=== PATIENT | female | born 1960 | race Caucasian/White ===

== ENCOUNTER 2017-12-17 08:47 | Emergency (ER) | payer OTHER, SELFPAY ==
[2017-12-17 08:49] VITALS: BP 152/88; PULSE 98; RESP 16; TEMP 36.6; O2SAT 98; BMI 28.3
--- NOTE | 2017-12-17 09:10 | VDLE_ITS ---
Reason For Study: LEG PAIN RIGHT LEFT GSV is normal. CFV is compressible, spontaneous, phasic, CFV is compressible, spontaneous, phasic, competent, and demonstrates normal competent and demonstrates normal augmentation. augmentation. FV is compressible, spontaneous, phasic, competent and demonstrates normal augmentation. POP V is compressible, spontaneous, phasic, competent and demonstrates normal augmentation. T/P Trunk is compressible. PTV is compressible. RT PerV is compressible. Procedure Exam performed portable in ED. A preliminary report was called and/or faxed to Dr. Foley. Interpretation Summary Deep veins of the right lower extremity are patent and compressible segmentally. There is no evidence of right lower extremity deep vein thrombosis. Valvular competence appears intact within the proximal deep venous system on the right . The right greater saphenous vein appears patent and compressible segmentally. Ordering Physician: Jonny Foley Referring Physician: Jesus Milton M.D. Performed By: Jing Resendiz RVT
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
--- NOTE | 2017-12-17 10:24 | ED.DEP ---
ED Disposition - Plan for ED Patient: Chief Complaint: Lower Extremity Injury Instructions: ED Strain Muscle Ext Referrals: Jesus Milton MD [Primary Care Provider] - 5-7 Days
[2017-12-17 10:27] VITALS: RESP 16
== END 2017-12-17 10:27 | disposition home or self-care (01) ==
PROVIDERS: Emergency Provider Emergency Medicine; Family Provider Family Medicine; PCP Family Medicine
DX: S86.911A Strain of unspecified muscle(s) and tendon(s) at lower leg level, right leg, initial encounter (principal); X58.XXXA Exposure to other specified factors, initial encounter; Y93.55 Activity, bike riding; Y92.89 Other specified places as the place of occurrence of the external cause; Y99.8 Other external cause status
CPT/HCPCS: 93971; 99282

== ENCOUNTER → 2018-04-06 12:13 | Outpatient (CLI) | payer OTHER, SELFPAY ==
--- NOTE | 2018-04-06 12:17 | RAD_ITS ---
STUDY: X-RAY CHEST REASON FOR EXAM: Female, 58 years old. Bronchitis TECHNIQUE: Frontal and lateral views of the chest. COMPARISON: None. FINDINGS: The lungs are clear and expanded. There is no demonstrated pleural abnormality. Normal size heart. Normal mediastinum and elizabeth. Normal visualized pulmonary arteries. Normal visualized aortic arch and descending thoracic aorta. Normal visualized thoracic spine. Normal visualized ribs, clavicles, and shoulders. There is no demonstrated abnormality of the visualized soft tissue structures of the upper abdomen. RAD/Chest PA and Lateral IMPRESSION: Normal x-ray examination of the chest. Electronically Signed: Jaxson Red MD at 4:49 EDT Tel , Service support ,
== END ==
PROVIDERS: Family Provider Family Medicine; PCP Family Medicine; Referring Provider Family Medicine; Visit Provider Family Medicine
DX: J20.9 Acute bronchitis, unspecified (principal)
CPT/HCPCS: 71046

== ENCOUNTER 2019-04-25 11:56 | Day surgery (SDC) | payer OTHER, SELFPAY ==
--- NOTE | 2019-04-24 17:53 | PCM.HP.OB ---
- Problem List (1) PMB (postmenopausal bleeding) Status: Acute (2) Endometrial polyp Status: Acute History Date of Admission: 04/25/19 History of this : This is a 59 year-old with PMB and a possible polyp on US. Surgical History: Surgical History (Last Updated 04/24/19 @ 17:54 by Kim Huynh DO) History of colonoscopy Z98.890 Allergies nitrofurantoin [From Macrobid] Allergy (Verified 04/18/19 11:21) Rash pine nut Allergy (Verified 04/18/19 11:21) Rash Home Medications: Home Medications Multivitamin [Multiple Vitamins] 1 ea PO DAILY 04/18/19 Smoking Status: Never smoker History Past Pregnancies: Past Pregnancies Delivery Date Name GA/ Weeks Outcome Route Wt Infant Sex Labor Length Anesthesia Delivery Location Provider FOB Review of Systems Constitutional: Denies: Fever Eyes: Denies: Blurred vision HEENT: Denies: Head Aches Cardiovascular: Denies: Chest Pain Respiratory: Denies: Shortness of Breath Gastrointestinal: Denies: Abdominal Pain Genitourinary: Denies: Dysuria Gynecological: Reports: Vaginal bleeding Psychiatric: Denies: Anxiety, Depression Hematologic/ Lymphatic: Denies: Easy Bruising, Easy Bleeding Physical Exam General: Alert, No apparent distress HEENT: Atraumatic Cardiovascular: Regular rate Lungs: Clear to auscultation Abdomen: Soft, Non Tender, Non-Distended Extremities:: No edema Neurological: Neuro grossly intact Assessment/Plan All Active Problems PMB (postmenopausal bleeding) (Acute) Endometrial polyp (Acute) This is a 59 year-old with PMB and a polyp on pelvic US. - R/b/a of a hysteroscopy D&C polypectomy were discussed and pt desires to proceed with surgery.
[2019-04-25] VITALS (7 sets, daily range): BP systolic 132–150; BP diastolic 66–83; PULSE 16–88; RESP 15–16; TEMP 36.1–37; O2SAT 97–100; BMI 29.8
[2019-04-25 12:24] LABS: Hematocrit 45.9 % (37-47); Hemoglobin 15.1 g/dL (12.0-15.0); Mean Corp Hgb Conc 32.9 g/dL (32-36); Mean Corpuscular Hgb 29.3 pg (27.0-32.0); Mean Platelet Vol. 9.6 fl (6.2-12.0); Platelet Count 223 K/mm3 (150-450); RBC Distribution Width CV 12.2 % (11.6-14.6); RBC Distribution Width SD 39.8 fl (35.1-43.9); Red Blood Count 5.16 M/mm3 (4.2-5.4); White Blood Count 7.6 K/mm3 (4.4-11.0)
[2019-04-25] MEDS: Lactated Ringers 1,000 ML 100 ML IV (12:32)
[2019-04-25 12:37] LABS: Internal QC Validated? YES +Cl - CLEAR BKGD; Pregnancy, Urine Negative Negative
--- NOTE | 2019-04-25 13:25 | EMB_PTH ---
PATIENT: KAITY ANGEL LOC: [facility] – [place] U#:[id number] AGE/SX: 59/F ROOM: RE04/25/[address]: Dr. Kim Huynh DO : 1960 BED: DIS: 04/25/2019 SPEC #: [id number] RECD: 04/25/19 15:08 STATUS: CORNELIA DA #: [id number] MARIANN: 04/25/19 13:[address]: Kim Huynh DEPT: SURGICAL PATHOLOGY RECD BY: Johnny Bedolla ENTERED: 04/26/19 11:05 SP TYPE: ENDOM BX/C OTHR DR: Dr. Jesus Cadena MD Tissues: Endometrium, NOS Procedures: Surgery Specimen Level IV HEADER OPERATION: Hysteroscopy, polypectomy, endometrial biopsy, Symphion PRE-OP DIAGNOSIS: Postmenopausal bleeding; endometrial polyp TISSUE SUBMITTED: Endometrial curettings and polyp MICROSCOPIC DIAGNOSIS Endometrial curettings and polyp: Fragments of weakly proliferative endometrium. Fragments of benign ecto- and endocervical epithelium, blood and mucous. See comment. AGUSTO:valeria 04/29/19 COMMENT A few of the fragments have polypoid appearance, may represent fragments of polyp. MICROSCOPIC DESCRIPTION Slides are reviewed. GROSS DESCRIPTION Received in fixative is one container labeled with the patient's name and designated endometrial curettings and polyp. The specimen consists of multiple fragments of hemorrhagic mucoid tissue that in aggregate measure 5 x 3 x 0.3 cm. The entire specimen is submitted in two cassettes. / AGUSTO:valeria 04/26/19 TC:5 CPT: 50701
--- NOTE | 2019-04-25 14:07 | DCINST_ITS ---
You will use the following diet at home:: No restrictions, Regular Discharge Activity: May Drive, May Shower May resume sexual activity in: 1-2 weeks Weight Bearing Status: Full weight bearing Lifting Restrictions: None Call your doctor if you observe: Fever of 101 or Higher, Inability to urinate, Inability to have a bowel movement, Using more than one pad per hour, Shortness of breath, Dizziness, Fainting spells, Chest pain, Increased palpitations (irregular heartbeat), Calf discomfort, Uncontrolled pain Instructions: Dilation and Curettage Allergies/Adverse Reactions: Allergies nitrofurantoin [From Macrobid] Allergy (Verified 04/25/19 12:21) Rash pine nut Allergy (Verified 04/25/19 12:21) Rash Medications to take at Discharge Multivitamin [Multiple Vitamins] 1 ea PO DAILY 04/18/19 Primary Care Physician: Jesus Cadena MD [Primary Care Provider] - Test Results: Test results from this visit will be discussed in further detail at your follow- up appointment, if applicable. Please Follow Up With: Kim Huynh DO When: 1 week Proposed Discharge Date: 04/25/19
--- NOTE | 2019-04-25 14:28 | PCM.OPRPT ---
Problem List (1) PMB (postmenopausal bleeding) Status: Acute (2) Endometrial polyp Status: Acute Report of Operation Date of Procedure: 04/25/19 Pre-Operative Diagnosis: PMB, polyp on US Post-Operative Diagnosis: PMB, 2 flat endometrial polyps noted, atrophic appearing endometrium Surgery/Procedure Performed:: Hysteroscopy, D&C, polypectomy Description of Surgical Findings:: Normal appearing uterine cavity. Bilateral tubal ostia visualized. Atrophic and thin appearing endometrium. There was 1 flat polyp noted on the posterior uterine wall, and 1 flat polyp noted in the left uterine cornua. Minimal descent of uterus and cervix. Type of Anesthesia:: MAC Specimen's removed: Endometrial curettings, polyp Drains: None Estimated Blood Loss (mL): < 10 cc Fluids Replaced: 350 cc fluid deficit Description of Procedure: Patient was taken to the operating room where anesthesia was found to be adequate. She was prepped and draped in the dorsal lithotomy position using yellowfin stirrups. A weighted speculum was placed in the vagina to expose the cervix. A single-tooth tenaculum was placed on the cervix. The cervix was serially dilated to accommodate the hysteroscope. The hysteroscope was advanced into the uterus and distended. The uterine cavity was normal-appearing and bilateral tubal ostia were visualized. There was a flat polypoid lesion on the posterior wall of the uterus and a flat polypoid lesion in the left cornua of the uterus. The lining of the uterus was otherwise thin appearing. The Symphion device was used to remove both polyps. The hysteroscope and Symphion device were then removed from the uterus. A dilation and curettage was performed for scant tissue. Both specimens were sent to pathology for review. All instruments removed from the vagina. Bleeding was hemostatic. Patient was taken to the recovery room in stable condition. Grafts/Implants Used: None - Admit VTE Documentation VTE Present on Admission: No VTE Mechan Device Prophylaxis: SCD's VTE Pharm Prophylaxis ordered?: No
== END 2019-04-25 15:27 | disposition home or self-care (01) ==
LOC: SDC 11:59 → AC 12:01
PROVIDERS: Family Provider Family Medicine; PCP Family Medicine; Referring Provider Obstetrics & Gynecology; Visit Provider Obstetrics & Gynecology
PROC: 0UB98ZZ Excision of Uterus, Via Natural or Artificial Opening Endoscopic (ICD-10-PCS; CPT 58558; principal; 2019-04-25 13:10)
DX: N95.0 Postmenopausal bleeding (principal); N84.0 Polyp of corpus uteri
CPT/HCPCS: 58558; 36415; 81025; 85027; 88305; J7120

== ENCOUNTER → 2020-07-07 15:50 | Outpatient (CLI) | payer OTHER, SELFPAY ==
[2019-04-25 12:22] VITALS: BMI 29.8
--- NOTE | 2020-07-07 15:53 | RAD_ITS ---
STUDY: X-RAY CHEST REASON FOR EXAM: Female, 60 years old. Persistent chest complaints after pneumonia in March. TECHNIQUE: PA and lateral views of the chest. COMPARISON: 04/06/2018. FINDINGS: Lungs well-expanded. There is chronic interstitial changes without acute infiltrate or mass. There is no demonstrated pleural abnormality. Normal size heart. Normal mediastinum and elizabeth. Normal visualized pulmonary arteries. Normal visualized aortic arch and descending thoracic aorta. There are diffuse degenerative changes of the visualized thoracic spine. Normal visualized ribs, clavicles, and shoulders. There is no demonstrated abnormality of the visualized soft tissue structures of the upper abdomen. RAD/Chest PA and Lateral IMPRESSION: Degenerative changes, as described above. No demonstrated acute cardiopulmonary process. There is no interval change. Electronically Signed: Torres Ford DO at 16:06 EST Tel [phone], Service support ,
== END ==
PROVIDERS: PCP Family Medicine; Referring Provider Family Medicine; Visit Provider Family Medicine
DX: J20.9 Acute bronchitis, unspecified (principal)
CPT/HCPCS: 71046

== ENCOUNTER → 2020-10-06 12:54 | Outpatient (CLI) | payer OTHER, SELFPAY ==
[2019-04-25 12:22] VITALS: BMI 29.8
--- NOTE | 2020-10-08 09:35 | PFTCOMP ---
INTRODUCTION: The patient is a 60-year-old female that presents for pulmonary function studies secondary to a diagnosis of reactive airway disease. Respiratory therapy reports good patient effort. Bronchodilators were used during testing. INTERPRETATION: Forced expiration spirometry demonstrates no evidence of a large airways obstructive ventilatory defect. There was no significant response to aerosolized bronchodilators. Spirograms are of good quality and plateau normally. Body plethysmography was performed and reveals uniformly elevated lung volumes across the board, likely spurious in nature. Diffusing capacity by single breath CO is within normal limits. IMPRESSION: Grossly normal pulmonary function studies.
== END ==
PROVIDERS: PCP Family Medicine; Referring Provider Family Medicine; Visit Provider Family Medicine
DX: J45.909 Unspecified asthma, uncomplicated (principal)
CPT/HCPCS: 94060; 94726; 94729

== ENCOUNTER → 2021-12-03 | Outpatient (CLI) | payer OTHER, SELFPAY ==
--- NOTE | 2021-12-03 18:17 | US_ITS ---
STUDY: ABDOMINAL ULTRASOUND - RIGHT UPPER QUADRANT REASON FOR VISIT: Female, 61 years old. ABDOMEN PAIN RUQ PAIN TECHNIQUE: Ultrasound evaluation of the right upper quadrant was performed with real-time and static bryant-scale imaging. TECHNICAL QUALITY: Adequate. COMPARISON: None. FINDINGS: Liver: There is increased echogenicity consistent with fatty infiltration. The bile ducts are within normal limits. There is hepatic color flow. The direction of portal flow is hepatopetal. There is no demonstrated mass lesion. Gallbladder: Normal distended gallbladder. The gallbladder wall measures 1.4 mm. There is a negative sonographic Meeks''s sign. There is no pericholecystic fluid. There is biliary sludge dependent within the gallbladder vs small gallstones. Common Bile Duct (C.B.D.): The common bile duct measures ( in mm): 4.1 Pancreas: Normal size of the head, body of the pancreas. There is increased echogenicity of the pancreas. There is no demonstrated pancreatic mass or cyst. Right Kidney: Normal size of the right kidney. The right kidney measures 11.3 cm. . Normal renal cortex. There is no demonstrated renal mass or cyst. There is no right hydronephrosis. Aorta: It is not visualized. There is too much overlying bowel gas. . US/Abdomen Limited IMPRESSION: Fatty liver. There is biliary sludge dependent within the gallbladder vs small gallstones. Electronically Signed: Donte Wagoner MD at 18:58 EDT ,
== END | disposition home or self-care (01) ==
LOC: US 18:15
PROVIDERS: PCP Family Medicine; Visit Provider Family Medicine
DX: R10.11 Right upper quadrant pain (principal); K76.0 Fatty (change of) liver, not elsewhere classified
CPT/HCPCS: 76705

== ENCOUNTER → 2021-12-31 | Outpatient (CLI) | payer OTHER, SELFPAY ==
--- NOTE | 2021-12-31 09:55 | NM_ITS ---
EXAMINATION: NUCLEAR MEDICINE HEPATOBILIARY SCAN (HIDA SCAN) OF 1157 HOURS ON 12/31/2021 TECHNIQUE: 5.0 mCi technetium 99m choletec was intravenously administered and static images were obtained. COMPARISON: None. FINDINGS: Mild hepatomegaly is suggested. There is early visualization of the gallbladder at 15 minutes. There is free flow of contrast into the duodenum. There is no dilatation of the common duct. There are no findings of an acute or chronic cholecystitis. There are no findings of cystic or common duct obstruction. There is a near normal 47% ejection fraction between 1 minute and 45 minutes. There is no evidence of an adynamic cholecystitis. IMPRESSION 1. Findings suggestive of mild hepatomegaly. 2. No evidence of an acute or chronic cholecystitis. 3. No evidence of an adynamic cholecystitis. 4. No evidence of cystic or common duct obstruction. Electronically Signed: Brock Slater MD at 2:14 EDT , NM/Hepatobilliary Img w/Pharm Int IMPRESSION: undefined
== END | disposition home or self-care (01) ==
PROVIDERS: PCP Family Medicine; Visit Provider Surgery
DX: K82.8 Other specified diseases of gallbladder (principal)
CPT/HCPCS: 78227; A9537

== ENCOUNTER 2022-01-17 06:19 | Day surgery (SDC) | payer OTHER, SELFPAY ==
[2022-01-17] VITALS (7 sets, daily range): BP systolic 102–142; BP diastolic 54–79; PULSE 71–85; RESP 14–16; TEMP 36.8–36.9; O2SAT 93–100; BMI 27.5
--- NOTE | 2022-01-17 | IMM_PTH ---
PATIENT: KAITY ANGEL LOC: [place] U#:[id number] AGE/SX: 61/F ROOM: RE01/17/[address]: Dr. Collette Ji MD : 1960 BED: DIS: 01/17/2022 SPEC #: [id number] RECD: 01/18/22 07:54 STATUS: CORNELIA REVamshi #: [id number] MARIANN: 01/17/22 00:[address]: Collette Ji DEPT: IMMUNOHISTOCHEMISTRY RECD BY: Karl Lira ENTERED: 01/18/22 07:55 SP TYPE: IMMUNO OTHR DR: Dr. Jesus Cadena MD Tissues: Gastric mucous membrane Procedures: H Pylori (initial) PHYSICIAN & INSTITUTION [place] [id number] SPECIMEN INFORMATION: Tissue Source: A. Pre-pyloric biopsy Clinical Info: RUQ fullness, gallbladder sludge Specimen Number: [id number] CPT code: 51112 METHODOLOGY: Deparaffinized sections of prefer/formalin-fixed tissue or PAP/DQ stained slides are incubated with monoclonal/polyclonal antibodies/oligonucleotide probes. Localization is made via biotin free immunoperoxidase method. Appropriate controls are performed and reacted as expected. Results on target cell population are indicated in the following table: RESULTS: ANTIBODY / CLONE RESULT Block A H Pylori (polyclonal) negative These tests were developed and their performance characteristics determined by [facility]. They may not have been cleared or approved by the U.S. Food and Drug Administration. The FDA has determined that such clearance or approval is not necessary. The above immunohistochemical/dualISH markers are ordered and reviewed by the Pathologist. INTERPRETATION: A. Pre-pyloric biopsy: Negative for Helicobacter pylori organisms. SJ:karli 01/18/22
[2022-01-17] MEDS: Lactated Ringers 1,000 ML 15 ML IV (06:58)
--- NOTE | 2022-01-17 07:15 | PCM.HP.BLA ---
History and Physical Date of Admission: 01/17/22 Date of Service:? 01/10/22 MR#: [id number] Acct: [id number] Name:KAITY CHAMBERS Rep #: [id number] : 1960 ? ? Provider: Dr. Collette Ji MD Age/Sex:? 61/F ? ? [place] [facility] [place] Status: Signed Intake Intake Visit Reasons:?DISCUSS PLAN FOR RUQ PAIN Chief Complaint: discuss hida [employer] Required: No Is patient in pain?: No Allergies nitrofurantoin [From Macrobid] Allergy (Verified 01/10/22 09:12) Rashpine nut Allergy (Verified 01/10/22 09:12) Rash Is last menstrual period known: No Post menopausal: Yes Patient : No PFSH Surgical History? History of colonoscopy Family History? Mother Heart disease Hypertension Breast cancerFather Heart disease Hypertension Social History? Smoking Status:? Never smoker alcohol intake:? never substance use type:? does not use HPI HPI HPI: KAITY ANGEL, is a 61 F who presents to the office today for for follow-up of right upper quadrant pain.? Patient did have a HIDA scan that showed a 47% ejection fraction with his normal.? Patient states that she did get her pain was a little bit worse during the HIDA states is normally at 1-2/10 and was may be up to 4/10 during that time.? Patient did have a lot of diarrhea after the HIDA scan as well.? Patient also states she does have the chronic -07/2009 right upper quadrant pain, right under her ribs but it can get worse occasionally with eating but is not consistent.? Patient has been on Nexium 40 mg p.o. daily for about a month and has not really noticed a difference with this. Exam Const General: cooperative, healthy appearing and no acute distress Nutritional Appearance: well nourished HENMT Head: normal to inspection Resp Effort & Inspection: normal respiratory effort Auscultation: clear to auscultation bilaterally Cardio Rate: regular rate Rhythm: regular rhythm GI Inspection: non-distended Palpation: soft, no guarding, no hernias and nontender Skin General: no rashes or lesions noted Neuro General: patient alert, patient awake and patient oriented x3 Extrem General: no clubbing, cyanosis or edema Psych Affect: normal affect COVID (Procedure Consent) Procedure Criteria Procedure Criteria: Yes Elective The surgeon/proceduralist and patient have discussed in detail the risk of exposure to and/or potential harm posed by the COVID-19 virus with having a surgery/procedure at this time versus the risk of? delaying the surgery/procedure. It is not possible to know either the risk of delaying the surgery or procedure or chance of getting an infection with perfect accuracy, but a joint decision was made between the patient and the surgeon/proceduralist ?to proceed at this time with the scheduled surgery/procedure as indicated on the consent form. Assessment and Plan Assessment and Plan (1) RUQ fullness: ?Status:?Chronic ?Comment: for 1.5 years (2) Gallbladder sludge: ?Status:?Acute ?Comment: No obvious sludge on my read and also discussed with our radiologist who agrees Plan Discussed with patient that her HIDA scan was technically within normal limits at 47% again her previous ultrasound was read that there was sludge.? And working on getting an addendum/second opinion to this as I do not see any evidence of this and neither does another radiologist I talked to. I have discussed the above with the patient. I have offered the patient esophagogastroduodenoscopy for evaluation. I have explained the risks/benefits of the procedure and described the procedure.? I have discussed the risks with the patient, including but not limited to:? infection, bleeding, perforation of the GI tract requiring emergency surgery, inability to complete the procedure, injury to any internal organs, complications of anesthesia, etc. - the patient understands and agrees to proceed. I have answered all the patient's questions to the patient's satisfaction and the patient has no further questions. Collette Ji M.D. Pager: [phone] [facility] [address] [place] [address], [address] [place] [address] Office: [phone] Coding Level of Care Code Off vis,est,level 4 Diagnoses RUQ fullness? R19.8 Gallbladder sludge? K82.8 01/12/22 0757 <Electronically signed by Collette Ji MD> Date Collette Ji MD
--- NOTE | 2022-01-17 07:30 | EGD_PTH ---
PATIENT: KAITY ANGEL LOC: [place] U#:[id number] AGE/SX: 61/F ROOM: RE01/17/[address]: Dr. Collette Ji MD : 1960 BED: DIS: 01/17/2022 SPEC #: [id number] RECD: 01/17/22 11:31 STATUS: CORNELIA DA #: [id number] MARIANN: 01/17/22 07:[address]: Collette Ji DEPT: SURGICAL PATHOLOGY RECD BY: Fatimah Marin ENTERED: 01/17/22 12:15 SP TYPE: EGD BIOPSY OT DR: Dr. Jesus Cadena MD Tissues: A - Gastric mucous membrane B - Gastric mucous membrane C - Stomach, NOS Procedures: Surgery Specimen Level IV HEADER OPERATION: EGD PRE-OP DIAGNOSIS: RUQ fullness, gallbladder sludge TISSUE SUBMITTED: A. Pre-pyloric biopsy, B. Gastric body, C. GE junction MICROSCOPIC DIAGNOSIS A. Pre-pyloric biopsy: Mild gastritis. See microscopic description and comment. B. Gastric body, biopsy: Mild gastritis. See microscopic description. C. GE junction, biopsy: Fragments of gastroesophageal mucosa with moderate chronic inflammation. Intestinal metaplasia (goblet cell metaplasia) not identified. See comment. COMMENT A. The results of immunohistochemistry for Helicobacter pylori will be reported separately ([id number]). C. Alcian blue/PAS stain with matched control is used in the evaluation of the specimen. MICROSCOPIC DESCRIPTION Slides are reviewed. A & B. The specimens show fragments of gastric mucosa with chronic inflammatory cell infiltrates in the lamina propria consisting of lymphocytes and plasma cells, consistent with mild chronic gastritis. GROSS DESCRIPTION A. Received is one container labeled with the patient name and designated pre-pyloric. The specimen consists of two irregular fragment of light ferrer soft tissue that measures 0.4x 0.3 x 0.1cm. The specimen is totally submitted in one cassette. B. Received is one container labeled with the patient name and designated gastric body. The specimen consists of one irregular fragment of light ferrer soft tissue that measures 0.6 x 0.2 x 0.1 cm. The specimen is totally submitted in one cassette. C. Received is one container labeled with the patient name and designated GE junction. The specimen consists of one irregular fragment of light ferrer soft tissue that measures 0.3 x 0.3 x 0.1 cm. The specimen is totally submitted in one cassette. /SJ:cc 01/17/22 TC:3 CPT:43727 x3, 72197
--- NOTE | 2022-01-17 07:49 | OP.EGD_ITS ---
Patient Name: Tamiko Shearer Procedure Date: 01/17/2022 7:25 AM Date of : 1960 Age: 61 Procedure: Upper GI endoscopy Indications: Abdominal pain in the right upper quadrant Providers: Collette Ji MD Referring MD: Jesus Cadena Md Medicines: Monitored Anesthesia Care Patient Profile: This is a 61 year old female. Complications: No immediate complications. Procedure: Pre-Anesthesia Assessment: - Prior to the procedure, a History and Physical was performed, and patient medications and allergies were reviewed. The patient's tolerance of previous anesthesia was also reviewed. The risks and benefits of the procedure and the sedation options and risks were discussed with the patient. All questions were answered, and informed consent was obtained. Prior Anticoagulants: The patient has taken no previous anticoagulant or antiplatelet agents. ASA Grade Assessment: Per anesthesia. After reviewing the risks and benefits, the patient was deemed in satisfactory condition to undergo the procedure. After obtaining informed consent, the endoscope was passed under direct vision. Throughout the procedure, the patient's blood pressure, pulse, and oxygen saturations were monitored continuously. The gastroscope was introduced through the mouth, and advanced to the second part of duodenum. The upper GI endoscopy was accomplished without difficulty. The patient tolerated the procedure well. Scope In: 7:34:42 AM Scope Out: 7:42:25 AM Total Procedure Duration Time 0 hours 7 minutes 43 seconds Findings: The Z-line was irregular. Biopsies were taken with a cold forceps for histology. One non-bleeding superficial duodenal ulcer with no stigmata of bleeding was found in the duodenal bulb. The lesion was 2 mm in largest dimension. Mild inflammation characterized by adherent blood was found in the gastric body. Biopsies were taken with a cold forceps for histology. Biopsies were taken with a cold forceps for Helicobacter pylori cultures. The cardia and gastric fundus were normal on retroflexion. The exam of the duodenum was otherwise normal. Impression: - Z-line irregular. Biopsied. - One non-bleeding duodenal ulcer with no stigmata of bleeding. - Gastritis. Biopsied. Recommendation: - Await pathology results. - Discharge patient to home. - Resume previous diet. - Use sucralfate tablets 1 gram PO QID. - Use Nexium (esomeprazole) 40 mg PO daily. - Continue present medications. Procedure Code(s): --- Professional --- 72477, Esophagogastroduodenoscopy, flexible, transoral; with biopsy, single or multiple Diagnosis Code(s): --- Professional --- K22.8, Other specified diseases of esophagus K26.9, Duodenal ulcer, unspecified as acute or chronic, without hemorrhage or perforation K29.70, Gastritis, unspecified, without bleeding R10.11, Right upper quadrant pain CPT copyright 2017 [employer]. All rights reserved. The codes documented in this report are preliminary and upon data coder operator review may be revised to meet current compliance requirements. MD Collette Robb MD 01/17/2022 7:49:14 AM This report has been signed electronically. Number of Addenda: 0 Note Initiated On: 01/17/2022 7:25 AM
--- NOTE | 2022-01-17 07:49 | OP.CCLET_ITS ---
01/17/2022 Jesus Cadena Md Re : Upper GI endoscopy procedure for Tamiko Hernandezr Tammi This procedure was performed on Monday, January 17, 2022. My impressions and recommendations are as follows: Impressions : - Z-line irregular. Biopsied. - One non-bleeding duodenal ulcer with no stigmata of bleeding. - Gastritis. Biopsied. Recommendations : - Await pathology results. - Discharge patient to home. - Resume previous diet. - Use sucralfate tablets 1 gram PO QID. - Use Nexium (esomeprazole) 40 mg PO daily. - Continue present medications. My findings are described in the full procedure note, which is enclosed. If I can be of further assistance, please feel free to contact me at Doctor phone number(s): , Work: . Sincerely, MD Collette Robb MD 01/17/2022 7:49:14 AM This report has been signed electronically.
== END 2022-01-17 08:45 | disposition home or self-care (01) ==
LOC: EN 06:22 → AC 06:23
PROVIDERS: PCP Family Medicine; Referring Provider Family Medicine; Visit Provider Surgery
PROC: 0DJ08ZZ Inspection of Upper Intestinal Tract, Via Natural or Artificial Opening Endoscopic (ICD-10-PCS; CPT 43235; principal; 2022-01-17 07:25)
DX: K29.50 Unspecified chronic gastritis without bleeding (principal); K26.9 Duodenal ulcer, unspecified as acute or chronic, without hemorrhage or perforation
CPT/HCPCS: 43239; 88305; 88342; J7120; J2405

== ENCOUNTER 2022-02-22 09:56 | Day surgery (SDC) | payer OTHER, SELFPAY ==
[2022-02-22] VITALS (9 sets, daily range): BP systolic 134–150; BP diastolic 68–83; PULSE 67–89; RESP 16–18; TEMP 36.1–36.8; O2SAT 94–100; BMI 27.6
[2022-02-22] MEDS: Lactated Ringers 1,000 ML 15 ML IV (10:25)
--- NOTE | 2022-02-22 10:32 | HP.PCM_ITS ---
HPI - General HPI Narrative KAITY ANGEL, is a 62 F who presents for laparoscopic cystectomy due to gallbladder sludge and right upper quadrant discomfort. Patient states since she is last been seen she has completed her Carafate also took the Nexium did not notice much difference as her EGD did show some gastritis/beginning of the ulcer. Patient states her right upper quadrant pain has more been like a 1-2/10 not really more than that since the last office visit. PFSH Medical History History of ulceration No significant medical problems Post-menopausal Wears glasses Home Medications multivitamin 1 ea PO DAILY 04/18/19 [History Last Taken Unknown] Allergy/AdvReac Type Severity Reaction Status Date / Time nitrofurantoin Allergy Rash Verified 02/09/22 13:44 [From Macrobid] pine nut Allergy Rash Verified 02/09/22 13:44 Family History Mother Heart disease Hypertension Breast cancer Father Heart disease Hypertension Surgical History History of colonoscopy History of hysteroscopy Hx of esophagogastroduodenoscopy Social History Smoking Status: Never smoker alcohol intake: never substance use type: does not use Vital Signs Vital Signs Vital Signs: 02/22/22 10:18 02/22/22 10:18 Temperature 98.2 F Temperature Source Temporal Pulse Rate 75 Respiratory Rate 16 Respiratory Pattern Normal Blood Pressure 150/70 H Blood Pressure Mean 96 Blood Pressure Source Monitor Blood Pressure Position Semi-Fowlers Blood Pressure Location Right Arm Pulse Ox 100 Oxygen Delivery Method Room Air Weight Weight: 165 lb 12.602 oz Body Mass Index (BMI) 27.6 Physical Exam Const alert, oriented x3 and no apparent distress HEENT normocephalic and head/scalp atraumatic Resp normal respiratory effort Cardio regular rate GI soft to palpation and non-tender; Negative for non-distended Palpation: Negative for guarding Extremity no clubbing, cyanosis or edema Neuro CN's II-XII intact bilaterally Psych mental status grossly normal Assessment & Plan Assessment/Plan (1) Gallbladder sludge: (2) RUQ fullness: PLAN: Plan Reviewed the anatomy with the patient and discussed the procedure: laparoscopic cholecystectomy with cholangiograms, possible open. Review risks including but not limited to bleeding, infection, hernia, bile leak, retained gallstones requiring another procedure ERCP- Endoscopic Retrograde Cholangiopancreatography, injury to another organ (bile ducts, common bile duct, small bowel, etc.) and conversion to an open procedure. All questions were answered. Patient no further question this time. Collette Ji M.D. Pager: [phone] [facility] [address] [place] [address] Office: [phone]
[2022-02-22] MEDS: Cefazolin 2 GM in 0.9% Normal Saline 100 ML IV (11:01)
[2022-02-22] MEDS: Bupivacaine 0.25% 30 ML Vial OPERA.SITE (11:18)
--- NOTE | 2022-02-22 11:22 | RAD_ITS ---
INDICATION: LAP MARIA C WITH IOC EXAMINATION/TECHNIQUE: Limited spot intraoperative films are presented for evaluation. Total Fluoroscopic Time: 5.3 seconds Number of Fluoroscopic Images: Single CINE sequence. Radiation dosage : 1.47 mGy COMPARISON: None. FINDINGS: Single CINE sequence obtained demonstrated contrast injection into the cystic duct, unremarkable opacification of the cystic duct is visualized, unremarkable opacification of the intra and extrahepatic ducts, no evidence of filling defect is visualized. There is no evidence of biliary ductal dilatation. There is free passage into the duodenum. No evidence of contrast extravasation outside the biliary tree to suggest bile duct injury. RAD/Cholangiogram/ O R,Initial IMPRESSION: Unremarkable intraoperative cholangiogram. Electronically Signed: Jigar Lamb MD at 15:32 EDT ,
--- NOTE | 2022-02-22 11:30 | GALL_PTH ---
PATIENT: KAITY ANGEL LOC: [facility] [place] U[place][id number] AGE/SX: 62/F ROOM: RE02/22/[address]: Dr. Collette Ji MD : 1960 BED: DIS: 02/22/2022 SPEC #: [id number] RECD: 02/22/22 13:08 STATUS: CORNELIA REVamshi #: [id number] MARIANN: 02/22/22 11:[address]: Collette Ji DEPT: SURGICAL PATHOLOGY RECD BY: Karl Lira ENTERED: 02/22/22 13:16 SP TYPE: NILAY GUERRA DR: Licha Mccray DO Tissues: Gallbladder, NOS Procedures: Surgery Specimen Level III HEADER OPERATION: Laparoscopic cholecystectomy with IOC PRE-OP DIAGNOSIS: Gallbladder sludge and right upper quadrant discomfort TISSUE SUBMITTED: Gallbladder MICROSCOPIC DIAGNOSIS Gallbladder, cholecystectomy: Chronic cholecystitis. AM:valeria 02/23/2022 MICROSCOPIC DESCRIPTION Slides are reviewed. GROSS DESCRIPTION Received is one container labeled with the patient's name and designated gallbladder. The specimen consists of a gallbladder measuring 10 cm in length and up to 3 cm in diameter. The external surface is pink-ferrer, smooth and glistening for the most part. Focally it is granular, hemorrhagic and contains cautery artifact. The gallbladder contains green-yellow mucoid bile. No stones are identified in the container or in the gallbladder. The mucosa is bile-stained and without any mass lesions. The gallbladder wall measures up to 0.1 cm in thickness. Propulsion Engineer sections from the gallbladder and the cystic duct are submitted in one cassette. / SJ:rg 02/22/2022 TC:3 CPT: 18639
--- NOTE | 2022-02-22 11:59 | OP.PCM_ITS ---
Report of Operation Date of Procedure: 02/22/22 Pre-Operative Diagnosis: Gallbladder sludge, right upper quadrant pain Post-Operative Diagnosis: Same Surgery/Procedure Performed:: Laparoscopic cholecystectomy with cholangiograms Surgeon: Collette Ji manager harbor: Nancy Payton Type of Anesthesia: General/Supplemental Anesthesiologist: Sunny Gallardo Special Medications: Ancef 2 g IV x1 Specimen's removed: Gallbladder Estimated Blood Loss (mL): < 10 cc Description of Procedure: Indications: this is a 62 year-old female who developed abdominal pain/nausea/vomiting and on workup was found to have cholelithiasis, with a normal common bile duct. Laparoscopic cholecystectomy was elected. Description procedure: The patient was placed on operating table in supine position. A timeout was completed verifying correct patient, procedure, site, position and special equipment prior to beginning procedure. General Anesthesia was induced. The abdomen was prepped and draped in usual sterile fashion. An incision was made in the natural skin line above the umbilicus. The fascia was elevated and incised. The peritoneum was elevated and incised. Entry into the peritoneum was confirmed visually and no bowel was noted in the vicinity of the incision. Jang trocar was placed. The abdomen was insufflated with carbon dioxide to a pressure of 12-15 mmHg. Patient tolerated insufflation well. The laparoscope was then inserted and abdomen inspected. No injuries from initial trocar placement were noted. Additional trochars were then inserted in the following locations 5 mm trocar in the epigastrium and 2 more 5 mm trochars along the right costal margin. The abdomen was inspected no abnormalities were found. The table is placed in reverse Trendelenburg position with the right side up. The dome of the gallbladder was grasped with atraumatic grasper passed through the lateral port and retracted over the dome of the liver. Infundibulum was then grasped with atraumatic grasper through the midclavicular port and retracted to the right lower quadrant. This maneuver exposed Calot's triangle. The peritoneum overlying the gallbladder infundibulum was then incised and cystic duct and artery identified and circumferentially dissected. Carvajal catheter was used for cholangiograms. The cholangiogram showed good filling of the common bile duct into the duodenum with no filling defects, good filling of the right and left bile ducts as well. The cystic duct and artery were then doubly clipped and divided close to the gallbladder. The gallbladder then dissected from its peritoneal attachments by electrocautery. Hemostasis was checked and the gallbladder and contained stones were removed using the endoscopic retrieval bag through the umbilical port. The gallbladder is passed off table as specimen. The gallbladder fossa was irrigated with saline and hemostasis obtained. There is no evidence of bleeding from the gallbladder fossa or cystic artery leakage of bile from the cystic duct stump. Secondary trochars removed under direct vision. No bleeding was noted the trocar sites. The laparoscope was withdrawn and umbilical trocar removed. The abdomen was allowed to collapse. The fascia of the 12 mm trocar was closed with a [id number] 0 Vicryl suture. The skin was closed with sutures of 4-0 Monocryl and Steri-Strips. The patient was extubated. The patient tolerated procedure well and was taken to the postanesthesia care un it in stable condition. Complications none
--- NOTE | 2022-02-22 12:01 | DCINST_ITS ---
Discharge Instructions Diet Discharge Diet: Light diet - advance as tolerated Activity Discharge Activity: May Not Drive (while taking narcotic pain medications.) May shower in (days): 1 Lifting Restrictions: no lifting >20 lbs x 2 wks, no strenuous exercise for 4 wks Dressing / Incision Call your doctor if your incision/area has: Continuous Slow Oozing, Sudden Increased Bleeding, Increased Pain/ Swelling, Increased Redness, Foul Smelling Discharge and Swelling at the incision site Call your doctor if you observe: Fever of 101 or Higher Remove Dressing in: 2 days Cleanse incision/area with: Soap & Water Additional Dressing/Incision Instructions:: Steri-Strips will fall off in 7 to 10 days, if they do not fall off okay to remove after 10 days. Follow Up Care Please Follow Up With: Collette Ji MD When: Call the office for a follow-up appointment 2 weeks; after 5 PM and on the weekends call [phone] with any concerns. Test Results: Test results from this visit will be discussed in further detail at your follow- up appointment, if applicable. Discharge Plan Admission Attending Provider: Collette Ji Primary Care Provider: Licha Mccray Discharge Orders/Prescriptions Prescriptions: New oxycodone-acetaminophen 5-325 mg tablet 1 tab PO Q6H PRN (Reason: pain) 3 Days Qty: 10 0RF Continued multivitamin 1 EACH tablet 1 ea PO DAILY Referrals / Follow Up: Licha Mccray DO [Primary Care Provider] - Disposition Disposition (needs filled in before D/C Order can be placed): Home, Self Care
[2022-02-22] MEDS: oxyCODONE 5 MG Tablet PO (14:45)
[2022-02-22] MEDS: Acetaminophen 325 MG Tablet PO (14:45)
== END 2022-02-22 15:22 | disposition home or self-care (01) ==
LOC: SDC 10:00 → AC 10:00
PROVIDERS: PCP Family Medicine; Referring Provider Surgery; Visit Provider Surgery
PROC: (CPT 47610; principal; 2022-02-22 11:10)
DX: K81.1 Chronic cholecystitis (principal)
CPT/HCPCS: 47562; 00790; 74300; 76000; 88304; 93005; J7120; J2405

== ENCOUNTER → 2022-06-21 | Outpatient (CLI) | payer OTHER, SELFPAY ==
[2022-06-21 10:02] LABS: Hemoglobin 14.5 g/dL (12.0-15.0); Mean Corpuscular Hgb 28.9 pg (27.0-32.0); Mean Corpuscular Volume 87.8 fL (81-99); Mean Platelet Vol. 10.4 fl (6.2-12.0); Platelet Count 211 K/mm3 (150-450); RBC Distribution Width CV 12.3 % (11.6-14.6); RBC Distribution Width SD 39.8 fl (35.1-43.9); Red Blood Count 5.01 M/mm3 (4.2-5.4); White Blood Count 4.9 K/mm3 (4.4-11.0)
[2022-06-21 10:49] LABS: ALB/GLOB Ratio 1.2 RATIO (0.9-2.4); AST(SGOT) 17 U/L (15-37); Alanine Aminotransfer ALT/SGPT 26 U/L (13-56); Alkaline Phosphatase 71 U/L (45-117); Anion Gap 4 (5-15); BUN 11 mg/dL (7-18); BUN/Creat Ratio 15.8 RATIO (10-20); Calcium,Total 9.3 mg/dL (8.5-10.1); Chloride 106 mmol/L (98-107); Cholesterol 214 mg/dL (200); EST Glomerular Filtration Rate 91 mL/min (>60); Est Glom Filt Rate - Afr Amer 110 mL/min (>60); Globulin 3.4 g/dL (2.2-4.2); Glucose 91 mg/dL (74-106); High Density Lipoprotein 77 mg/dL; Potassium 4.2 mmol/L (3.5-5.1); Protein, Total 7.4 g/dL (6.4-8.2); Sodium Level 141 mmol/L (136-145); Triglycerides 78 mg/dL; Very Low Density Lipoprotein 16 mg/dL (5-40)
== END | disposition home or self-care (01) ==
LOC: MFPLAB 08:38
PROVIDERS: PCP Family Medicine; Visit Provider Nurse Practitioner Family
DX: Z13.1 Encounter for screening for diabetes mellitus (principal); Z13.220 Encounter for screening for lipoid disorders
CPT/HCPCS: 36415; 80053; 80061; 85027

== ENCOUNTER → 2023-10-02 | Outpatient (CLI) | payer BC, SELFPAY ==
[2023-10-02 10:07] LABS: Hematocrit 42.8 % (37-47); Hemoglobin 14.1 g/dL (12.0-15.0); Mean Corp Hgb Conc 32.9 g/dL (32-36); Mean Corpuscular Hgb 29.5 pg (27.0-32.0); Mean Corpuscular Volume 89.5 fL (81-99); Mean Platelet Vol. 9.9 fl (6.2-12.0); Platelet Count 202 K/mm3 (150-450); RBC Distribution Width CV 12.3 % (11.6-14.6); RBC Distribution Width SD 40.2 fl (35.1-43.9); Red Blood Count 4.78 M/mm3 (4.2-5.4)
[2023-10-02 11:31] LABS: Anion Gap 6 (5-15); BUN 16 mg/dL (7-18); BUN/Creat Ratio 21.7 RATIO (10-20); Calcium,Total 9.3 mg/dL (8.5-10.1); Chloride 104 mmol/L (98-107); Cholesterol 249 mg/dL (200); Creatinine, Serum 0.74 mg/dL (0.55-1.02); EST Glomerular Filtration Rate 85 mL/min (>60); Est Glom Filt Rate - Afr Amer 103 mL/min (>60); Glucose 101 mg/dL (74-106); High Density Lipoprotein 83 mg/dL; Potassium 4.2 mmol/L (3.5-5.1); Sodium Level 139 mmol/L (136-145); Triglycerides 70 mg/dL; Very Low Density Lipoprotein 14 mg/dL (5-40)
== END | disposition home or self-care (01) ==
PROVIDERS: PCP Family Medicine; Referring Provider Nurse Practitioner Family; Visit Provider Nurse Practitioner Family
DX: Z00.00 Encounter for general adult medical examination without abnormal findings (principal); Z13.1 Encounter for screening for diabetes mellitus; Z13.220 Encounter for screening for lipoid disorders
CPT/HCPCS: 36415; 80048; 80061; 85027

== ENCOUNTER → 2023-10-18 | Outpatient (CLI) | payer BC, SELFPAY ==
--- NOTE | 2023-10-18 12:49 | BD_ITS ---
STUDY: DUAL ENERGY X-RAY ABSORPTIOMETRY / DXA REASON FOR EXAM: Female, 63 years old. Z780 TECHNIQUE: Bone Mineral Density (BMD) measurements of lumbar spine and bilateral hips were obtained. COMPARISON: None. FINDINGS: Lumbar Spine (L1-L4): g/cm2 (1.048) / T-score (0.0) / Z-score (1.6) Findings are suggestive of normal bone density with a low fracture risk. Left Femur Total: g/cm2 (0.934) / T-score (-0.1) / Z-score (1.0) Left Femoral Neck: g/cm2 (0.745) / T-score (-0.9) / Z-score (0.5) Right Femur Total: g/cm2 (0.879) / T-score (-0.5) / Z-score (0.6) Right Femoral Neck: g/cm2 (0.719) / T-score (-1.2) / Z-score (0.2) BD/Dexa Bone Density Study IMPRESSION: The patient is considered osteopenic as outlined below according to World Tone Organization (WHO) criteria with a low fracture risk. Reference Information: The T-score is the number of standard deviations above or below the standard which is normal for young adults at their peak bone mineral density. The World Health Organization (WHO) interprets the T-scores as follows: Above -1 Normal bone density Between -1 and -2.5 Osteopenia Equal to / or below -2.5 Osteoporosis As a practical clinical guideline, osteopenia may be graded as follows: Mild -1 through -1.5 Moderate -1.6 through -2.0 Severe -2.1 through -2.4 The Z-score is the number of standard deviations above or below age-matched controls. A Z-score of less than -1.5 would be considered abnormal. References: 1. NIH Osteoporosis and Related Bone Diseases www osteo.org 2. International Society for Clinical Densitometry www iscd.org 3. National Osteoporosis Foundation www nof.org Electronically Signed: Charles Mackenzie MD at 11:01 EDT ,
== END | disposition home or self-care (01) ==
PROVIDERS: PCP Family Medicine; Referring Provider Nurse Practitioner Family; Visit Provider Nurse Practitioner Family
DX: Z13.820 Encounter for screening for osteoporosis (principal); Z78.0 Asymptomatic menopausal state
CPT/HCPCS: 77080

== ENCOUNTER → 2024-10-30 | Outpatient (CLI) | payer BC, SELFPAY ==
[2024-10-30 13:09] LABS: ALB/GLOB Ratio 1.5 RATIO (0.9-2.4); AST(SGOT) 21 U/L (<=31); Alanine Aminotransfer ALT/SGPT 21 U/L (<=34); Albumin, Serum 4.4 g/dL (3.4-4.8); Alkaline Phosphatase 68 U/L (35-104); Anion Gap 11 (5-15); BUN 13 mg/dL (4-19); BUN/Creat Ratio 19.1 RATIO (10-20); Calcium,Total 9.5 mg/dL (7.6-11.0); Carbon Dioxide 25.1 mmol/L (21.0-32.0); Chloride 104 mmol/L (98-108); Cholesterol 251 mg/dL (<=200); Creatinine, Serum 0.69 mg/dL (0.70-1.20); EST Glomerular Filtration Rate 98 (>60); Globulin 2.9 g/dL (2.2-4.2); Glucose 99 mg/dL (70-99); High Density Lipoprotein 75 mg/dL; Low Density Lipoprotein Calc. 155 mg/dL; Potassium 4.3 mmol/L (3.3-5.1); Protein, Total 7.3 g/dL (5.9-8.4); Sodium Level 140 mmol/L (133-145); Total Bilirubin 0.45 mg/dL (0.00-1.30); Triglycerides 106 mg/dL; Very Low Density Lipoprotein 21 mg/dL (5-40); cholesterol:hdl ratio screen 3.34
== END | disposition home or self-care (01) ==
LOC: MTLAB 08:07
PROVIDERS: PCP Family Medicine
DX: Z13.220 Encounter for screening for lipoid disorders (principal)
CPT/HCPCS: 36415; 80053; 80061

== ENCOUNTER → 2024-11-28 | Outpatient (CLI) | payer BC, SELFPAY ==
--- NOTE | 2024-11-28 07:33 | US_ITS ---
PROCEDURE: ABDOMEN LIMITED 11/28/2024 REASON FOR EXAM: R FLANK PAIN COMPARISON: December 03, 2021. FINDINGS: Liver: Grossly normal size and echotexture. Liver measures 17.1 cm. Gallbladder: Surgically absent. Common bile duct: Normal measuring 5.1 mm . Pancreas: Normal Other: Visualized portions of the right kidney are unremarkable. No right upper quadrant ascites. US/Abdomen Limited IMPRESSION: Borderline hepatomegaly. Reading Location: [id number]
--- OUTSIDE RECORDS SUMMARY | 2024-11-28 07:34 | XMS RPT_ITS | CCD ---
Author Organization [facility] Care Team Providers Care Fuel Cell Battery Technician Name Role Phone KENA, DR JAXSON Bennett Admitting Unavaila ble KENA, DR JAXSON Bennett Attending Unavaila ble KENA, DR JAXSON Bennett Primary Care Unavaila ble HAAGEN, KAREN Consulting Unavailable PROVIDER, UNKNOWN Consulting Unavailable KENA, DR JAXSON Bennett Attending Unavaila ble KENA, DR JAXSON Bennett Primary Care Unavaila ble KENA, DR JAXSON Bennett Admitting Unavaila ble KENA, DR JAXSON Bennett Admitting Unavaila ble KENA, DR JAXSON Bennett Attending Unavaila ble HAAGEN, KAREN Consulting Unavailable KENA, DR JAXSON Bennett Primary Care Unavaila ble PROVIDER, UNKNOWN Consulting Unavailable KENA, DR JAXSON Bennett Admitting Unavaila ble KENA, DR JAXSON Bennett Attending Unavaila ble KENA, DR JAXSON Bennett Primary Care Unavaila ble HAAGEN, KAREN Referring Unavailable HAAGEN, KAREN Consulting Unavailable PROVIDER, UNKNOWN Consulting Unavailable KYM LOUIS MD Attending Unavailable KYM LOUIS MD Primary Care Unavailable KYM LOUIS MD Admitting Unavailable Dr. Kunal Cadena Primary Care Provider Dr. Kunal Cadena Referring Provider Dr. Collette Ji Attending Provider Dr. Collette Ji Other Provider Dr. Collette Ji Referring Provider DO Licha Mccray Primary Care Provider DO Licha Mccray Primary Care Provider [phone] DO Licha Mccray Referring Provider Dr. Collette Ji Attending Provider Kunal Temple MD Primary Care Provider Kunal Temple MD Primary Care Provider JOLEEN REICH Attending Unavailable JOLEEN REICH Referring Unavailable KUNAL TEMPLE Primary Care Unavailable JOLEEN REICH Referring Unavailable KUNAL TEMPLE Primary Care Unavailable Guido Aguayo MD Primary Care Provider McMorrow SANDAL PARTS ASSEMBLER-C, Junaid Attending Provider Mc[place]orrow SANDAL PARTS ASSEMBLER-C, Junaid Referring Provider McMorrow SANDAL PARTS ASSEMBLER, Junaid Attending Unavailable Kelseyorrow SANDAL PARTS ASSEMBLERJunaid Referring Unavailable Guido Aguayo Primary Care Unavailable Guido Aguayo Primary Care Unavailable Guido Aguayo Attending Unavailable Guido Aguayo Referring Unavailable Allergies Allergy Classification Reported Allergen(s) Allergy Type Date of Onset Reaction(s) Facility (1 source) Nitrofurantoin Drug Allergy [facility] Repository (7 sources) Nitrofurantoin Drug Allergy 9 Rash [facility] (15 sources) [place] nut; Translations: [PINE NUT] Allergy to substance 9 Hives, Vomiting [facility] (8 sources) NITROFURANTOIN, MACROCRYSTALS / Nitrofurantoin, Monohydrate; Translations: [NITROFURANTOIN MONOHYD/M-CRYST] Drug Allergy 6 [facility] Work Phone: (1 source) Nitrofurantoin Drug Allergy 2 [facility] Repository (1 source) [place] nut Drug allergy (disorder) 2 [facility] Medications Current Medications Medication Drug Class(es) Dates Sig (Normalized) Sig (Original) acetaminophen 325 mg / oxyCODONE hydrochloride 5 mg oral tablet (4 sources) Opioid Agonist Start: 02-22-2022 take 1 tablet by mouth every six hours as needed for pain Oxycodone-Acetami nophen 5-325 mg tablet Active 1 {tbl} PO EVERY 6 HOURS as needed for pain 10 February 22, 2022 Start: 02-22-2022 take 1 tablet by roel th every six hours Oxycodone-Acetaminophen Active 1 TABLET PO EVERY 6 HOURS 10 February 22, 2022 esomeprazole 40 mg delayed release oral capsule (2 sources) Proton Pump Inhibitor Start: 12-24-2021 take 40 mg by mouth once daily Esomeprazole Magnesium Active 40 MG PO DAILY December 24, 2021 12:00am Start: 12-10-2021 take 1 capsule by [facility] once daily Esomeprazole Magnesium (Nexium) 20 mg capsule,delayed release(DR/EC) Active 20 MG PO DAILY December 10, 2021 12:00am fluocinolone acetonide 0.92201 mg/mg topical ointment (8 sources) Corticosteroid Start: 07-26-2021 End: 10-07-2022 fluocinolone (SYNALAR) 0.025 % ointment Indications: Lichen sclerosus et atrophicus Apply small amount bid X 2 weeks, daily X 2 weeks then prn 15 g 5 10/07/2022 Active Comment on above: Apply small amount b id X 2 weeks, daily X 2 weeks then prn Multivitamin 1 EACH tablet (1 source) Start: 04-18-2019 Multivitamin 1 EACH tablet Active 1 NMA PO DAILY April 18, 2019 1:00am Multivitamin preparation (6 sources) Start: 04-18-2019 Multivitamin A ctive 1 EACH PO DAILY April 18, 2019 12:00am Start: 04-18-2019 Multivitamin A ctive 1 EACH PO DAILY April 18, 2019 1:00am MULTIVITAMIN TAB (7 sources) Start: 09-07-2005 MULTIVITAMIN T AB Take one(1) tablet daily. 0 09/07/2005 Active Comment on above: Take one(1) tablet d aily. sucralfate 1000 mg oral tablet (1 source) Aluminum Complex Start: 01-17-2022 take 1 g by mouth four times daily 1 hour(s) before bedtime Sucralfate Active 1 GM PO 4 TIMES DAILY 56 January 17, 2022 12:00am Take 1 hour before meals and at bedtime Problems Active Problems Problem Classification Problem Date Documented Da te Episodic/Chronic Abdominal pain (1 source) Unspecified abdominal pain; Translations: [Unspecified abdominal pain] Onset: 5 Episodic Biliary tract disease (15 sources) Biliary sludge; Translations: [Other specified diseases of gallbladder] Episodic Esophageal disorders (19 sources) Gastroesophageal reflux disease; Translations: [Gastro-esophageal reflux disease without esophagitis] Onset: 3 Chronic Immunizations and screening for infectious disease (3 sources) Contact with and (suspected) exposure to other viral communicable diseases; Translations: [Patient encounter status] Onset: 0 Episodic Menopausal disorders (7 sources) Postmenopausal bleeding; Translations: [Postmenopausal bleeding] 04-24-2019 Chronic Nausea and vomiting (12 sources) Nausea and vomiting; Translations: [Nausea with vomiting, unspecified] Episodic Other female genital disorders (7 sources) Polyp of corpus uteri; Translations: [Polyp of corpus uteri] 04-24-2019 Episodic Other gastrointestinal disorders (6 sources) Finding of abdomen; Translations: [Other specified symptoms and signs involving the digestive system and abdomen] 12-10-2021 Episodic Comment on above: for 1.5 years Other gastrointestinal disorders (9 sources) Other specified symptoms and signs involving the digestive system and abdomen; Translations: [Other symptoms involving abdomen and pelvis] Episodic Other screening for suspected conditions (not mental disorders or infectious disease) (7 sources) Patient encounter status; Translations: [Encounter for screening mammogram for malignant neoplasm of breast] Onset: 5 Episodic Other skin disorders (8 sources) Lichen sclerosus et atrophicus; 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 Residual codes; unclassified (1 source) Acquired absence of other specified parts of digestive tract; Translations: [Other postprocedural status] 03-07-2022 Episodic Unclassified (2 sources) ENCOUNTER FOR SCREENING FOR COVID-19; Translations: [ENCOUNTER FOR SCREENING FOR COVID-19] Onset: 1 Viral infection (1 source) COVID-19; Translations: [COVID-19] Onset: 0 Past or Other Problems Problem Classification Problem Date Documented Da te Episodic/Chronic Unclassified (1 source) ENCOUNTER FOR SCREENING FOR COVID-19; Translations: [ENCOUNTER FOR SCREENING FOR COVID-19] Onset: 02-10-2021 Unclassified (3 sources) Patient encounter status 10-14-2024 Results Test Name Value Interpretation Reference Range Facility Anion gap in Serum or Plasma Ordered By: Junaid Lott on 10-30-2024 Anion gap [Moles/Vol] 11 mmol/L 5-15 [facility] BUN/creatinine ratioOrdered By: Junaid Lott on 10-30-2024 Urea nitrogen/Creatinine [Mass ratio] 19.1 mg/mg 10-20 [facility] Bilirubin, totalOrdered By: Junaid Rasnabeel on 10-30-2024 Bilirubin [Mass/Vol] 0.45 mg/dL 0.00-1.30 [facility] Calculated very low density lipoprotein (VLDL) cholesterol measurementOrdered By: [facility]unaid [facility] 10-30-2024 Calculated very low density lipoprotein (VLDL) cholesterol measurement 21 mg/dL 5-40 [facility] Carbon dioxide, total [Moles /volume] in Central venous bloodOrdered By: Junaid [facility] on 10-30-2024 CO2 [Moles/Vol] 25.1 mmol/L 21.0-32.0 [facility] Chloride assayOrdered By: An shelly [facility] on 10-30-2024 Chloride [Moles/Vol] 104 mmol/L 98-108 [facility] Comprehensive Metabolic Prof ilon 10-30-2024 Albumin [Mass/Vol] 4.4 g/dL Normal 3.4-4.8 [facility] Comment on above: Order Comment: Order Date: 10/29/24 Order Info: [id number] - CMP Order Info: [id number] - LIPID Performed By: #### L [id number] #### [facility] [address] [place], [place], [id number] Albumin/Globulin [Mass ratio] 1.5 {ratio} Normal 0.9-2.4 [facility] Comment on above: Order Comment: Order Date: 10/29/24 Order Info: [id number] - CMP Order Info: [id number] - LIPID Performed By: #### L [id number] #### [facility] [address] [place], [address] ALK PHOS 68 U/L Normal 35-104 [facility] Comment on above: Order Comment: Order Date: 10/29/24 Order Info: [id number] - CMP Order Info: [id number] - LIPID Performed By: #### L [id number] #### [facility] [address] [place], [address] ALT [Catalytic activity/Vol] 21 U/L Normal <=34 [facility] Comment on above: Order Comment: Order Date: 10/29/24 Order Info: [id number] - CMP Order Info: [id number] - LIPID Performed By: #### L [id number] #### [facility] [address] [place], [id number] [phone] [Catalytic activity/Vol] 21 U/L Normal <=31 [facility] Comment on above: Order Comment: Order Date: 10/29/24 Order Info: [id number] - CMP Order Info: [id number] - LIPID Performed By: #### L [id number] #### [facility] [address] [place], [address] Bilirubin [Mass/Vol] 0.45 mg/dL Normal 0.00-1.30 [facility] Comment on above: Order Comment: Order Date: 10/29/24 Order Info: [id number] - CMP Order Info: [id number] - LIPID Performed By: #### L [id number] #### [facility] [address] [place], [address] BUN/CRE 19.1 RATIO Normal 10-20 [facility] Comment on above: Order Comment: Order Date: 10/29/24 Order Info: [id number] - CMP Order Info: [id number] - LIPID Performed By: #### L [id number] #### [facility] [address] [place], [address] Calcium [Mass/Vol] 9.5 mg/dL Normal 7.6-11.0 [facility] Comment on above: Order Comment: Order Date: 10/29/24 Order Info: [id number] - CMP Order Info: [id number] - LIPID Performed By: #### L [id number] #### [facility] [address] [place], [address] Chloride [Moles/Vol] 104 mmol/L Normal 98-108 [facility] Comment on above: Order Comment: Order Date: 10/29/24 Order Info: 0786-1 - CMP Order Info: [id number] - LIPID Performed By: #### L [id number] #### [facility] [address] [place], [address] CO2 [Moles/Vol] 25.1 mmol/L Normal 21.0-32.0 [facility] Comment on above: Order Comment: Order Date: 10/29/24 Order Info: [id number]- - CMP Order Info: [id number] - LIPID Performed By: #### L [id number] #### [facility] [address] [place], [address] Creatinine [Mass/Vol] 0.69 mg/dL Low 0.70-1.20 [facility] Comment on above: Order Comment: Order Date: 10/29/24 Order Info: [id number] - CMP Order Info: [id number] - LIPID Performed By: #### L [id number] #### [facility] [address] [place], [address] GAP 11 Normal 5-15 [facility] Comment on above: Order Comment: Order Date: 10/29/24 Order Info: [id number]- - CMP Order Info: [id number] - LIPID Performed By: #### L [id number] #### [facility] [address] [place], [address] GFR/1.73 sq M.predicted among non-blacks MDRD (S/P/Bld) [Vol rate/Area] 98 mL/min/{1.73_m2} Normal >60 [facility] Comment on above: Order Comment: Order Date: 10/29/24 Order Info: [id number]- - CMP Order Info: [id number] - LIPID Result Comment: mL/m in/1.73m2 CKD-EPI Creatinine Equation (2020) Performed By: #### L [id number] #### [facility] [address] [place], [address] Globulin (S) [Mass/Vol] 2.9 g/dL Normal 2.2-4.2 [facility] Comment on above: Order Comment: Order Date: 10/29/24 Order Info: [id number] - CMP Order Info: [id number] - LIPID Performed By: #### L [id number] #### [facility] [address] [place], [address] Glucose [Mass/Vol] 99 mg/dL Normal 70-99 [facility] Comment on above: Order Comment: Order Date: 10/29/24 Order Info: [id number] - CMP Order Info: [id number] - LIPID Performed By: #### L [id number] #### [facility] [address] [place], [address] Potassium [Moles/Vol] 4.3 mmol/L Normal 3.3-5.1 [facility] Comment on above: Order Comment: Order Date: 10/29/24 Order Info: 0786-1 - CMP Order Info: [id number] - LIPID Performed By: #### L [id number] #### [facility] [address] [place], [address] Sodium [Moles/Vol] 140 mmol/L Normal 133-145 [facility] Comment on above: Order Comment: Order Date: 10/29/24 Order Info: 0786-1 - CMP Order Info: [id number] - LIPID Performed By: #### L [id number] #### [facility] [address] [place], [address] T PROT 7.3 g/dL Normal 5.9-8.4 [facility] Comment on above: Order Comment: Order Date: 10/29/24 Order Info: [id number] - CMP Order Info: [id number] - LIPID Performed By: #### L [id number] #### [facility] [address] [place], [place], [address] Urea nitrogen [Mass/Vol] 13 mg/dL Normal 4-19 [facility] Comment on above: Order Comment: Order Date: 10/29/24 Order Info: [id number] - CMP Order Info: [id number] - LIPID Performed By: #### L [id number] #### [facility] [address] [place], [place], [id number] Glomerular filtration rate ( GFR) estimation/1.73 sq m using serum, plasma, or whole bOrdered By: Junaid Lott on 10-30-2024 GFR/1.73 sq M.predicted among non-blacks MDRD (S/P/Bld) [Vol rate/Area] 98 mL/min/{1.73_m2} >60 [facility] Comment on above: mL/min/1.73m2 CKD-EP I Creatinine Equation (2020) LDL calc ser/plasOrdered By: Junaid Lott on 10-30-2024 Cholesterol in LDL [Mass/Vol] 155 mg/dL [facility] Comment on above: Vcjwlcdzqc=422-122 m g/dL & Higher Kkpv=179 mg/dL or greater Laboratory - Chemistry and C hemistry - challengeOrdered By: Junaid Lott on 10-30-2024 AST [Catalytic activity/Vol] 21 U/L <32 [facility] Lipid Profileon 10-30-2024 CHOL:HDL 3.34 Normal [facility] Comment on above: Order Comment: Order Date: 10/29/24 Order Info: 0786-1 - CMP Order Info: [id number] - LIPID Performed By: #### L [id number] #### [facility] [address] [place], [place], [id number] Cholesterol [Mass/Vol] 251 mg/dL High <=200 [facility] Comment on above: Order Comment: Order Date: 10/29/24 Order Info: 0786-1 - CMP Order Info: [id number] - LIPID Result Comment: Chol esterol level, Desirable <200 mg/dL Borderline high cholesterol 200-239 mg/dL High cholesterol >=240 mg/dL Recommendations of the NCEP Adult Treatment Panel for the following risk-cutoff thresholds for the [place] population. Performed By: #### L [id number] #### [facility] [address] [place], [address] Cholesterol in HDL [Mass/Vol] 75 mg/dL Normal [facility] Comment on above: Order Comment: Order Date: 10/29/24 Order Info: [id number] - CMP Order Info: [id number] - LIPID Result Comment: Vandana onal Cholesterol Education Program (NCEP) guidelines: <40 mg/dL: Low HDL-cholesterol (major risk factor for CHD) >= 60 mg/dL: High HDL-cholesterol (negative risk factor for CHD) HDL-cholesterol is affected by a number of factors, e.g. smoking, exercise, hormones, sex and age. Performed By: #### L [id number] #### [facility] [address] [place], [address] Cholesterol in LDL [Mass/Vol] 155 mg/dL Normal [facility] Comment on above: Order Comment: Order Date: 10/29/24 Order Info: [id number]- - CMP Order Info: [id number] - LIPID Result Comment: Bord fudkjh=504-858 mg/dL Higher Qekn=612 mg/dL or greater Performed By: #### L [id number] #### [facility] [address] [place], [address] Cholesterol in VLDL [Mass/Vol] 21 mg/dL Normal 5-40 [facility] Comment on above: Order Comment: Order Date: 10/29/24 Order Info: [id number] - CMP Order Info: [id number] - LIPID Performed By: #### L [id number] #### [facility] [address] [place], [address] Triglyceride [Mass/Vol] 106 mg/dL Normal [facility] Comment on above: Order Comment: Order Date: 10/29/24 Order Info: [id number] - CMP Order Info: [id number] - LIPID Result Comment: The drugs N-Acetylcysteine and Metamizole may falsely depress this assay. Normal range: <150 mg/dL Borderline High: 150-199 mg/dL High: 200-499 mg/dL Very High: >500 mg/dL Performed By: #### L [id number] #### [facility] [address] [place], [address] Potassium measurement (mass/ volume)Or[facility] By: [facility] 10-30-2024 Potassium (Unsp spec) [Mass/Vol] 4.3 mmol/L 3.3-5.1 [facility] Screening total cholesterol/ high density lipoprotein (HDL) cholesterol ratioOrdered By: [facility] 10-30-2024 Cholesterol.total/Maria C sterol in HDL [Mass ratio] 3.34 {ratio} [facility] Serum creatinine measurement (mass/volume)Ordered By: [facility] 10-30-2024 Creatinine [Mass/Vol] 0.69 mg/dL Low 0.70-1.20 [facility] Serum globulin measurementOr dered By: [facility] on 10-30-2024 Globulin (S) [Mass/Vol] 2.9 g/dL 2.2-4.2 [facility] Serum glucose measurement (m ass/volume)Ordered By: [facility] 10-30-2024 Glucose [Mass/Vol] 99 mg/dL 70-99 [facility] Serum or plasma alanine neri otransferase (ALT) measurementOrdered By: [facility] 10-30-2024 ALT [Catalytic activity/Vol] 21 U/L <35 [facility] Serum or plasma albumin neelam urement (mass/volume)Ordered By: [facility] 10-30-2024 Albumin [Mass/Vol] 4.4 g/dL 3.4-4.8 [facility] Serum or plasma albumin/glob ulin mass ratioOrdered By: [facility] 10-30-2024 Albumin/Globulin [Mass ratio] 1.5 {ratio} 0.9-2.4 [facility] Serum or plasma alkaline jose ramon sphatase measurementOrdered By: [facility] 10-30-2024 ALP [Catalytic activity/Vol] 68 U/L 35-104 [facility] Serum or plasma calcium neelam urement (mass/volume)Ordered By: Junaid Lott on 10-30-2024 Calcium [Mass/Vol] 9.5 mg/dL 7.6-11.0 [facility] Serum or plasma cholesterol in HDL measurement (mass/volume)Ordered By: Junaid Lott on 10-30-2024 Cholesterol in HDL [Mass/Vol] 75 mg/dL >40 [facility] Comment on above: National Cholesterol Education Program (NCEP) guidelines:<40 mg/dL: Low HDL-cholesterol (major risk factor for CHD)>= 60 mg/dL: High HDL-cholesterol (negative risk factor for CHD)HDL-cholesterol is affected by a number of factors, e.g. smoking, exercise, hormones, sex and age. Serum or plasma cholesterol measurement (mass/volume)Ordered By: Junaid Lott on 10-30-2024 Cholesterol [Mass/Vol] 251 mg/dL High <201 [facility] Comment on above: Cholesterol level, D esirable <200 mg/dLBorderline high cholesterol 200-239 mg/dLHigh cholesterol >=240 mg/dLRecommendations of the NCEP Adult Treatment Panel for the following risk-cutoff thresholds for the [place] population. Serum or plasma urea nitroge n measurement (mass/volume)Ordered By: Junaid Lott on 10-30-2024 Urea nitrogen [Mass/Vol] 13 mg/dL 4-19 [facility] Sodium levelOrdered By: Kasie Lott on 10-30-2024 Sodium [Moles/Vol] 140 mmol/L 133-145 [facility] Total proteinOrdered By: Bobby Lott on 10-30-2024 Protein [Mass/Vol] 7.3 g/dL 5.9-8.4 [facility] Triglycerides measurementOrd ered By: Junaid Lott 10-30-2024 Triglyceride [Mass/Vol] 106 mg/dL <199 [facility] Comment on above: The drugs N-Acetylcy steine and Metamizole may falsely depress this assay. Normal range: <150 mg/dLBorderline High: 150-199 mg/dLHigh: 200-499 mg/dLVery High: >500 mg/dL [facility] 10-14-2024 CNOV Office Visit (OBGYWM) TAMIKO SHEARER ([id number]) 1960 F Date Time Provider Department 10/14/24 11:30 AM JOLEEN REICH OBGYWM During your visit today, we recorded the following information about you: Blood pressure Weight Height 122/74 82.6 kg 1.646 m Joleen Reich APRN.[facility] 10/14/2024 11:05 AM Signed Patient declined tour operatorRonald Morrison is a 64 year old who presents for an annual gynecologic exam without complaints. Postmenopausal: Postmenopausal: Yes since age 57. Last menses 2016. HRT use: No. Last Pap: 10/13/23 normal HPV: 10/13/23 negative History of abnormal pap: No Last mammogram: 2024 today History of abnormal mammogram: No Sexually active: Yes OB History Gravida3 Para3 Term3 Preterm0 AB0 Living3 SAB0 IAB0 Ectopic0 Multiple0 Live Births0 Comment: x 3 FAMILY HISTORY Problem Relation Age of Onset Breast Cancer Mother 60 Heart Mother High Cholesterol/[place] Hypertension Mother Prostate Cancer Father Heart Father High Cholesterol Coronary Artery Disease Father Bypass surgery Heart Brother heart surgery 2010 No Known Problems Daughter No Known Problems Son No Known Problems Son SOCIAL HISTORY Social History Tobacco Use Smoking status: Never Smokeless tobacco: Never Vaping Use Vaping status: Never Used Substance Use Topics Alcohol use: No Drug use: No REVIEW OF SYSTEMS Abdomen: No abdominal pain, nausea, vomiting, diarrhea, or constipation. No bloating, early satiety, indigestion, or increased flatulence. Bladder: No dysuria, gross hematuria, urinary frequency, urinary urgency, or incontinence Breast: No breast lumps, nipple d/c, overlying skin changes, redness or skin retraction Allergies and current medication updated:Yes SENSITIVE EXAM: The sensitive examination was discussed with the Patient or Patient's Authorized System Operator. As applicable, any other physician, advance practice provider, medical student, or other health professional student that will be observing or involved in the sensitive examination for educational or training purposes was discussed with the Patient or Authorized System Operator. The Patient or Authorized System Operator has agreed to proceed with the sensitive examination. (Sensitive examination includes inspection and/or palpation of the breasts, pelvis, prostate and anorectal regions). EXAM: BP 122/74 Ht 5' 4.803 (1.65m) Wt 182 lb (82.6kg) LMP 02/28/2019 BMI 30.47 kg/(m2). GENERAL: pleasant, female in no apparent distress HEENT: Normocephalic, atraumatic, mucus membranes moist, and no lesions DERMATOLOGY: Normal, without lesions, non-icteric, and non-hirsute BREAST: soft, non-tender, symmetric, no dominant mass, normal nipple-areolar complex, no lymphadenopathy, and no nipple discharge CHEST: Normal inspiratory effort ABDOMEN: soft, non-tender, and no masses PELVIC: external genitalia normal, normal Bartholin's glands, urethra, [place]'s glands, no vulvar lesions, no cervical lesions, physiologic discharge present, normal appearing perineal body and perianal region, atrophic changes BIMANUAL: uterus normal size, shape and consistency, no adnexal masses, and non-tender RECTOVAGINAL: deferred. NEURO: alert and oriented x3,exam grossly non-focal EXTREMITIES: normal ASSESSMENT/PLAN: 1) Health maintenance: Pap/HPV up to date. Mammogram ordered Mammogram up to date Nutrition, exercise and routine health maintenance exams reviewed. Calcium/Vitamin D supplementation information provided. Colon cancer screening: up to date with screening 2) Follow up one year or sooner as needed Joleen Reich APRN.MARCE Referring Provider: JOLEEN REICH [[id number]] Allergies As of Date: 10/14/2024 Noted Allergy Reaction PINE NUT 05/12/2020 4 - Hives 11 - Vomiting MACROBID (NITROFURANTOIN MONOHYD/*09/06/2005 4 - Hives Date Reviewed: 10/14/2024 Reviewed by: Joleen Reich APRN.TELEGRAPH OFFICE MANAGER - Fully Assessed Reason for Visit: Well Woman [[id number]] Primary Visit Diagnosis:Encounter for gynecological examination (general) (routine) without abnormal findings [Z01.419] Other Visit Diagnosis:Encounter for screening mammogram for breast cancer [Z12.31] Order(s):ASAEL SCREENING W LAZARA [[id number]] Order #: [id number] FUTURE Prescriptions as of 10/14/2024 - fluocinolone (SYNALAR) 0.025 % ointment Apply small amount bid X 2 weeks, daily X 2 weeks then prn - MULTIVITAMIN TAB Take one(1) tablet daily. 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 Follow-up and Disposition History for Encounter Date Provider Department Center 10/14/2024 [id number] REICH Encounter Status (more content not included)... Normal [facility] DBT Breast - bilateral scree ningon 10-14-2024 IMPRESSION: There is no mammographic evidence of malignancy in either breast. Routine screening mammogram is recommended. Annual mammogram will be due in 1 year. BI-RADS Category 1: Negative RISK: Based on the Tyrer-Cuzick (TC) risk assessment model, this patient has a 10.6% lifetime risk of developing breast cancer, meaning they are at average risk for developing breast cancer. However, this is only an estimate based on available history provided on the patient's questionnaire. We encourage all patients to talk with their providers about these results, further recommendations for managing breast health, and appropriate supplemental screening options if the patient has dense breast tissue. Interpreting Radiologist: Isidro Chaudhari M.D. Electronically signed on: 10/14/2024 Occupational Therapist: EDITH Transcribe Date/Time: Oct 14 2024 10:07A Dictated by: ISIDRO CHAUDHARI MD This examination was interpreted and the report reviewed and electronically signed by: ISIDRO CHAUDHARI MD on Oct 14 2024 12:27PM [facility] DIVISION OF RADIOLOGY * * *Final Report* * * DATE OF EXAM: Oct 14 2024 10:18AM [facility] 0582 - ASAEL SCREENING W LAZARA / PROCEDURE REASON: Encounter for gynecological examination (general) (routine) without abnormal fin * * * * Physician Interpretation * * * * RESULT: [facility] [address] [place] [address] #[id number] - [facility] SCREENING W LAZARA HISTORY: 64 year-old patient seen for screening. Patient is asymptomatic in both breasts. Patient states no personal history of breast cancer. The patient has a family history of breast cancer. COMPARISON STUDIES: The present examination has been compared to prior imaging studies dated 07/26/2021 (mammogram), 10/07/2022 (mammogram) and 10/13/2023 (mammogram). MAMMOGRAM TECHNIQUE: The study was acquired using full field digital technology and interpreted from soft copy. Digital Breast Tomosynthesis (DBT) images were obtained and used to assist in the interpretation of this examination. MAMMOGRAM FINDINGS: There are scattered areas of fibroglandular density. No suspicious masses, calcifications or other abnormalities are seen in either breast. There are no significant interval changes. DIVISION OF RADIOLOGY Provider, [facility] - 10/14/2024 * * *Final Report* * * DATE OF EXAM: Oct 14 2024 10:18AM [facility] 0582 - [facility] SCREENING W LAZARA / PROCEDURE REASON: Encounter for gynecological examination (general) (routine) without abnormal fin * * * * Physician Interpretation * * * * RESULT: [facility] [address] [place] [id number] #[id number] - ASAEL SCREENING W LAZARA HISTORY: 64 year-old patient seen for screening. Patient is asymptomatic in both breasts. Patient states no personal history of breast cancer. The patient has a family history of breast cancer. COMPARISON STUDIES: The present examination has been compared to prior imaging studies dated 07/26/2021 (mammogram), 10/07/2022 (mammogram) and 10/13/2023 (mammogram). MAMMOGRAM TECHNIQUE: The study was acquired using full field digital technology and interpreted from soft copy. Digital Breast Tomosynthesis (DBT) images were obtained and used to assist in the interpretation of this examination. MAMMOGRAM FINDINGS: There are scattered areas of fibroglandular density. No suspicious masses, calcifications or other abnormalities are seen in either breast. There are no significant interval changes. IMPRESSION IMPRESSION: There is no mammographic evidence of malignancy in either breast. Routine screening mammogram is recommended. Annual mammogram will be due in 1 year. BI-RADS Category 1: Negative RISK: Based on the Tyrer-Cuzick (TC) risk assessment model, this patient has a 10.6% lifetime risk of developing breast cancer, meaning they are at average risk for developing breast cancer. However, this is only an estimate based on available history provided on the patient's questionnaire. We encourage all patients to talk with their providers about these results, further recommendations for managing breast health, and appropriate supplemental screening options if the patient has dense breast tissue. Interpreting Radiologist: Isidro Chaudhari M.D. Electronically signed on: 10/14/2024 Occupational Therapist: EDITH Transcribe Date/Time: Oct 14 2024 10:07A Dictated by: ISIDRO CHAUDHARI MD This examination was interpreted and the report reviewed and electronically signed by: ISIDRO CHAUDHARI MD on Oct 14 2024 12:27PM [facility] Radiology Study observation (narrative) [facility] DBT Breast - bilateral scree ningOrdered By: [facility] Provider on 10-14-2024 [facility] ASAEL SCREENING W TOMOon 10-14 ASAEL SCREENING W LAZARA * * *Final Report* * * DATE OF EXAM: Oct 14 2024 10:18AM [facility] 0582 - ASAEL SCREENING W LAZARA / PROCEDURE REASON: Encounter for gynecological examination (general) (routine) without abnormal fin * * * * Physician Interpretation * * * * RESULT: [facility] [address] [place] [address] #[id number] - ASAEL SCREENING W LAZARA HISTORY: 64 year-old patient seen for screening. Patient is asymptomatic in both breasts. Patient states no personal history of breast cancer. The patient has a family history of breast cancer. COMPARISON STUDIES: The present examination has been compared to prior imaging studies dated 07/26/2021 (mammogram), 10/07/2022 (mammogram) and 10/13/2023 (mammogram). MAMMOGRAM TECHNIQUE: The study was acquired using full field digital technology and interpreted from soft copy. Digital Breast Tomosynthesis (DBT) images were obtained and used to assist in the interpretation of this examination. MAMMOGRAM FINDINGS: There are scattered areas of fibroglandular density. No suspicious masses, calcifications or other abnormalities are seen in either breast. There are no significant interval changes. IMPRESSION: There is no mammographic evidence of malignancy in either breast. Routine screening mammogram is recommended. Annual mammogram will be due in 1 year. BI-RADS Category 1: Negative RISK: Based on the Tyrer-Cuzick (TC) risk assessment model, this patient has a 10.6% lifetime risk of developing breast cancer, meaning they are at average risk for developing breast cancer. However, this is only an estimate based on available history provided on the patient's questionnaire. We encourage all patients to talk with their providers about these results, further recommendations for managing breast health, and appropriate supplemental screening options if the patient has dense breast tissue. Interpreting Radiologist: Isidro Chaudhari M.D. Electronically signed on: 10/14/2024 Occupational Therapist: EDITH Transcribe Date/Time: Oct 14 2024 10:07A Dictated by: ISIDRO CHAUDHARI MD This examination was interpreted and the report reviewed and electronically signed by: ISIDRO CHAUDHARI MD on Oct 14 2024 12:27PM EST [id number] CN Normal [facility] Basophil percentageOrdered B y: Lucie Kimberly on 10-02-2023 Chloride [Moles/Vol] 104 mmol/L 98-107 [facility] Cholesterol [Mass/Vol] 249 mg/dL <200 [facility] Comment on above: <200 mg/dL Desirable 200-240 mg/dL Borderline >240 mg/dL High Risk Glucose [Mass/Vol] 101 mg/dL 74-106 [facility] Comment on above: Fasting Glucose resu lt from 100 to 125 mg/dL suggests IMPAIRED HOMEOSTASIS per A.D.A. criteria. Hemoglobin (Bld) [Mass/Vol] 14.1 g/dL 12.0-15.0 [facility] Potassium [Moles/Vol] 4.2 mmol/L 3.5-5.1 [facility] Sodium [Moles/Vol] 139 mmol/L 136-145 [facility] Triglyceride [Mass/Vol] 70 mg/dL <199 [facility] Comment on above: The drugs N-Acetylcy steine and Metamizole may falsely depress this assay.Serum Triglycerides Reference Interval Normal <150 mg/dL Borderline high 150 - 199 mg/dL High 200 - 499 mg/dL Very High > or = 500 mg/dL WBC (Bld) [#/Vol] 5.0 10*3/uL 4.4-11.0 [facility] Determination of erythrocyte mean corpuscular volume (MCV)Ordered By: Lucie Harris on 10-02-2023 MCV (RBC) [Entitic vol] 89.5 fL 81-99 [facility] Erythrocyte distribution wid th ratioOrdered By: [facility] on 10-02-2023 Erythrocyte distribution width (RBC) [Ratio] 12.3 % 11.6-14.6 [facility] Erythrocyte distribution wid th standard deviationOrdered By: [facility] on 10-02-2023 Erythrocyte distribution width (RBC) [Entitic vol] 40.2 fL 35.1-43.9 [facility] Hematocrit Auto (Bld) [Volum e fraction]Ordered By: [facility] on 10-02-2023 Hematocrit (Bld) [Volume fraction] 42.8 % 37-47 [facility] Laboratory - Chemistry and C hemistry - challengeOrdered By: [facility] Kimberly on 10-02-2023 Cholesterol in HDL [Mass/Vol] 83 mg/dL >40 [facility] Comment on above: The drugs N-Acetylcy steine and Metamizole may falsely depress this assay. Reference Range HDL <40 mg/dL Low HDL Cholesterol HDL >or= 60 mg/dL High HDL Cholesterol Cholesterol in LDL [Mass/Vol] 152 mg/dL 0-130 [facility] CO2 [Moles/Vol] 29.0 mmol/L 21.0-32.0 [facility] Urea nitrogen/Creatinine [Mass ratio] 21.7 mg/mg 10-20 [facility] - Hematology and Cell countsOrdered By: Lucie Kimberly on 10-02-2023 MCH (RBC) [Entitic mass] 29.5 pg 27.0-32.0 [facility] MCHC (RBC) [Mass/Vol] 32.9 g/dL 32-36 [facility] Platelet mean volume (Bld) [Entitic vol] 9.9 fL 6.2-12.0 [facility] Platelets (Bld) [#/Vol] 202 10*3/uL 150-450 [facility] No Panel InformationOrdered By: Lucie Harris on 10-02-2023 Estimated GFR (MDRD) Amer 103 mL/min >60 [facility] Comment on above: GFR Calc Estimated GFR (MDRD) Non-Af Amer 85 mL/min >60 [facility] Comment on above: Non- GFR Calc VLDL Cholesterol 14 mg/dL 5-40 [facility] RBC Auto (Bld) [#/Vol]Ordere d By: Lucie Harris on 10-02-2023 RBC (Bld) [#/Vol] 4.78 10*6/uL 4.2-5.4 [facility] Serum or plasma calcium neelam urement (mass/volume)Ordered By: Lucie Harris on 10-02-2023 Calcium [Mass/Vol] 9.3 mg/dL 8.5-10.1 [facility] Serum or plasma creatinine m easurement (mass/volume)Ordered By: Lucie Harris on 10-02-2023 Creatinine [Mass/Vol] 0.74 mg/dL 0.55-1.02 [facility] Comment on above: The validity of the calculated GFR & GFRAA in patients over 70 years has not been determined. Clinical correlation is essential. Serum or plasma urea nitroge n measurement (mass/volume)Ordered By: Lucie Harris on 10-02-2023 Urea nitrogen [Mass/Vol] 16 mg/dL 7-18 [facility] Thin prep Papanicolaou smear with manual screeningOrdered By: Lucie Harris on 10-02-2023 Thin prep Papanicolaou smear with manual screening 6 5-15 [facility] Basophil percentageOrdered B y: Archana Hernandez on 06-21-2022 Bilirubin [Mass/Vol] 0.60 mg/dL 0.20-1.[address] [facility] Comment on above: For patients on eltr ombopag therapy, use of Dimension [place] TBIL is not recommended. Chloride [Moles/Vol] 106 mmol/L 98-107 [facility] Cholesterol [Mass/Vol] 214 mg/dL <200 [facility] Comment on above: <200 mg/dL Desirable 200-240 mg/dL Borderline >240 mg/dL High Risk Glucose [Mass/Vol] 91 mg/dL 74-106 [facility] Potassium [Moles/Vol] 4.2 mmol/L 3.5-5.1 [facility] Protein [Mass/Vol] 7.4 g/dL 6.4-8.2 [facility] Sodium [Moles/Vol] 141 mmol/L 136-145 [facility] Triglyceride [Mass/Vol] 78 mg/dL <199 [facility] Comment on above: The drugs N-Acetylcy steine and Metamizole may falsely depress this assay.Serum Triglycerides Reference Interval Normal <150 mg/dL Borderline high 150 - 199 mg/dL High 200 - 499 mg/dL Very High > or = 500 mg/dL WBC (Bld) [#/Vol] 4.9 10*3/uL 4.4-11.0 [facility] Blood erythrocytes count (nu mber/volume)Ordered By: Archana Hernandez on 06-21-2022 RBC (Bld) [#/Vol] 5.01 10*6/uL 4.2-5.4 [facility] Blood hemoglobin measurement (mass/volume)Ordered By: Archana Hernandez on 06-21-2022 Hemoglobin (Bld) [Mass/Vol] 14.5 g/dL 12.0-15.0 [facility] Blood platelet mean volumeOr dered By: Archana Hernandez on 06-21-2022 Platelet mean volume (Bld) [Entitic vol] 10.4 fL 6.2-12.0 [facility] Determination of erythrocyte mean corpuscular volume (MCV)Ordered By: Archana Hernandez on 06-21-2022 MCV (RBC) [Entitic vol] 87.8 fL 81-99 [facility] Hematocrit Auto (Bld) [Volum e fraction]Ordered By: Archana Hernandez on 06-21-2022 Hematocrit (Bld) [Volume fraction] 44.0 % 37-47 [facility] - Chemistry and C hemistry - challengeOrdered By: Archana Hernandez on 06-21-2022 ALP [Catalytic activity/Vol] 71 U/L 45-117 [facility] ALT [Catalytic activity/Vol] 26 U/L 13-56 [facility] CO2 [Moles/Vol] 31.0 mmol/L 21.0-32.0 [facility] Globulin (S) [Mass/Vol] 3.4 g/dL 2.2-4.2 [facility] Urea nitrogen/Creatinine [Mass ratio] 15.8 mg/mg 10-20 [facility] - Hematology and Cell countsOrdered By: Archana Hernandez on 06-21-2022 Erythrocyte distribution width (RBC) [Entitic vol] 39.8 fL 35.1-43.9 [facility] Erythrocyte distribution width (RBC) [Ratio] 12.3 % 11.6-14.6 [facility] MCH (RBC) [Entitic mass] 28.9 pg 27.0-32.0 [facility] MCHC Auto (RBC) [Mass/Vol]Or dered By: Archana Hernandez on 06-21-2022 MCHC (RBC) [Mass/Vol] 33.0 g/dL 32-36 [facility] No Panel InformationOrdered By: Archana Hernandez on 06-21-2022 Estimated GFR (MDRD) Amer 110 mL/min >60 [facility] Comment on above: GFR Calc Estimated GFR (MDRD) Non-Af Amer 91 mL/min >60 [facility] Comment on above: Non- GFR Calc Platelets bldOrdered By: Harry Hernandez on 06-21-2022 Platelets (Bld) [#/Vol] 211 10*3/uL 150-450 [facility] Serum or plasma albumin neelam urement (mass/volume)Ordered By: Archana Hernandez on 06-21-2022 Albumin [Mass/Vol] 4.0 g/dL 3.2-5.0 [facility] Serum or plasma albumin/glob ulin mass ratioOrdered By: Archana Hernandez on 06-21-2022 Albumin/Globulin [Mass ratio] 1.2 {ratio} 0.9-2.4 [facility] Serum or plasma calcium neelam urement (mass/volume)Ordered By: Archana Hernandez on 06-21-2022 Calcium [Mass/Vol] 9.3 mg/dL 8.5-10.1 [facility] Serum or plasma cholesterol in HDL measurement (mass/volume)Ordered By: Archana Hernandez on 06-21-2022 Cholesterol in HDL [Mass/Vol] 77 mg/dL >40 [facility] Comment on above: The drugs N-Acetylcy steine and Metamizole may falsely depress this assay. Reference Range HDL <40 mg/dL Low HDL Cholesterol HDL >or= 60 mg/dL High HDL Cholesterol Serum or plasma cholesterol in VLDL measurement (mass/volume)Ordered By: Archana Hernandez on 06-21-2022 Cholesterol in VLDL [Mass/Vol] 16 mg/dL 5-40 [facility] Serum or plasma creatinine m easurement (mass/volume)Ordered By: Archana Hernandez on 06-21-2022 Creatinine [Mass/Vol] 0.70 mg/dL 0.55-1.02 [facility] Comment on above: The validity of the calculated GFR & GFRAA in patients over 70 years has not been determined. Clinical correlation is essential. Serum or plasma low density lipoprotein (LDL) cholesterol measurement (mass/volume)Ordered By: Archana Hernandez on 06-21-2022 Cholesterol in LDL [Mass/Vol] 121 mg/dL 0-130 [facility] Serum or plasma urea nitroge n measurement (mass/volume)Ordered By: Archana Hernandez on 06-21-2022 Urea nitrogen [Mass/Vol] 11 mg/dL 7-18 [facility] Thin prep Papanicolaou smear with manual screeningOrdered By: Archana Hernandez on 06-21-2022 Thin prep Papanicolaou smear with manual screening 17 U/L 15-37 [facility] Thin prep Papanicolaou smear with manual screening 4 5-15 [facility] CORONAVIRUS PCR - [facility] 02-10-2021 SARS-CoV-2 (COVID-19) RNA SHAN+probe Ql (Unsp spec) Negative Normal NORMAL: NEGATIVE [facility] Comment on above: Performed By: #### [id number] #### [facility],[address] [place] [id number] SEND TO ? YES Normal [facility] Comment on above: Result Comment: BABS MULLEN FAXED TO INFECTION CONTROL. SARS-CoV-2 THIS TEST IS BEING USED UNDER THE FDA EUA PROCEDURE. THIS ASSAY HAS BEEN VALIDATED IN THE [facility] FOR USE WITH NASOPHARYNGEAL SPECIMENS IN [facility]. [facility]AT[facility] TEST RESULTS SHOULD ALWAYS BE CONSIDERED IN THE CONTEXT OF CLINICAL OBSERVATIONS AND EPIDEMIOLOGICAL DATA IN MAKING FINAL DIAGNOSIS AND PATIENT MANAGEMENT DECISIONS. PATIENT MANAGEMENT SHOULD FOLLOW CURRENT CDC GUIDELINES. A POSITIVE TEST RESULT FOR COVID-19 INDICATES THAT RNA FROM SARS-CoV-2 WAS DETECTED, AND THE PATIENT IS INFECTED WITH THE VIRUS AND PRESUMED TO BE CONTAGIOUS. A NEGATIVE TEST RESULT FOR THIS TEST MEANS THAT SARS-CoV-2 RNA WAS NOT PRESENT IN THE SPECIMEN ABOVE THE LIMIT OF DETECTION. HOWEVER, A NEGATVIE RESULT DOES NOT RULE OUT COVID-19 AND SHOULD NOT BE USED THE SOLE BASIS FOR TREATMENT OR PATIENT MANAGEMENT DECISIONS. A NEGATIVE RESULT DOES NOT EXCLUDE THE POSSIBILITY OF COVID-19. WHEN DIAGNOSTIC TESTING IS NEGATIVE, THE POSSIBLILTY OF A FALSE NEGATIVE RESULT SHOULD BE CONSIDERED IN THE CONTEXT OF A PATIENT'S RECENT EXPOSURES AND THE PRESENCE OF CLINICAL SIGNS AND SYMPTOMS CONSISTENT WITH COVID-19. THE POSSIBILITY OF A FALSE NEGATIVE RESULT SHOULD ESPECIALLY BE CONSIDERED IF THE PATIENT'S RECENT EXPOSURES OR CLINICAL PRESENTATION INDICATE THAT COVID-19 IS LIKELY, AND DIAGNOSTIC TESTS FOR OTHER CAUSES OF ILLNESS (e.g., OTHER RESPIRATORY ILLNESS) ARE NEGATIVE. IF COVID-19 IS STILL SUSPECTED BASED ON EXPOSURE HISTORY TOGETHER WITH OTHER CLINICAL FINDINGS, RE-TESTED SHOULD BE CONSIDERED BY HEALTHCARE PROVIDERS IN CONSULTATION WITH PUBLIC HEALTH AUTHORITIES. Performed By: #### 2 [id number] #### [facility],[address] [place] [id number] EMERGENCY REPORTon 0 EMERGENCY REPORT [facility] EMERGENCY ROOM REPORT NAME ACCOUNT SEX AGE ADMIT DISCHARGE PT MED. RECORD# NUMBER DATE DATE TYPE JEANNE [id number] F 60 05/30/20 05/30/20 3 TAMIKO [id number] ROOM: ER DATE OF : 1960 DICTATING PHYSICIAN: Jaxson Escudero HISTORY OF PRESENT ILLNESS: She comes in stating that she is not feeling well. She had COVID about 2 months ago. She was admitted to the hospital on May 15 for pneumonia. Her blood pressure has been elevated and she has not felt well. She complains of some shortness of breath like she cannot take a deep breath. She has upper abdominal epigastric pain. She feels fatigued. She presents to the emergency department with her . PAST MEDICAL HISTORY: Uterine prolapse. SOCIAL HISTORY: She does not smoke or drink. REVIEW OF SYSTEMS: Ten systems are reviewed and negative except as mentioned above. PHYSICAL EXAMINATION: The patient is afebrile. Blood pressure 187/90, pulse 100, respiratory rate 16, pulse ox 94% on room air. Head is normocephalic, atraumatic. Eyes: Pupils are equal, round and reactive to light. Extraocular muscles are intact. Nares are patent. Throat has adequate moisture. Uvula is midline. Neck is supple. No petechiae or rash. Heart: No murmur. S1 equals S2. No S3 or S4 appreciated. Lungs are clear to auscultation bilaterally. No rales, rhonchi or retractions. Abdomen is soft and nontender, nondistended. Skin is warm and dry. DIAGNOSTIC DATA: The patient has right bundle branch block with rate of 82, normal axis. She had a right bundle branch block the last time she was admitted. WBC 6000, H&H 15 and 44, platelets 226,000. Chemistries were unremarkable. Lactate was normal. D-dimer was normal. Troponin was normal. We did do a CT which was unremarkable. BMP was normal. PLAN/DISPOSITION: She was given a breathing treatment and she said that it did not really help that much. She is diagnosed with epigastric chest discomfort, cause unclear. She will be discharged to home and told to return if increasing pain, problems or concerns. Dictated By: Jaxson Escudero DO Page 1 of 2 JEANNE, Emergency Room Report TAMIKO SIEGELBRATAMIKO SANDERSON : 1960 05/30/20 14:42 JOB #: [id number] Transcribed By: sher 05/31/20 10:05 Electronically signed by: CHINMAY Escudero D.O. 06/04/20 19:50 Page 2 of 2 JEANNE, Emergency Room Report TAMIKO Jerson [facility] CBC + DIFFon 05-30-2020 Baso # 0.10 x10EE3/UL Normal 0.00 - 0.10 [facility] Comment on above: Performed By: #### 2 [id number] #### [facility],[address] [place], [place] [address] Basophils/100 WBC (Bld) 0.8 % Normal 0.0 - 2.0 [facility] Comment on above: Performed By: #### 2 [id number] #### [facility],[address] [place] [address] CBC + DIFF Normal [facility] Comment on above: Result Comment: CBC- COMPLETE BLOOD COUNT Performed By: #### 2 [id number] #### [place] [address] EO # 0.10 x10EE3/UL Normal 0.00 - 0.50 [facility] Comment on above: Performed By: #### 2 [id number] #### [facility],[address] [place] [address] Eosinophils/100 WBC (Bld) 1.2 % Normal 0.0 - 7.0 [facility] Comment on above: Performed By: #### 2 [id number] #### [facility],[address] [place] [address] Erythrocyte distribution width (RBC) [Ratio] 13.9 % Normal 12.0 - 15.6 [facility] Comment on above: Performed By: #### 2 [id number] #### [facility],[address] [place] [address] Hematocrit (Bld) [Volume fraction] 44.8 % Normal 34.0 - 46.0 [facility] Comment on above: Performed By: #### 2 [id number] #### [facility],[address] [place] [address] Hemoglobin (Bld) [Mass/Vol] 15.4 g/dL Normal 12.0 - 16.0 [facility] Comment on above: Performed By: #### 2 [id number] #### [facility],[address] [place] [address] Lymph # 2.30 x10EE3/UL Normal 0.80 - 2.80 [facility] Comment on above: Performed By: #### 2 [id number] #### [facility],[address] [place] [address] Lymphocytes/100 WBC (Bld) 35.1 % Normal 20.0 - 45.0 [facility] Comment on above: Performed By: #### 2 [id number] #### [facility],[address] [place] [address] MANUAL DIFF N/A Normal [facility] Comment on above: Performed By: #### 2 [id number] #### [facility],[address] [place] [address] MCH (RBC) [Entitic mass] 30 pg Normal 27 - 33 [facility] Comment on above: Performed By: #### 2 85665 #### [facility],[address] [place] [address] MCHC 34 X10 3 Normal 32 - 36 [facility] Comment on above: Performed By: #### 2 05810 #### [facility],[address] [place], [place] [id number] MCV (RBC) [Entitic vol] 87 fL Normal 80 - 99 [facility] Comment on above: Performed By: #### 2 32241 #### [facility],[address] [place] [address] Barbour # 0.40 x10EE3/UL Normal 0.20 - 1.00 [facility] Comment on above: Performed By: #### 2 17382 #### [facility],[address] [place], [place] [id number] MONOS % 5.9 % Normal 0.0 - 10.0 [facility] Comment on above: Performed By: #### 2 42825 #### [facility],[address] [place] [address] Morphology Pasquale (Bld) [Interp] N/A Normal [facility] Comment on above: Result Comment: {CD] Performed By: #### 2 46958 #### [facility],[address] [place] [address] 43226 Neut # 3.70 x10EE3/UL Normal 1.50 - 7.10 [facility] Comment on above: Performed By: #### 2 09793 #### [facility],[address] [place] [address] 39208 Neutrophils/100 WBC (Bld) 57.0 % Normal 46.0 - 76.0 [facility] Comment on above: Performed By: #### 2 18737 #### [facility],[address] [place] [address] 29332 PLATELET 226 x10EE3/UL Normal 150 - 450 [facility] Comment on above: Performed By: #### 2 53532 #### [facility],[address] [place] [address] 69225 Platelet mean volume (Bld) [Entitic vol] 7.8 fL Normal 6.6 - 10.5 [facility] Comment on above: Result Comment: AUTO MATED DIFFERENTIAL Performed By: #### 2 58676 #### [facility],[address] [place] [address] 15043 RBC 5.13 x 10EE6/UL Normal 4.10 - 5.30 [facility] Comment on above: Performed By: #### 2 51917 #### [facility],[address] [place] [address] 34458 WBC 6.6 x 10EE3/UL Normal 4.5 - 10.8 [facility] Comment on above: Performed By: #### 2 44842 #### [facility],[address] [place] [address]2035 CHEST 2 VIEWSon 05-30-2020 CHEST 2 VIEWS [place] [address] Patient: TAMIKO SHEARER Phone#: : 1960 Age: 60 Gender: F Pt. Type: ER Account: [id number] Location: [facility] Ordering: JAXSON ESCUDERO Exam Date: 05/30/2020/10:31 Family Phys: KUNAL CADENA Charge Code: 470913 Physician: Bond Order #: [id number] DLP Dose#: PROCEDURE: X-RAY CHEST 2 VIEWS COMPARISON: [facility], XR, CHEST 1 VIEW, 04/15/2020, 15:27. INDICATIONS: Cough. FINDINGS: LUNGS: Interval resolution of the infiltrate previously seen in the right lung base.. No significant pulmonary parenchymal abnormalities. VASCULATURE: Normal. Unremarkable pulmonary vasculature. CARDIAC: Normal. No cardiac silhouette abnormality or cardiomegaly. MEDIASTINUM: Normal. No visible mass or adenopathy. PLEURA: Normal. No effusion or pleural thickening. BONES: Degenerative changes of the spine. OTHER: Negative. CONCLUSION: 1. Interval resolution of the previously visualized infiltrate. No new focal pulmonary parenchymal abnormality. Dictated by: Petra Turner MD on 05/30/2020 at 13:49 Approved by: Petra Turner MD on 05/30/2020 at 13:51 Normal [facility] CMP with eGFRon 05-30-2020 AGE 60 years Normal [facility] Comment on above: Performed By: #### 2 10704 ####[facility],[address] [place], [place] [id number] Albumin [Mass/Vol] 4.1 g/dL Normal 3.4 - 5.0 [facility] Comment on above: Performed By: #### 2 64236 ####[facility],[address] [place], [place] [id number] Albumin/Globulin [Mass ratio] 1.1 {ratio} Normal 0.9 - 1.6 [facility] Comment on above: Performed By: #### 2 52144 ####[facility],[address] [place], [place] [id number] ALK PHOS 75 U/L Normal 46 - 116 [facility] Comment on above: Performed By: #### 2 70122 ####[facility],[address] [place], [place] [id number] ALT [Catalytic activity/Vol] 24 U/L Normal 14 - 59 [facility] Comment on above: Performed By: #### 2 93709 ####[facility],[address] [place] [address] Anion gap [Moles/Vol] 12 mmol/L Normal 10 - 20 [facility] Comment on above: Performed By: #### 2 20335 ####[facility],[address] [place] [address] AST [Catalytic activity/Vol] 11 U/L Low 13 - 39 [facility] Comment on above: Performed By: #### 2 41541 ####[facility],[address] [place] [address] B/C RATIO 16 ratio Normal 0 - 30 [facility] Comment on above: Performed By: #### 2 25686 ####[facility],[address] [place] [address] Bilirubin [Mass/Vol] 0.4 mg/dL Normal 0.2 - 1.0 [facility] Comment on above: Performed By: #### 2 04087 ####[facility],[address] [place], [place] [id number] Calcium [Mass/Vol] 9.1 mg/dL Normal 8.5 - 10.1 [facility] Comment on above: Performed By: #### 2 68589 ####[facility],[address] [place], [place] [id number] Chloride [Moles/Vol] 101 mmol/L Normal 98 - 107 [facility] Comment on above: Performed By: #### 2 15098 ####[facility],[address] [place] [address] CMP with eGFR Normal [facility] Comment on above: Result Comment: COMP REHENSIVE METABOLIC PANEL Performed By: #### 2 67600 ####[facility],[address] [place] [address] CO2 [Moles/Vol] 29.3 mmol/L Normal 21.0 - 32.0 [facility] Comment on above: Performed By: #### 2 12089 ####[facility],[address] [place] [address] Creatinine [Mass/Vol] 0.7 mg/dL Normal 0.5 - 1.0 [facility] Comment on above: Performed By: #### 2 70238 ####[facility],[address] [place] [address] GFR/1.73 sq M.predicted among non-blacks MDRD (S/P/Bld) [Vol rate/Area] mL/min/{1.73_m2} Normal 60 - 999 [facility] Comment on above: Performed By: #### 2 06743 ####[facility],[address] [place] [address] Result Comment: ACCO RDING TO THE NATIONAL KIDNEY DISEASE EDUCATION PROGRAM(NKDE), A NORMAL eGFR IS A VALUE GREATER THAN OR EQUAL TO 60 ML/MIN/1.73 SQ METERS. CHRONIC KIDNEY DISEASE: <60mL/MIN/1.73 SQ METERS KIDNEY FAILURE: <15mL/MIN/1.73 SQ METERS THIS TEST SHOULD ONLY BE USED FOR PATIENTS 18 YEARS OF AGE AND OLDER. Globulin (S) [Mass/Vol] 3.9 g/dL High 1.5 - 3.8 [facility] Comment on above: Performed By: #### 2 47047 ####[facility],[address] [place] [address] Glucose [Mass/Vol] 118 mg/dL High 74 - 106 [facility] Comment on above: Performed By: #### 2 03104 ####[facility],[address],[place] [address] Potassium [Moles/Vol] 3.9 mmol/L Normal 3.5 - 5.1 [facility] Comment on above: Performed By: #### 2 68614 ####[facility],[address] [place] [address]1436 Protein [Mass/Vol] 8.0 g/dL Normal 6.4 - 8.2 [facility] Comment on above: Performed By: #### 2 95363 ####[facility],[address] [place] [address] 34017 Sodium [Moles/Vol] 138 mmol/L Normal 136 - 145 [facility] Comment on above: Performed By: #### 2 06007 ####[facility],[address] [place] [address] 49225 Urea nitrogen [Mass/Vol] 11 mg/dL Normal 7 - 18 [facility] Comment on above: Performed By: #### 2 48524 ####[facility],[address] [place] [address] CHEST (PE PROTOCOL)on CT CHEST (PE PROTOCOL) [place] [address] Patient: TAMIKO SHEARER Phone#: : 1960 Age: 60 Gender: F Pt. Type: ER Account: [id number] Location: 2 Ordering: JAXSON ESCUDERO Exam Date: 05/30/2020/11:51 Family Phys: KUNAL CADENA Charge Code: [id number] Physician: Bond Order #: [id number] DLP Dose#: PROCEDURE: CT CHEST WITH CONTRAST FOR PE COMPARISON: [facility], CT, CHEST PE W CON, 04/15/2020, 18:51. INDICATIONS: Dyspnea. TECHNIQUE: After obtaining the patient's consent, CT images were obtained with non-ionic intravenous contrast material. Multi-planar images were created to optimize visualization of vascular anatomy with MPR/MIPS and 3D imaging. All CT scans at this facility use dose modulation, iterative reconstruction, and/or weight based dosing when appropriate to reduce radiation dose to as low as reasonably achievable. IV CONTRAST: Omnipaque 350,74ml TOTAL DOSE: 4.9 CTDIvol(mGy) FINDINGS: VASCULATURE: Normal. No visible pulmonary arterial thrombus or attenuation. AORTA: No aortic aneurysm LUNGS: There are dependent changes. There has been interval resolution of the previously visualized infiltrates and consolidation. MICA: Normal. No mass or adenopathy. MEDIASTINUM: Normal. No mass or adenopathy. CARDIAC: Normal. No enlargement, pericardial thickening, or significant calcification. PLEURA: Normal. No mass or effusion. CHEST WALL: Normal. No mass or axillary adenopathy. LIMITED ABDOMEN: There is a small hiatal hernia. BONES: Normal. No bony lesion or fracture. OTHER: Negative. CONCLUSION: 1. No pulmonary embolism. No acute pulmonary parenchymal abnormality. [place] [address] Patient: TAMIKO SHEARER Phone#: : 1960 Age: 60 Gender: F Pt. Type: ER Account: [id number] Location: 052 Ordering: JAXSON ESCUDERO Exam Date: 05/30/2020/11:51 Family Phys: KUNAL CADENA Charge Code: [id number] Physician: Bond Order #: [id number] DLP Dose#: Dictated by: Petra Turner MD on 05/30/2020 at 12:10 Approved by: Petra Turner MD on 05/30/2020 at 12:16 Normal [facility] CULTURE BLOODon 05-30-2020 Microscopic examination of blood, culture CULTURE BLOOD CULTURE BLOOD SET: 1 of 2 24HOUR REPORT NEGATIVE 48HOUR REPORT NEGATIVE 72HOUR REPORT NEGATIVE M I C R O B I O L O G Y R E P O R T FINAL Antimicrobial Susceptibility and Organism Identification Report Specimen Number : [id number] Requested : 05/30/20 Specimen Source : BLOOD Collected : 05/30/20 09:31 [facility] : EMERGENCY ROOM Received : 05/30/20 09:31 Requesting Physician : KENA Patient/Specimen Tests and Comments Specimen Comments FINAL REPORT: NO GROWTH AT 5 DAYS Tech : Source : BLOOD ID # : [id number] FINAL Report Date : / / : Collected : 05/30/20 09:31 06/04/20JEET. 06/04/20.TARIQ.JOLENE MPLETE 1 of 2 NEGATIVE NEGATIVE NEGATIVE Normal [facility] Comment on above: Performed By: #### 2 19705 ####[facility],[address] [place], [place] [id number] Microscopic examination of blood, culture CULTURE BLOOD CULTURE BLOOD SET: 2 of 2 24HOUR REPORT NEGATIVE 48HOUR REPORT NEGATIVE 72HOUR REPORT NEGATIVE M I C R O B I O L O G Y R E P O R T FINAL Antimicrobial Susceptibility and Organism Identification Report Specimen Number : [id number] Requested : 05/30/20 Specimen Source : BLOOD Collected : 05/30/20 09:31 [facility] : EMERGENCY ROOM Received : 05/30/20 09:31 Requesting Physician : KENA Patient/Specimen Tests and Comments Specimen Comments FINAL REPORT: NO GROWTH AT 5 DAYS Tech : Source : BLOOD ID # : [id number] FINAL Report Date : / / : Collected : 05/30/20 09:31 06/04/20.1445.KLS. 06/04/20.1445.KLS.CO MPLETE 2 of 2 NEGATIVE NEGATIVE NEGATIVE Normal [facility] Comment on above: Performed By: #### 2 68174 ####[facility],[address] [place] [address] 76320 D-DIMER, QUANTITATIVEon 05-06 D-DIMER QUANT 176 ng/ml Normal 0 - 230 [facility] Comment on above: Performed By: #### 2 95864 #### [facility],[address] [place] [address] 75030 D-DIMER, QUANTITATIVE Normal [facility] Comment on above: Result Comment: ABBEY T D-DIMER Performed By: #### 2 53560 #### [facility],[address] [place] [address] 42785 LACTATEon 05-30-2020 Lactate [Moles/Vol] 0.6 mmol/L Normal 0.4 - 2.0 [facility] Comment on above: Performed By: #### 2 62283 ####[facility],[address] [place] [address] 50717 NT-proBNPon 05-30-2020 Natriuretic peptide B (Bld) [Mass/Vol] 45 pg/mL Normal 0 - 125 [facility] Comment on above: Performed By: #### 2 27503 #### [facility],[address] [place] [address] 23585 TROPONIN I, HIGH SENSITIVITY on 05-30-2020 HS TROPONIN 5.1 pg/mL Normal 0.0 - 51.4 [facility] Comment on above: Performed By: #### 2 41042 #### [facility],[address] [place] [address] 52198 HS TROPONIN <4.0 Normal 0.0 - 51.4 [facility] Comment on above: Performed By: #### 2 01908 ####[facility],[address] [place] [address] 12975 EMERGENCY REPORTon 0 EMERGENCY REPORT [facility] EMERGENCY ROOM REPORT NAME ACCOUNT SEX AGE ADMIT DISCHARGE PT MED. RECORD# NUMBER DATE DATE TYPE JEANNE [id number] F 60 04/15/20 1 TAMIKO [id number] ROOM: [facility] DATE OF : 1960 DICTATING PHYSICIAN: Kunal Tapia ADDENDUM REVIEW OF SYSTEMS: General: Some malaise and tachycardia. No fever HEENT-no sorethroat or ear ache Neck-no stiffness Lungs-no SOB Abd- no nausea or vomiting Skin-non rash Neuro=no headache All other ROS were normal or neg. PHYSICAL EXAMINATION: General: She is awake, alert, coherent and cooperative. Vital signs are significant for a heart rate of 115. Eyes are equal, round and reactive. Ears are clear. Oropharynx shows moist mucous membranes. Neck with no nuchal rigidity or adenopathy. Lungs are clear to auscultation and percussion. Heart: Increased rate but regular rhythm. Abdomen: Soft and pliable, nontender. Skin: Warm and dry without rash. Lymphatic: No swelling or edema. Neurologic: Cranial nerves II through XII, motor and sensory function are intact. Musculoskeletal: There is no calf pain or tenderness. There is no sign of DVT. She has a negative Homans sign. DIAGNOSTIC DATA: A 12-lead EKG showed sinus tachycardia at 115 per minute with a right bundle branch block pattern but no acute ST-segment elevations, depressions or arrhythmias, as interpreted by myself, the emergency physician. Dictated By: Kunal Tapia MD 04/15/20 16:29 JOB #: [id number] Transcribed By: [email or web address] 04/16/20 11:25 Electronically signed by: Kunal Tapia M.D. 05/04/20 21:18 Page 1 of 1 JEANNE, Emergency Room Report TAMIKO RYAN : 1960 Page 2 of 1 JEANNE, Emergency Room Report TMAIKO Normal [facility] EMERGENCY REPORT [facility] EMERGENCY ROOM REPORT NAME ACCOUNT SEX AGE ADMIT DISCHARGE PT MED. RECORD# NUMBER DATE DATE TYPE JEANNE [id number] F 60 04/15/20 1 TAMIKO [id number] ROOM: 304 DATE OF : 1960 DICTATING PHYSICIAN: Kunal Tapia ADDENDUM: DIAGNOSTIC DATA: Laboratory results: Initial 12-lead EKG showed a sinus tachy at 115 per minute. There is no acute ST segment elevation, depressions, or arrhythmias. Her D-dimer was slightly positive was 253. Troponin was negative. Basic metabolic panel was normal. White count was 5.9 with a normal hemoglobin and hematocrit. Chest x-ray does show a right lower lobe infiltrate consistent with her previous COVID-19 diagnosis. Repeat 12-lead EKG showed still a sinus tachy at 120 per minute with a right bundle branch block, but no acute ST segment elevation of depressions. DIAGNOSES: 1. Tachycardia. 2. Status post COVID-19. 3. Right lower lobe pneumonia. PLAN/DISPOSITION: The patient is awaiting a CT scan of the chest at this time and was signed out to Dr. Rutherford for final evaluation pending CT scan results. Dictated By: Kunal Tapia MD 04/15/20 18:42 JOB #: [id number] Transcribed By: am 04/16/20 12:47 Electronically signed by: Kunal Tapia M.D. 05/04/20 21:15 Page 1 of 1 JEANNE, Emergency Room Report TAMIKO [facility] EMERGENCY REPORT [facility] EMERGENCY ROOM REPORT NAME ACCOUNT SEX AGE ADMIT DISCHARGE PT MED. RECORD# NUMBER DATE DATE TYPE JEANNE [id number] F 60 04/15/20 1 TAMIKO [id number] ROOM: 304 DATE OF : 1960 DICTATING PHYSICIAN: Kunal Tapia CHIEF COMPLAINT: Tachycardia. HISTORY OF PRESENT ILLNESS: This is a 60-year-old female who developed COVID19 symptoms at the end of March. She was tested November 2 and was COVID positive. Her symptoms have fairly well resolved and she has been back to work x1 days. She states that today she was sitting down and noticed that her resting heart rate seemed somewhat fast, and she checked her pulse and it was 90. She put her watch that checks her pulse and it was as high as 120. She denies any nausea or vomiting. She feels thirsty. She has had no fever or chills. She denies any difficulty breathing. She presents now with tachycardia. PAST MEDICAL HISTORY: Negative for any major medical problems. SOCIAL HISTORY: Negative for smoking or alcohol. REVIEW OF SYSTEMS: In general, she has had minimal malaise, but no other symptoms. ENT: No earache or sore throat currently. LUNGS: No difficulty breathing currently. HEART: No chest pain or palpitations, but increased heart rate. ABDOMEN: No nausea, vomiting or diarrhea. No melanotic stools. GENITOURINARY: No dysuria, frequency or hematuria. MUSCULOSKELETAL: Denies any calf pain or thigh pain at this time. Denies any headache or paresthesias. Dictated By: Kunal Tapia MD 04/15/20 16:14 JOB #: [id number] Transcribed By: sher 04/16/20 11:40 Electronically signed by: Kunal Tapia M.D. 05/04/20 21:15 Page 1 of 1 JEANNE Emergency Room Report TAMIKO [facility] EMERGENCY REPORTon 0 EMERGENCY REPORT [facility] EMERGENCY ROOM REPORT NAME ACCOUNT SEX AGE ADMIT DISCHARGE PT MED. RECORD# NUMBER DATE DATE TYPE JEANNE [id number] F 60 04/15/20 3 TAMIKO [id number] ROOM: ER DATE OF : 1960 DICTATING PHYSICIAN: Kaveh Rutherford TIME SEEN: I am seeing the patient at 7 p.m. CHIEF COMPLAINT/HISTORY OF PRESENT ILLNESS: This is a 60-year-old white female seen here earlier by Dr. Tpaia for complaint of tachycardia. She denies any shortness of breath. Denies any chest pain presently. She states she did have a little bit of chest pressure earlier but that has since resolved. She has complained of some fluttering in her chest off and on. The patient started having COVID-like symptoms March 28 where she had some mild body aches, chills, was running a low-grade fever, but she just quarantined at home but then ended up getting tested April 06 for COVID because her symptoms were getting a little worse again. That did come back positive. Her primary care physician put her on an inhaler and she stopped running a fever as of last Monday, and actually has been feeling pretty good. But today she sat down at the computer to do some work and she could tell that her heart rate was a little fast. She has a FibBit and that said her heart rate was in the 90s, but she still thought that was a little high for her. But then when she kept checking it, her heart rate went up to 120 after she walked in to the kitchen, and since then she could not get a heart rate under 100 so she came here for an evaluation. PAST MEDICAL HISTORY: Denied. PAST SURGICAL HISTORY: Denied. ALLERGIES: She is allergic to Macrobid and pine nuts. SOCIAL HISTORY: She is not a smoker and she denies any use of alcohol or illicit drugs. She lives at home with family. REVIEW OF SYSTEMS: Has complained of a fever and chills last week, but none this week. Denies any sore throat, nasal congestion. Did admit to some chest pressure. Denies shortness of breath. Does admit to a very occasional cough. Denies any sputum, wheezing, abdominal pain, nausea, vomiting, diarrhea, constipation, melena, hematochezia, headache, numbness, unsteady gait, weakness, neck or back pain, joint pain. Does complain of some heart racing and palpitations. Further review of systems is negative here. PHYSICAL EXAMINATION: Blood pressure is 170/97, pulse 120, respiration rate 18, Page 1 of 3 JEANNE, Emergency Room Report TAMIKO RYAN : 1960 temperature 98.1, pulse oximetry in triage was 98%. However, when I put her on the pulse oximetry when I was in the room, on room air she was 91%. Weight is 173 pounds. Primary care is Dr. Kunal Cadena at [facility] in [place], [place]. Patient is alert and oriented x3. She presently appears in no acute distress. She is very pleasant and cooperative. She makes eye contact. She speaks in full sentences. HEENT: Head appears atraumatic. Pupils are equal and reactive to light. Red reflex is intact bilaterally. Extraocular muscles are intact. No conjunctival injection. No scleral icterus or lid edema. Ears: TMs are intact bilaterally. No erythema noted. No external auditory canal edema or bleeding. Nose exhibits no rhinorrhea or epistaxis. Mouth: Mucous membranes are moist. No pharyngeal erythema. Uvula is midline and elevates. Neck is supple with trachea midline. No JVD or lymphadenopathy. No posterior cervical tenderness. No nuchal rigidity. Lungs are clear anteriorly but diminished bibasilar and I do note crackles in the right base. There is no accessory muscle use noted. CVS: Heart rate and rhythm is regular without murmur. Mildly tachycardic at 120 beats per minute. Abdomen is soft and nontender with normoactive bowel sounds x4 quadrants. No guarding or rigidity. No rebound. No palpable abdominal mass. No hepatosplenomegaly. Back exhibits no midline or paraspinal region tenderness. No increased paraspinal muscle rigidity. Negative Jamie's sign. Extremities: No edema or cyanosis. Peripheral pulses are intact. No motor or sensory deficits noted. 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 Skin is warm and dry. No diaphoresis or rash. Neurologic exam shows the patient to be alert and oriented x4. No motor or sensory deficits are noted. Normal speech. No conversational dyspnea. DIAGNOSTIC DATA: Chest x-ray was read by the radiologist as showing a right lower lobe infiltrate. Her EKG was done at 1828 hours that shows a sinus tachycardia at 120 beats per minute with a right bundle branch block. Chamisal was approximately 90 degrees. I did review her lab work and her COVID swab was positive back on April 06 of this year. Today's lab work shows the white count to be normal at 5.9, hemoglobin 14, hematocrit 41.4, platelet count 340,000. Her D-dimer was elevated at 253. She did go over for a CT scan of her chest to rule out pulmonary embolism and those results (more content not included)... Normal [facility] EMERGENCY REPORT [facility] EMERGENCY ROOM REPORT NAME ACCOUNT SEX AGE ADMIT DISCHARGE PT MED. RECORD# NUMBER DATE DATE TYPE JEANNE, [id number] F 60 04/15/20 1 TAMIKO [id number] ROOM: 304 DATE OF : 1960 DICTATING PHYSICIAN: Kaveh Rutherford ADDENDUM: DIAGNOSTIC DATA: CT scan of the chest came back negative for pulmonary embolism. However, it did show multifocal infiltrates throughout the right lower lobe. There are areas of patchy consolidation consistent with pneumonia. We did do a blood gas on room air. It showed a pH of 7.39, pCO2 41, pO2 was a little bit low at 74, bicarb 25, O2 saturation 95%. She has remained tachycardic here. DIAGNOSES: 1. COVID19. 2. Right lower lobe pneumonia. 3. Resting tachycardia. PLAN/DISPOSITION: I discussed the case with Dr. Louis, and he did admit her for pneumonia. I had given the patient Rocephin and Zithromax. I did give her Decadron 6 mg IV. We do have blood cultures pending. Lactate came back normal at 1.1. Dictated By: Kaveh Rutherford DO 04/15/20 20:48 JOB #: [id number] Transcribed By: sher 04/16/20 12:40 Electronically signed by: E-Sign: Dr. Kaveh Rutherford D.O. 04/21/20 09:31 Page 1 of 1 [facility], Emergency Room Report TAMIKO Normal [facility] APTTon 04-16-2020 aPTT Coag (Bld) [Time] 28.6 s Normal 25.4 - 38.4 [facility] Comment on above: Performed By: #### 2 [id number] #### [address] [address] aPTT Coag (Bld) [Time] 30.1 s Normal 25.4 - 38.4 [facility] [facility] Comment on above: Performed By: #### 2 62865 #### [facility],[address] [place] [address] 95693 C-REACTIVE PROTEINon 020 CRP 0.80 mg/dl Normal 0.00 - 0.90 [facility] Comment on above: Performed By: #### 2 27821 ####[facility],[address] [place] [address] 06442 CBC + DIFFon 04-16-2020 Baso # 0.00 x10EE3/UL Normal 0.00 - 0.10 [facility] Comment on above: Performed By: #### 2 98167 ####[facility],[address] [place], [place] [address] Basophils/100 WBC (Bld) 0.4 % Normal 0.0 - 2.0 [facility] Comment on above: Performed By: #### 2 67480 ####[facility],[address] [place] [address] CBC + DIFF Normal [facility] Comment on above: Result Comment: CBC- COMPLETE BLOOD COUNT Performed By: #### 2 58204 ####[facility],[address] [place] [address] EO # 0.00 x10EE3/UL Normal 0.00 - 0.50 [facility] Comment on above: Performed By: #### 2 26209 ####[facility],[address] [place] [address] Eosinophils/100 WBC (Bld) 0.0 % Normal 0.0 - 7.0 [facility] Comment on above: Performed By: #### 2 40608 ####[facility],[address] [place] [address] Erythrocyte distribution width (RBC) [Ratio] 13.1 % Normal 12.0 - 15.6 [facility] Comment on above: Performed By: #### 2 53485 ####[facility],[address] [place] [address] Hematocrit (Bld) [Volume fraction] 39.6 % Normal 34.0 - 46.0 [facility] Comment on above: Performed By: #### 2 64857 ####[facility],[address] [place] [address] Hemoglobin (Bld) [Mass/Vol] 13.5 g/dL Normal 12.0 - 16.0 [facility] Comment on above: Performed By: #### 2 45977 ####[facility],[address] [place], [place] [id number] Lymph # 1.50 x10EE3/UL Normal 0.80 - 2.80 [facility] Comment on above: Performed By: #### 2 19522 ####[facility],[address] [place] [address] 15247 Lymphocytes/100 WBC (Bld) 18.8 % Low 20.0 - 45.0 [facility] Comment on above: Performed By: #### 2 01366 ####[facility],[address] [place] [address] MANUAL DIFF N/A Normal [facility] Comment on above: Performed By: #### 2 46167 ####[facility],[address] [place] [address] MCH (RBC) [Entitic mass] 30 pg Normal 27 - 33 [facility] Comment on above: Performed By: #### 2 63641 ####[facility],[address] [place] [address] MCHC 34 X10 3 Normal 32 - 36 [facility] Comment on above: Performed By: #### 2 01775 ####[facility],[address] [place], [place] [id number] MCV (RBC) [Entitic vol] 87 fL Normal 80 - 99 [facility] Comment on above: Performed By: #### 2 81328 ####[facility],[address] [place] [address] 32957 Barbour # 0.10 x10EE3/UL Low 0.20 - 1.00 [facility] Comment on above: Performed By: #### 2 69312 ####[facility],[address] [place], [place] [id number] MONOS % 1.3 % Normal 0.0 - 10.0 [facility] Comment on above: Performed By: #### 2 65308 ####[facility],[address] [place] [address] 28053 Morphology Pasquale (Bld) [Interp] N/A Normal [facility] Comment on above: Result Comment: {CD] Performed By: #### 2 63879 ####[facility],[address] [place] [address] 10076 Neut # 6.50 x10EE3/UL Normal 1.50 - 7.10 [facility] Comment on above: Performed By: #### 2 25730 ####[facility],[address] [place] [address] 11816 Neutrophils/100 WBC (Bld) 79.5 % High 46.0 - 76.0 [facility] Comment on above: Performed By: #### 2 46175 ####[facility],[address] [place], [place] [id number] PLATELET 350 x10EE3/UL Normal 150 - 450 [facility] Comment on above: Performed By: #### 2 13180 ####[facility],[address] [place] [address] 90249 Platelet mean volume (Bld) [Entitic vol] 8.2 fL Normal 6.6 - 10.5 [facility] Comment on above: Result Comment: AUTO MATED DIFFERENTIAL Performed By: #### 2 06222 ####[facility],[address] [place] [address] 68012 RBC 4.57 x 10EE6/UL Normal 4.10 - 5.30 [facility] Comment on above: Performed By: #### 2 06996 ####[facility],[address] [place] [address] 88327 WBC 8.1 x 10EE3/UL Normal 4.5 - 10.8 [facility] Comment on above: Performed By: #### 2 27622 ####[facility],[address] [place] [address] 35691 CMP with eGFRon 04-16-2020 AGE 60 years Normal [facility] Comment on above: Performed By: #### 2 24674 ####[facility],[address] [place] [address] 66234 Albumin [Mass/Vol] 3.4 g/dL Normal 3.4 - 5.0 [facility] Comment on above: Performed By: #### 2 06037 ####[facility],[address] [place] [address] 66342 Albumin/Globulin [Mass ratio] 0.8 {ratio} Low 0.9 - 1.6 [facility] Comment on above: Performed By: #### 2 75717 ####[facility],[address] [place] [address] 66998 ALK PHOS 66 U/L Normal 46 - 116 [facility] Comment on above: Performed By: #### 2 79609 ####[facility],[address] [place] [address] 15711 ALT [Catalytic activity/Vol] 27 U/L Normal 14 - 59 [facility] Comment on above: Performed By: #### 2 13238 ####[facility],[address] [place] [address] 96178 Anion gap [Moles/Vol] 14 mmol/L Normal 10 - 20 [facility] Comment on above: Performed By: #### 2 79122 ####[facility],[address] [place] [address] 84282 AST [Catalytic activity/Vol] 17 U/L Normal 13 - 39 [facility] Comment on above: Performed By: #### 2 99063 ####[facility],[address] [place] [address] 03053 B/C RATIO 10 ratio Normal 0 - 30 [facility] Comment on above: Performed By: #### 2 30669 ####[facility],[address] [place] [address] 12760 Bilirubin [Mass/Vol] 0.2 mg/dL Normal 0.2 - 1.0 [facility] Comment on above: Performed By: #### 2 15314 ####[facility],[address] [place] [address] 52269 Calcium [Mass/Vol] 8.7 mg/dL Normal 8.5 - 10.1 [facility] Comment on above: Performed By: #### 2 15444 ####[facility],[address] [place] [address] 95244 Chloride [Moles/Vol] 104 mmol/L Normal 98 - 107 [facility] Comment on above: Performed By: #### 2 87279 ####[facility],[address] [place] [address] 42016 CMP with eGFR Normal [facility] Comment on above: Result Comment: COMP REHENSIVE METABOLIC PANEL Performed By: #### 2 14370 ####[facility],[address] [place] [address] 82500 CO2 [Moles/Vol] 23.2 mmol/L Normal 21.0 - 32.0 [facility] Comment on above: Performed By: #### 2 62994 ####[facility],[address] [place] [address] 92862 Creatinine [Mass/Vol] 0.7 mg/dL Normal 0.5 - 1.0 [facility] Comment on above: Performed By: #### 2 53684 ####[facility],[address] [place] [address] 06214 GFR/1.73 sq M.predicted among non-blacks MDRD (S/P/Bld) [Vol rate/Area] mL/min/{1.73_m2} Normal 60 - 999 [facility] Comment on above: Performed By: #### 2 63867 ####[facility],[address] [place] [address] 17604 Result Comment: ACCO RDING TO THE NATIONAL KIDNEY DISEASE EDUCATION PROGRAM(NKDE), A NORMAL eGFR IS A VALUE GREATER THAN OR EQUAL TO 60 ML/MIN/1.73 SQ METERS. CHRONIC KIDNEY DISEASE: <60mL/MIN/1.73 SQ METERS KIDNEY FAILURE: <15mL/MIN/1.73 SQ METERS THIS TEST SHOULD ONLY BE USED FOR PATIENTS 18 YEARS OF AGE AND OLDER. Globulin (S) [Mass/Vol] 4.3 g/dL High 1.5 - 3.8 [facility] Comment on above: Performed By: #### 2 75884 ####[facility],[address] [place] [address] 60832 Glucose [Mass/Vol] 153 mg/dL High 74 - 106 [facility] Comment on above: Performed By: #### 2 25403 ####[facility],[address] [place] [address] 24060 Potassium [Moles/Vol] 4.1 mmol/L Normal 3.5 - 5.1 [facility] Comment on above: Performed By: #### 2 57467 ####[facility],[address] [place] [address] 63316 Protein [Mass/Vol] 7.7 g/dL Normal 6.4 - 8.2 [facility] Comment on above: Performed By: #### 2 39619 ####[facility],[address] [place] [address] 90864 Sodium [Moles/Vol] 137 mmol/L Normal 136 - 145 [facility] Comment on above: Performed By: #### 2 74304 ####[facility],[address] [place] [address] 18984 Urea nitrogen [Mass/Vol] 7 mg/dL Normal 7 - 18 [facility] Comment on above: Performed By: #### 2 41411 ####[facility],[address] [place] [address] 09108 CPKon 04-16-2020 CPK 90 U/L Normal 26 - 192 [facility] Comment on above: Performed By: #### 2 76678 ####[facility],[address] [place] [address] 69980 D-DIMER, QUANTITATIVEon 04-05 D-DIMER QUANT 265 ng/ml High 0 - 230 [facility] Comment on above: Performed By: #### 2 00630 #### [facility],[address] [place] [address] 51222 D-DIMER, QUANTITATIVE Normal [facility] Comment on above: Result Comment: ABBEY T D-DIMER Performed By: #### 2 03729 #### [facility],[address] [place] [address] 25086 LDHon 04-16-2020 LDH 195 U/L Normal 81 - 234 [facility] Comment on above: Performed By: #### 2 25236 ####[facility],[address] [place] [address] 41066 PROTHROMBIN TIME AND INRon 06-16-2019 INR Coag (PPP) [Relative time] 1.1 {INR} Normal 0.8 - 1.2 [facility] Comment on above: Result Comment: T HE HEMOSIL THROMBOPLASTIN REAGENT USED IN THE PROTHROMBIN TIME TEST INTERACTS WITH THE DRUG CUBICIN (DAPTOMYCIN) AND WILL RESULT IN FALSELY ELEVATED PT / INR RESULTS INR INTERPRETATION INR INDICATION PREVENTION AND TREATMENT OF THROMBOEMBOLISM ASSOCIATED WITH: 2.0 - 3.0 ATRIAL FIBRILLATION, BIOPROSTHETIC HEART VALVES, PULMONARY EMBOLISM, VENOUS THROMBOSIS, SYSTEMIC EMBOLISM POST MYOCARDIAL INFARCTION 2.5 - 3.5 MECHANICAL HEART VALVES Performed By: #### 2 49066 ####[facility],[address] [place] [address] 07348 PROTHROMBIN TIME AND INR Normal [facility] Comment on above: Result Comment: PROT HROMBIN TIME AND INR Performed By: #### 2 99410 ####[facility],[address] [place] [address] 90673 PT-COUMADIN 11.5 sec Normal 9.3 - 14.1 [facility] Comment on above: Performed By: #### 2 92199 ####[facility],[address] [place] [address] 02664 INR Coag (PPP) [Relative time] 1.0 {INR} Normal 0.8 - 1.2 [facility] Comment on above: Result Comment: T HE HEMOSIL THROMBOPLASTIN REAGENT USED IN THE PROTHROMBIN TIME TEST INTERACTS WITH THE DRUG CUBICIN (DAPTOMYCIN) AND WILL RESULT IN FALSELY ELEVATED PT / INR RESULTS INR INTERPRETATION INR INDICATION PREVENTION AND TREATMENT OF THROMBOEMBOLISM ASSOCIATED WITH: 2.0 - 3.0 ATRIAL FIBRILLATION, BIOPROSTHETIC HEART VALVES, PULMONARY EMBOLISM, VENOUS THROMBOSIS, SYSTEMIC EMBOLISM POST MYOCARDIAL INFARCTION 2.5 - 3.5 MECHANICAL HEART VALVES Performed By: #### 2 07822 ####[facility],[address] [place] [address] PROTHROMBIN TIME AND INR Normal [facility] Comment on above: Result Comment: PROT HROMBIN TIME AND INR Performed By: #### 2 78491 ####[facility],[address] [place] [address] PT-COUMADIN 11.1 sec Normal 9.3 - 14.1 [facility] Comment on above: Performed By: #### 2 03976 ####[facility],[address] [place] [address] 13715 TROPONIN I, HIGH SENSITIVITY on 04-16-2020 HS TROPONIN 5.5 pg/mL Normal 0.0 - 51.4 [facility] Comment on above: Performed By: #### 2 17753 #### [facility],[address] [place], [place] [id number] ARTERIAL BLOOD GAS ANALYSISo n 04-15-2020 ALLENS TEST Positive Normal [facility] Comment on above: Result Comment: { TI ME CALLED 2020 Performed By: #### 2 69246 #### [facility],[address] [place], [place] [id number] ARTERIAL BLOOD GAS ANALYSIS Normal [facility] Comment on above: Result Comment: JOSE RIAL BLOOD GAS Performed By: #### 2 85992 #### [facility],[address] [place] [address] 56774 BE 0 Normal -2 - 3 [facility] Comment on above: Performed By: #### 2 16032 #### [facility],[address] [place], [place] [id number] HCO3 (Bld) [Moles/Vol] 25 mmol/L High 20 - 24 [facility] Comment on above: Performed By: #### 2 48791 #### [facility],[address] [place] [address] Heart rate 114 /min Normal [facility] Comment on above: Performed By: #### 2 49912 #### [facility],[address] [place] [address] MODALITY RA Normal [facility] Comment on above: Performed By: #### 2 00005 #### [facility],[address] [place] [address] PCO2 41 mm Hg Normal 35 - 45 [facility] Comment on above: Performed By: #### 2 84321 #### [facility],[address] [place] [address] pH (Bld) 7.39 [pH] Normal 7.35 - 7.45 [facility] Comment on above: Performed By: #### 2 24711 #### [facility],[address] [place] [address] PO2 74 mm Hg Low 80 - 105 [facility] Comment on above: Performed By: #### 2 02269 #### [facility],[address] [place] [address] SAMPLE SITE RR Normal [facility] Comment on above: Performed By: #### 2 66048 #### [facility],[address] [place] [address] SaO2 95 Normal 95 - 98 [facility] Comment on above: Result Comment: TIME RESULT CALLED _2019 04/15/20.YUDITH. { FIO2/LPM 21% Performed By: #### 2 54252 #### [facility],[address] [place] [address] TOTAL RR 20 Normal [facility] Comment on above: Performed By: #### 2 19603 #### [facility],[address] [place] [address] 36615 VENT N/A Normal [facility] Comment on above: Performed By: #### 2 62383 #### [facility],[address] [place] [address] 26561 BMP with eGFRon 04-15-2020 AGE 60 years Normal [facility] Comment on above: Performed By: #### 2 54874 #### [facility],[address] [place] [address] 77998 Anion gap [Moles/Vol] 11 mmol/L Normal 10 - 20 [facility] Comment on above: Performed By: #### 2 76416 #### [facility],[address] [place] [address] 39519 BMP with eGFR Normal [facility] Comment on above: Result Comment: BASI C METABOLIC PANEL Performed By: #### 2 46549 #### [facility],[address] [place] [address] 59874 Calcium [Mass/Vol] 9.1 mg/dL Normal 8.5 - 10.1 [facility] Comment on above: Performed By: #### 2 13536 #### [facility],[address] [place] [address] 01429 Chloride [Moles/Vol] 102 mmol/L Normal 98 - 107 [facility] Comment on above: Performed By: #### 2 30726 #### [facility],[address] [place] [address] 71710 CO2 [Moles/Vol] 28.1 mmol/L Normal 21.0 - 32.0 [facility] Comment on above: Performed By: #### 2 64502 #### [facility],[address] [place] [address] 29156 Creatinine [Mass/Vol] 0.7 mg/dL Normal 0.5 - 1.0 [facility] Comment on above: Performed By: #### 2 04114 #### [facility],[address] [place] [address] 68012 GFR/1.73 sq M.predicted among non-blacks MDRD (S/P/Bld) [Vol rate/Area] mL/min/{1.73_m2} Normal 60 - 999 [facility] Comment on above: Performed By: #### 2 18492 #### [facility],[address] [place] [address] 27346 Result Comment: ACCO RDING TO THE NATIONAL KIDNEY DISEASE EDUCATION PROGRAM(NKDE), A NORMAL eGFR IS A VALUE GREATER THAN OR EQUAL TO 60 ML/MIN/1.73 SQ METERS. CHRONIC KIDNEY DISEASE: <60mL/MIN/1.73 SQ METERS KIDNEY FAILURE: <15mL/MIN/1.73 SQ METERS THIS TEST SHOULD ONLY BE USED FOR PATIENTS 18 YEARS OF AGE AND OLDER. Glucose [Mass/Vol] 179 mg/dL High 74 - 106 [facility] Comment on above: Performed By: #### 2 83735 #### [facility],[address] [place] [address] 50391 Potassium [Moles/Vol] 4.0 mmol/L Normal 3.5 - 5.1 [facility] Comment on above: Performed By: #### 2 01254 #### [facility],[address] [place] [address] 50613 Sodium [Moles/Vol] 137 mmol/L Normal 136 - 145 [facility] Comment on above: Performed By: #### 2 03409 #### [facility],[address] [place] [address] 79700 Urea nitrogen [Mass/Vol] 11 mg/dL Normal 7 - 18 [facility] Comment on above: Performed By: #### 2 08461 #### [facility],[address] [place] [address] 56709 C-REACTIVE PROTEINon 04-15-2 020 CRP 1.00 mg/dl High 0.00 - 0.90 [facility] Comment on above: Performed By: #### 2 14129 #### [facility],[address] [place] [address] CBC + DIFFon 04-15-2020 Baso # 0.10 x10EE3/UL Normal 0.00 - 0.10 [facility] Comment on above: Performed By: #### 2 69560 ####[facility],[address] [place], [place] [id number] Basophils/100 WBC (Bld) 0.9 % Normal 0.0 - 2.0 [facility] Comment on above: Performed By: #### 2 18471 ####[facility],[address] [place] [address] CBC + DIFF Normal [facility] Comment on above: Result Comment: CBC- COMPLETE BLOOD COUNT Performed By: #### 2 09312 ####[facility],[address] [place] [address] EO # 0.10 x10EE3/UL Normal 0.00 - 0.50 [facility] Comment on above: Performed By: #### 2 56128 ####[facility],[address] [place] [address] Eosinophils/100 WBC (Bld) 1.9 % Normal 0.0 - 7.0 [facility] Comment on above: Performed By: #### 2 21349 ####[facility],[address] [place] [address] Erythrocyte distribution width (RBC) [Ratio] 13.0 % Normal 12.0 - 15.6 [facility] Comment on above: Performed By: #### 2 75709 ####[facility],[address] [place] [address] Hematocrit (Bld) [Volume fraction] 41.4 % Normal 34.0 - 46.0 [facility] Comment on above: Performed By: #### 2 23921 ####[facility],[address] [place] [address] Hemoglobin (Bld) [Mass/Vol] 14.0 g/dL Normal 12.0 - 16.0 [facility] Comment on above: Performed By: #### 2 38731 ####[facility],[address] [place] [address] Lymph # 2.10 x10EE3/UL Normal 0.80 - 2.80 [facility] Comment on above: Performed By: #### 2 29588 ####[facility],[address] [place] [address] Lymphocytes/100 WBC (Bld) 34.9 % Normal 20.0 - 45.0 [facility] Comment on above: Performed By: #### 2 57716 ####[facility],[address] [place] [address] MANUAL DIFF N/A Normal [facility] Comment on above: Performed By: #### 2 96748 ####[facility],[address] [place] [address] MCH (RBC) [Entitic mass] 29 pg Normal 27 - 33 [facility] Comment on above: Performed By: #### 2 27929 ####[facility],[address] [place], [place] [id number] MCHC 34 X10 3 Normal 32 - 36 [facility] Comment on above: Performed By: #### 2 22493 ####[facility],[address] [place], [place] [id number] MCV (RBC) [Entitic vol] 86 fL Normal 80 - 99 [facility] Comment on above: Performed By: #### 2 73673 ####[facility],[address] [place] [address] Barbour # 0.40 x10EE3/UL Normal 0.20 - 1.00 [facility] Comment on above: Performed By: #### 2 86408 ####[facility],[address] [place] [address] 08805 MONOS % 6.5 % Normal 0.0 - 10.0 [facility] Comment on above: Performed By: #### 2 01857 ####[facility],[address] [place] [address] 19528 Morphology Pasquale (Bld) [Interp] N/A Normal [facility] Comment on above: Result Comment: {CD] Performed By: #### 2 28636 ####[facility],[address] [place] [address] 63505 Neut # 3.30 x10EE3/UL Normal 1.50 - 7.10 [facility] Comment on above: Performed By: #### 2 99571 ####[facility],[address] [place] [address] 20419 Neutrophils/100 WBC (Bld) 55.8 % Normal 46.0 - 76.0 [facility] Comment on above: Performed By: #### 2 88170 ####[facility],[address] [place] [address] 17261 PLATELET 340 x10EE3/UL Normal 150 - 450 [facility] Comment on above: Performed By: #### 2 29385 ####[facility],[address] [place] [address] 56148 Platelet mean volume (Bld) [Entitic vol] 8.0 fL Normal 6.6 - 10.5 [facility] Comment on above: Result Comment: AUTO MATED DIFFERENTIAL Performed By: #### 2 06076 ####[facility],[address] [place] [address] 33753 RBC 4.79 x 10EE6/UL Normal 4.10 - 5.30 [facility] Comment on above: Performed By: #### 2 98040 ####[facility],[address] [place] [address] 46032 WBC 5.9 x 10EE3/UL Normal 4.5 - 10.8 [facility] Comment on above: Performed By: #### 2 16573 ####[facility],[address] [place] [address] 41178 CHEST 1 VIEWon 04-15-2020 CHEST [address] [address] Patient: TAMIKO SHEARER Phone#: : 1960 Age: 60 Gender: F Pt. Type: ER Account: [id number] Location: 052 Ordering: DR. KUNAL TAPIA Exam Date: 04/15/2020/15:27 Family Phys: Charge Code: [id number] Physician: Bond Order #: [id number] DLP Dose#: PROCEDURE: X-RAY CHEST 1 VIEW COMPARISON: None. INDICATIONS: Irregular hr FINDINGS: LUNGS: There is an infiltrate in the right lower lobe. VASCULATURE: Normal. Unremarkable pulmonary vasculature. CARDIAC: Normal. No cardiac silhouette abnormality or cardiomegaly. MEDIASTINUM: Normal. No visible mass or adenopathy. PLEURA: Normal. No effusion or pleural thickening. BONES: Degenerative changes of the spine. OTHER: Negative. CONCLUSION: 1. Right lower lobe infiltrate. Dictated by: Petra Turner MD on 04/15/2020 at 15:58 Approved by: Petra Turner MD on 04/15/2020 at 15:[address] [facility] [address] CHEST (PE PROTOCOL)on CT CHEST (PE PROTOCOL) [place] [address] Patient: TAMIKO SHEARER Phone#: : 1960 Age: 60 Gender: F Pt. Type: ER Account: [id number] Location: 052 Ordering: DR. KUNAL TAPIA Exam Date: 04/15/2020/18:51 Family Phys: Charge Code: [id number] Physician: Bond Order #: [id number] DLP Dose#: 14.40mGy PROCEDURE: CT CHEST WITH CONTRAST FOR PE COMPARISON: [facility], XR, CHEST 1 VIEW, 04/15/2020, 15:27. INDICATIONS: Embolism. TECHNIQUE: After obtaining the patient's consent, CT images were obtained with non-ionic intravenous contrast material. Multi-planar images were created to optimize visualization of vascular anatomy with MPR/MIPS and 3D imaging. All CT scans at this facility use dose modulation, iterative reconstruction, and/or weight based dosing when appropriate to reduce radiation dose to as low as reasonably achievable. IV CONTRAST: Omnipaque 350,80ml TOTAL DOSE: 14.40 CTDIvol(mGy) FINDINGS: VASCULATURE: Normal. No visible pulmonary arterial thrombus or attenuation. AORTA: No aortic aneurysm. LUNGS: There is multifocal infiltrates throughout the right lower lobe. There are areas of patchy consolidation consistent with pneumonia. MICA: There is a reactive right hilar lymph node. MEDIASTINUM: Normal. No mass or adenopathy. CARDIAC: Normal. No enlargement, pericardial thickening, or significant calcification. PLEURA: Normal. No mass or effusion. CHEST WALL: Normal. No mass or axillary adenopathy. LIMITED ABDOMEN: Small hiatal hernia. BONES: Normal. No bony lesion or fracture. OTHER: Negative. CONCLUSION: 1. Right lower lobe pneumonia 2. No pulmonary embolism. [place] [id number] Patient: TAMIKO SHEARER Phone#: : [phone] Age: 60 Gender: F Pt. Type: ER Account: [id number] Location: [id number] Ordering: DR. KUNAL TAPIA Exam Date: 04/15/2020/18:51 Family Phys: Charge Code: [id number] Physician: Bond Order #: [id number] DLP Dose#: 14.40mGy Dictated by: Petra Turner MD on 04/15/2020 at 19:04 Approved by: Petra Turner MD on 04/15/2020 at 19:11 Normal [facility] CULTURE BLOODon 04-15-2020 Microscopic examination of blood, culture CULTURE BLOOD CULTURE BLOOD SET: 2 of 2 24HOUR REPORT NEGATIVE 48HOUR REPORT NEGATIVE 72HOUR REPORT NEGATIVE M I C R O B I O L O G Y R E P O R T FINAL Antimicrobial Susceptibility and Organism Identification Report Specimen Number : [id number] Requested : 04/15/20 Specimen Source : BLOOD Collected : 04/15/20 19:48 [place] of Isolation : EMERGENCY ROOM Received : 04/15/20 19:48 Requesting Physician : KHUSHBOO Patient/Specimen Tests and Comments Specimen Comments FINAL REPORT: NO GROWTH AT 5 DAYS Tech : Source : BLOOD ID # : [id number] FINAL Report Date : / / : Collected : 04/15/20 19:48 04/21/20.743.LJO. 04/21/20.JENNIFER.JOLENE MPLETE 2 of 2 NEGATIVE NEGATIVE NEGATIVE Normal [facility] Comment on above: Performed By: #### 2 [id number] ####[facility],[address] [place] [address] Microscopic examination of blood, culture CULTURE BLOOD CULTURE BLOOD SET: 1 of 2 24HOUR REPORT NEGATIVE 48HOUR REPORT NEGATIVE 72HOUR REPORT NEGATIVE M I C R O B I O L O G Y R E P O R T FINAL Antimicrobial Susceptibility and Organism Identification Report Specimen Number : [id number] Requested : 04/15/20 Specimen Source : BLOOD Collected : 04/15/20 19:48 [place] of Isolation : EMERGENCY ROOM Received : 04/15/20 19:48 Requesting Physician : KHUSHBOO Patient/Specimen Tests and Comments Specimen Comments FINAL REPORT: NO GROWTH AT 5 DAYS Tech : Source : BLOOD ID # : [id number] FINAL Report Date : / / : Collected : 04/15/20 19:48 04/21/2044.BKO. 04/21/20.BKO.CO MPLETE 1 of 2 NEGATIVE NEGATIVE NEGATIVE Normal [facility] Comment on above: Performed By: #### 2 [id number] ####[facility],[address] [place] [address]1983 D-DIMER, QUANTITATIVEon 04-05 D-DIMER QUANT 253 ng/ml High 0 - 230 [facility] Comment on above: Performed By: #### 2 [id number] #### [facility],[address] [place] [address] 11255 D-DIMER, QUANTITATIVE Normal [facility] Comment on above: Result Comment: ABBEY T D-DIMER Performed By: #### 2 [id number] #### [facility],[address] [place] [address] 15621 LACTATEon 04-15-2020 Lactate [Moles/Vol] 1.1 mmol/L Normal 0.4 - 2.0 [facility] Comment on above: Performed By: #### 2 [id number] #### [facility],[address] [place] [address] 84951 MAGNESIUMon 04-15-2020 Magnesium [Mass/Vol] 2.3 mg/dL Normal 1.8 - 2.4 [facility] Comment on above: Performed By: #### 2 [id number] #### [facility],[address] [place] [address] 16854 TROPONIN I, HIGH SENSITIVITY on 04-15-2020 HS TROPONIN 4.3 pg/mL Normal 0.0 - 51.4 [facility] Comment on above: Performed By: #### 2 [id number] #### [facility],[address] [place] [address] 67079 CORONAVIRUS PCR [CCL]on REF LAB REPORT Positive Normal [facility] Comment on above: Performed By: #### 2 [id number] ####[facility],[address] [place] [address] 10785 SARS-CoV-2 (COVID-19) RNA SHAN+probe Ql (Unsp spec) Nasopharyngeal Swab Normal [facility] Comment on above: Result Comment: Call ed to and read back by: Jessie [facility] 04/09/2020 0239 by Juan Antonio Bowen. Corrected on 04/09 AT 0250: Previously reported as U Performed By: #### 2 [id number] ####[facility],[address] [place] [address] 41762 SARS-CoV-2 (COVID-19) RNA SHAN+probe Ql (Unsp spec) Positive Abnormal [facility] Comment on above: Result Comment: Posi tive for COVID19 (SARS CoV2) by PCR.(*) This test was developed and its performance characteristics determined by [facility] [place]. This test has been authorized by FDA under an Emergency Use Authorization (EUA). This test has been validated in accordance with the FDA's Guidance Document Policy for Diagnostics Testing in Laboratories Certified to Perform High Complexity Testing under CLIA prior to Emergency use Authorization for Coronavirus Disease 2019 during the Public Health Emergency issued on August 03, 2019. [place] [address] [place] [address] Benja Woods III, M.D. 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 [facility] Comment on above: Result Comment: Posi tive for This test was developed and its performance characteristics determined by [facility]'s [facility] [place]. This test has been authorized by FDA under an Emergency Use Authorization (EUA). This test has been validated in accordance with the FDA's Guidance Document Policy for Diagnostics Testing in Laboratories Certified to Perform High Complexity Testing under CLIA prior to Emergency use Authorization for Coronavirus Disease 2019 during the Public Health Emergency issued on August 03, 2019. COVID19 (SARS This test was developed and its performance characteristics determined by [facility]'s [facility] [place]. This test has been authorized by FDA under an Emergency Use Authorization (EUA). This test has been validated in accordance with the FDA's Guidance Document Policy for Diagnostics Testing in Laboratories Certified to Perform High Complexity Testing under CLIA prior to Emergency use Authorization for Coronavirus Disease 2019 during the Public Health Emergency issued on August 03, 2019. CoV2) by This test was developed and its performance characteristics determined by [facility]'s [facility] [place]. This test has been authorized by FDA under an Emergency Use Authorization (EUA). This test has been validated in accordance with the FDA's Guidance Document Policy for Diagnostics Testing in Laboratories Certified to Perform High Complexity Testing under CLIA prior to Emergency use Authorization for Coronavirus Disease 2019 during the Public Health Emergency issued on August 03, 2019. PCR.(*) This test was developed and its performance characteristics determined by [facility]'s [facility] [place]. This test has been authorized by FDA under an Emergency Use Authorization (EUA). This test has been validated in accordance with the FDA's Guidance Document Policy for Diagnostics Testing in Laboratories Certified to Perform High Complexity Testing under CLIA prior to Emergency use Authorization for Coronavirus Disease 2019 during the Public Health Emergency issued on August 03, 2019. Vital Signs Date Time Vital Sign Value Performing Clinician Facility 10-14-2024 10:50-0400 Body height 164.6 cm Joleen Rachana PLANER SETUP 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 Work Phone: [facility] 10-14-2024 10:50-0400 Body mass index (BMI) [Ratio] 30.47 kg/m2 Joleen Nicasio PLANER SETUP 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 Work Phone: [facility] 10-14-2024 10:50-0400 Body weight 82.56 kg Joleen Rachana PLANER SETUP 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 Work Phone: [facility] 10-14-2024 10:50-0400 Diastolic blood pressure 74 mm[Hg] Joleen Nicasio PLANER SETUP 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 Work Phone: [facility] 10-14-2024 10:50-0400 Systolic blood pressure 122 mm[Hg] Joleen Rachana PLANER SETUP 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 Work Phone: [facility] 10-13-2023 08:50-0400 Body height 167 cm Joleen Rachana PLANER SETUP 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 Work Phone: [facility] 10-13-2023 08:50-0400 Body mass index (BMI) [Ratio] 28.95 kg/m2 Joleen Rachana PLANER SETUP 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 Work Phone: [facility] 10-13-2023 08:50-0400 Body weight 80.74 kg Joleen Rachana PLANER SETUP 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 Work Phone: [facility] 10-13-2023 08:50-0400 Diastolic blood pressure 74 mm[Hg] Joleen Rachana PLANER SETUP 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 Work Phone: [facility] 10-13-2023 08:50-0400 Systolic blood pressure 122 mm[Hg] Joleen Nicasio PLANER SETUP 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 Work Phone: [facility] 10-07-2022 08:36-0400 Body height 165.3 cm Joleen Nicasio PLANER SETUP 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 Work Phone: [facility] 10-07-2022 08:36-0400 Body weight 76.3 kg Joleen Nicasio PLANER SETUP 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 Work Phone: [facility] 10-07-2022 08:36-0400 Diastolic blood pressure 70 mm[Hg] Joleen Nicasio PLANER SETUP 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 Work Phone: [facility] 10-07-2022 08:36-0400 Systolic blood pressure 122 mm[Hg] Joleen Nicasio PLANER SETUP 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 Work Phone: [facility] 02-22-2022 15:19-0400 Body temperature 97.9 [degF] Dr. Kunal Cadena Work Phone: [facility] Work Phone: 02-22-2022 15:19-0400 Diastolic blood pressure 68 mm[Hg] Dr. Kunal Cadena Work Phone: [facility] Work Phone: 02-22-2022 15:19-0400 Heart rate 79 /min Dr. Kunal Cadena Work Phone: [facility] Work Phone: 02-22-2022 15:19-0400 Respiratory rate 16 /min Dr. uKnal Cadena Work Phone: [facility] Work Phone: 02-22-2022 15:19-0400 SaO2% (BldA) [Mass fraction] 98 % Dr. Kunal Cadena Work Phone: [facility] Work Phone: 02-22-2022 15:19-0400 Systolic blood pressure 135 mm[Hg] Dr. Kunal Cadena Work Phone: [facility] Work Phone: 02-22-2022 10:18-0400 Body height 165.[address] Kunal Cadena Work Phone: [facility] Work Phone: 02-22-2022 10:18-0400 Body mass index (BMI) [Ratio] 27.6 kg/m2 Dr. Kunal Cadena Work Phone: [facility] Work Phone: 02-22-2022 10:18-0400 Body weight 75.[address] Kunal Cadena Work Phone: [facility] Work Phone: 01-17-2022 08:07-0400 Body temperature 98.4 [degF] Dr. Kunal Cadena Work Phone: [facility] Work Phone: 01-17-2022 08:07-0400 Diastolic blood pressure 72 mm[Hg] Dr. Kunal Cadena Work Phone: [facility] Work Phone: 01-17-2022 08:07-0400 Heart rate 74 /min Dr. Kunal Cadena Work Phone: [facility] Work Phone: 01-17-2022 08:07-0400 Respiratory rate 16 /min Dr. Kunal Cadena Work Phone: [facility] Work Phone: 01-17-2022 08:07-0400 SaO2% (BldA) [Mass fraction] 95 % Dr. Kunal Cadena Work Phone: [facility] Work Phone: 01-17-2022 08:07-0400 Systolic blood pressure 118 mm[Hg] Dr. Kunal Cadena Work Phone: [facility] Work Phone: 01-17-2022 06:40-0400 Body height 165.[address] Kunal Cadena Work Phone: [facility] Work Phone: 01-17-2022 06:40-0400 Body mass index (BMI) [Ratio] 27.5 kg/m2 Dr. Kunal Cadena Work Phone: [facility] Work Phone: 01-17-2022 06:40-0400 Body weight [address] Kunal Cadena Work Phone: [facility] Work Phone: 12-10-2021 10:12-0400 Body height 165.[address] Kunal Cadena Work Phone: [facility] Work Phone: 12-10-2021 10:12-0400 Body mass index (BMI) [Ratio] 29.3 kg/m2 Dr. Kunal Cadena Work Phone: [facility] Work Phone: 12-10-2021 10:12-0400 Body temperature 98.2 [degF] Dr. Kunal Cadena Work Phone: [facility] Work Phone: 12-10-2021 10:12-0400 Body weight [address] Kunal Cadena Work Phone: [facility] Work Phone: 12-10-2021 10:12-0400 Diastolic blood pressure 79 mm[Hg] Dr. Kunal Cadena Work Phone: [facility] Work Phone: 12-10-2021 10:12-0400 Heart rate 72 /min Dr. Kunal Cadena Work Phone: [facility] Work Phone: 12-10-2021 10:12-0400 Respiratory rate 16 /min Dr. Kunal Cadena Work Phone: [facility] Work Phone: 12-10-2021 10:12-0400 SaO2% (BldA) [Mass fraction] 98 % Dr. Kunal Cadena Work Phone: [facility] Work Phone: 12-10-2021 10:12-0400 Systolic blood pressure 147 mm[Hg] Dr. Kunal Cadena Work Phone: [facility] Work Phone: 04-15-2020 22:22-0500 SaO2% (BldA) [Mass fraction] 95 % DR JAXSON ESCUDERO [facility] Comment on above: Performed By: #### [id number] #### [facility],[address] [place] [address] Encounters Encounter Date Encounter Type Care Provider Facility Start: 11-28-2024 ambulatory Guido Aguayo Facility:[facility] Start: 10-30-2024 End: 10-30-2024 ambulatory Guido Aguayo MD Work Phone: [facility] Work Phone: Start: 10-30-2024 End: 10-30-2024 Patient encounter procedure Junaid Lott SANDAL PARTS ASSEMBLER-C [facility] Work Phone: Start: 10-30-2024 End: 10-30-2024 ambulatory Junaid Lott NP Facility:[facility] Start: 10-14-2024 End: 10-14-2024 Patient encounter procedure Joleen Reich APRN.TELEGRAPH OFFICE MANAGER Work Phone: OB/Gynecology Comment on above: Encounter for gyneco logical examination (general) (routine) without abnormal findings (Primary Dx); Encounter for screening mammogram for breast cancer Start: 10-14-2024 End: 10-14-2024 Patient encounter status Joleen Reich APRN.TELEGRAPH OFFICE MANAGER Work Phone: [facility] Start: 10-14-2024 Encounter for gynecological examination (general) (routine) without abnormal findings JOLENE REICH [facility] Start: 10-14-2024 End: 10-14-2024 ambulatory JOLEEN REICH Facility:[facility] Start: 10-14-2024 End: 10-14-2024 [facility] encounter [facility] Start: 10-14-2024 End: 10-14-2024 Subsequent hospital visit by physician [facility] Comment on above: Encounter for gyneco logical examination (general) (routine) without abnormal findings [Z01.419] Start: 10-13-2023 Documentation procedure Mammog micheal Coordinator [facility] Department Start: 10-13-2023 Letter encounter Mammography Coordinator [facility] Department Start: 10-13-2023 End: 10-13-2023 Patient encounter procedure Joleen Reich APRN.CNP Work Phone: OB/Gynecology Comment on above: Encounter for gyneco logical examination (general) (routine) without abnormal findings (Primary Dx); Screening for malignant neoplasm of cervix; Encounter for screening for human papillomavirus (HPV); Encounter for screening mammogram for malignant neoplasm of breast Start: 10-13-2023 End: 10-13-2023 Patient encounter status Joleen Reich APRN.CNP Work Phone: [facility] Start: 10-13-2023 End: 10-13-2023 Subsequent hospital visit by physician [facility] M[facility] Comment on above: Encounter for screen ing mammogram for breast cancer [Z12.31] Start: 10-02-2023 End: 10-02-2023 ambulatory [facility] Work Phone: Start: 10-02-2023 End: 10-02-2023 Patient encounter procedure [facility] Work Phone: Start: 10-07-2022 Documentation procedure Mammog micheal Coordinator [facility] Start: 10-07-2022 Letter encounter Mammography Coordinator [facility] Department Start: 10-07-2022 End: 10-07-2022 Patient encounter procedure Joleen Reich APRN.CNP Work Phone: OB/Gynecology Comment on above: Encounter for gyneco logical examination (general) (routine) without abnormal findings (Primary Dx); Encounter for screening mammogram for breast cancer; Lichen sclerosus et atrophicus Start: 10-07-2022 End: 10-07-2022 Patient encounter status Joleen Reich APRN.CNP Work Phone: OB/Gynecology Start: 06-21-2022 End: 06-21-2022 ambulatory DO Licha M Shazia Work Phone: [facility] Work Phone: Start: 06-21-2022 End: 06-21-2022 Patient encounter procedure DO Licha Johnsonnger Work Phone: [facility] Start: 03-07-2022 End: 03-07-2022 Patient encounter procedure DO Licha Shazia Work Phone: [facility] Start: 02-22-2022 Non-patient / Non-visit Dr. Margy Cadena Work Phone: [facility] Start: 02-22-2022 End: 02-22-2022 Admission to same day surgery center [facility]unal [facility] Start: 02-22-2022 End: 02-22-[address] Kunal Cadena Work Phone: [facility] Work Phone: Start: 01-17-2022 Non-patient / Non-visit Dr. Margy Cadena Work Phone: [facility] Start: 01-17-2022 End: 01-17-2022 Admission to same day surgery center Dr. Kunal Cadena Work Phone: [facility]-End[facility] Start: 01-10-2022 End: 01-10-[address] Kunal Cadena Work Phone: [facility] Start: 12-31-2021 End: 12-31-[address] Kunal Cadena Work Phone: [facility]-Nuclear Medicine, [facility] Start: 12-24-2021 End: 12-24-[address] Kunal Cadean Work Phone: [facility] Start: 12-10-2021 End: 12-10-[address] Kunal Cadena Work Phone: [facility] Start: 12-03-2021 End: 12-03-2021 Patient encounter procedure [facility] Start: 02-10-2021 End: 02-10-[address] JAXSON ESCUDERO [facility] Start: 09-03-2020 End: 09-03-[address] JAXSON Bennett KENA [facility] Start: 05-30-2020 End: 05-30-2020 Emergency department patient visit DR JAXSON Bennett [facility] Start: 04-15-2020 End: 04-16-2020 Evaluation and management of inpatient [facility] Start: 04-06-2020 End: 04-07-[address] JAXSON Bennett KENA [facility] Procedures Date Procedure Procedure Detail Performing Clinician Start: 10-14-2024 Screening digital breast tomosynthesis bi Joleen Reich APRN.TELEGRAPH OFFICE MANAGER Work Phone: Start: 10-07-2022 Mammography Mammography Coordinator Start: 02-22-2022 Total cholecystectomy and exploration of common bile duct Dr. Kunal Cadena Work Phone: Start: 02-22-[address] Kunal Cadena Work Phone: Start: 01-17-[address] Kunal nice Work Phone: Start: 12-31-2021 Radionuclide imaging of liver and/or biliary tract using radioactive isotope Dr. Kunal Cadena Work Phone: Start: 12-03-2021 Ultrasonography of abdomen Start: 07-26-2021 Mammography Joleen Reich APRN.TELEGRAPH OFFICE MANAGER Work Phone: Start: 06-25-2016 Lipid 1996 panel - Serum or Plasma Joleen Reich APRN.CNP Work Phone: Start: 07-27-2015 Colonoscopy Joleen Reich APRN.CNP Work Phone: History of cholecystectomy S/P l aparoscopic cholecystectomy DO Licha Mccray Work Phone: Plan of Treatment Date Care Activity Detail Author Start: 01-25-2036 RSV Vaccine (1 - 1-d ose 75+ series) RSV Vaccine (1 - 1-dose 75+ series) [facility] Start: 10-12-2028 Screening for malign ant neoplasm of cervix Cervical Cancer Screening [facility] Start: 10-20-2025 End: 10-20-2025 Patient encounter procedure Mammogram Comment on above: Encounter for gyneco logical examination (general) (routine) without abnormal findings [Z01.419]; Encounter for screening mammogram for breast cancer [Z12.31] Annual Start: 10-14-2025 Screening for malign ant neoplasm of breast Mammogram Screening [facility] Start: 07-27-2025 Colonoscopy COLONOSCOPY [facility] Start: 07-27-2025 COLORECTAL CANCER SCREENING COLORECTAL CANCER SCREENING [facility] Start: 07-27-2025 Screening for malign ant neoplasm of colon [facility] Start: 10-14-2024 End: 10-14-2024 Patient encounter procedure 10/14/2024 11:30 AM EDT Office Visit OB/Gynecology [address] [place] [address] Joleen Reich APRN.CNP [address] [place] [address] Annual OB/Gynecology Comment on above: Annual Start: 10-14-2024 End: 10-14-2024 Patient encounter procedure 10/14/2024 10:10 AM EDT Appointment Mammogram [address] [place] [address] Encounter for gynecological examination (general) (routine) without abnormal findings [Z01.419] Mammogram Comment on above: Encounter for gyneco logical examination (general) (routine) without abnormal findings [Z01.419] Start: 10-12-2024 Screening for malign ant neoplasm of breast Mammogram Screening [facility] Start: 03-15-2024 HPV TESTING HPV TESTING [facility] Start: 03-15-2024 PAP TESTING PAP TESTING [facility] Start: 03-15-2024 Screening for malign ant neoplasm of cervix [facility] Start: 02-04-2024 Covid-19 Vaccine ( season) Covid-19 Vaccine () [facility] Start: 10-08-2023 Mammography MAMMOGRAM [facility] Start: 10-08-2023 Screening for malign ant neoplasm of breast Mammogram Screening [facility] Start: 06-05-2023 Behavioral Health Screening Behavioral Health Screening [facility] Start: 02-03-2023 Covid-19 Vaccine () Covid-19 Vaccine () [facility] Start: 07-26-2022 Mammography MAMMOGRAM [facility] Start: 06-05-2022 DEPRESSION ASSESSMENT DEPRESSION ASS ESSMENT [facility] Start: 02-22-2022 Patient discharge [facility] Work Phone: Start: 02-22-2022 Cholangiogram Cholangiogram/ O R,Initial [facility] Work Phone: Start: 02-22-2022 XR Biliary ducts and Gallbladder Views W contrast IV [facility] Work Phone: Start: 01-17-2022 Egd transoral biopsy single/multiple EGD BIOPSY SINGLE/MULTIPLE [facility] Work Phone: Start: 01-17-2022 [facility] Start: 08-13-2021 COVID-19 VACCINE (3 - Booster) COVID-19 VACCINE (3 - Booster) [facility] Start: 06-25-2021 Lipid panel Lipid Screening [facility] Start: 06-25-2021 LIPID SCREEN LIPID SCREEN [facility] Start: 2021 RSV Vaccine (1 - 1-d ose 60+ series) RSV Vaccine (1 - 1-dose 60+ series) [facility] Start: 06-25-2019 DIABETES SCREEN DIABETES SCREEN [facility] Start: 06-25-2019 Diabetes Screening Diabetes Screenin g [facility] Start: 01-26-2019 Urine microalbumin profile DTaP,Tdap,Td Vaccine (1 - Tdap) [facility] Start: 09-22-2013 FECAL OCCULT BLOOD FECAL OCCULT BLOO D [facility] Start: 09-22-2013 Screening for malign ant neoplasm of colon Fecal Occult Blood [facility] Start: 2011 Pneumococcal Vaccine : 50+ (1 of 1 - PCV) Pneumococcal Vaccine: 50+ (1 of 1 - PCV) [facility] Start: 2011 SHINGRIX VACCINE (1 of 2) SHINGRIX VACCINE (1 of 2) [facility] [facility]: [facility] COLOGUARD (FIT-DNA) COLOGUARD (FIT-D NA) [facility] Start: [address] COLONOGRAPHY [facility] Start: 2006 Screening for malign ant neoplasm of colon [facility] Start: 2006 SIGMOIDOSCOPY SIGMOIDOSCOPY [facility] Start: 01-25-1980 Urine microalbumin profile DTAP,TDAP,TD (1 - Tdap) [facility] Start: 1979 Anxiety Screening Anxiety Screening [facility] Start: 1979 Depression Screening Depression Scre [facility] Start: 1979 HEPATITIS C SCREENING HEPATITIS C [facility] Start: 1979 Hepatitis C screening Hepatitis C [facility] Start: 1979 HIV SCREENING HIV SCREENING [facility] Start: 1979 HIV screening HIV Screening [facility] End: 11-11-2024 DBT Breast - bilateral screening [facility] Work Phone: Comment on above: 1 Occurrences starti ng 10/13/2023 until 11/11/2024 DBT Breast - bilater al screening ASAEL SCREENING [facility] Radiology Routine Encounter for screening mammogram for breast cancer 10/13/2023 8:50 AM EDT [facility] Work Phone: End: 11-13-2025 DBT Breast - bilateral screening ASAEL SCREENING [facility] Radiology Routine Encounter for gynecological examination (general) (routine) without abnormal findings Encounter for screening mammogram for breast cancer 1 Occurrences starting 10/14/2024 until 11/13/2025 [facility] Work Phone: Comment on above: 1 Occurrences starti ng 10/14/2024 until 11/13/2025 End: 11-06-2023 ASAEL SCREENING W LAZARA ASAEL SCREENING [facility] Radiology Routine Encounter for screening mammogram for breast cancer 1 Occurrences starting 10/07/2022 until 11/06/2023 [facility] Work Phone: Comment on above: 1 Occurrences starti ng 10/07/2022 until 11/06/2023 PAP TEST PAP TEST Lab [facility] Screening for malignant neoplasm of cervix Encounter for screening for human papillomavirus (HPV) 10/13/2023 9:19 AM EDT [facility] Patient referral [facility] Work Phone: Immunizations Immunization Date Immunization Notes Care Provider Carlitos larry 03-07-2024 influenza, seasonal, injectable, preservative free Joleen Rachana PLANER SETUP 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 Work Phone: [facility] 03-23-2023 influenza, injectabl e, quadrivalent, preservative free Joleen Nicasio PLANER SETUP 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 Work Phone: [facility] 03-22-2022 Influenza, injectabl e, Madin Ashley Canine Kidney, preservative free, quadrivalent Joleen Rachana PLANER SETUP 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 Work Phone: [facility] 09-03-2021 zoster vaccine recombinant Joleen Nicasio PLANER SETUP 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 Work Phone: [facility] 06-18-2021 COVID-19 original vaccine, full dose, monovalent (MODERNA) Joleen Nicasio PLANER SETUP 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 Work Phone: [facility] Work Phone: 06-02-2021 zoster vaccine recombinant Joleen Rachana PLANER SETUP 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 Work Phone: [facility] 03-04-2021 influenza, injectabl e, quadrivalent, contains preservative Joleen Rachana PLANER SETUP 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 Work Phone: [facility] Work Phone: 09-03-2020 COVID-19 vaccine (AMANDO) Joleen Rachana PLANER SETUP 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 Work Phone: [facility] 09-03-2020 COVID-19 vaccine, unspecified formulation Joleen Nicasio PLANER SETUP OPERATOR.[facility] Work Phone: [facility] Work Phone: 02-21-2020 Influenza, injectabl e, Madin [place] Canine Kidney, preservative free, quadrivalent Joleen Rachana PLANER SETUP 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 Work Phone: [facility] 01-25-2019 tetanus and diphther ia toxoids, adsorbed, preservative free, for adult use (5 Lf of tetanus toxoid and 2 Lf of diphtheria toxoid) Joleen Nicasio PLANER SETUP 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 Work Phone: [facility] 10-24-2013 measles, mumps and rubella virus vaccine Joleen Rachana PLANER SETUP 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 Work Phone: [facility] 05-09-2013 hepatitis A vaccine, adult dosage Joleen Rachana PLANER SETUP 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 Work Phone: [facility] 05-09-2013 hepatitis B vaccine, adult dosage Joleen Rachana PLANER SETUP 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 Work Phone: [facility] 11-27-2012 hepatitis B vaccine, adult dosage Joleen Nicasio PLANER SETUP 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 Work Phone: [facility] 10-16-2012 hepatitis A vaccine, adult dosage Joleen Nicasio PLANER SETUP 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 Work Phone: [facility] 10-16-2012 hepatitis B vaccine, adult dosage Joleen Rachana PLANER SETUP OPERATOR.[facility] Work Phone: [facility] Payers Date Payer Category Payer Self-pay [id number] 2023 [facility] PPO [id number] 2023 Unknown [id number] 2019 Unknown [id number] 1961 Unknown [id number] 1961 Unknown [id number] 1961 Unknown [id number] 1961 Unknown [id number] 1961 Unknown [id number] Unknown [id number] Unknown [id number] Unknown [id number] Unknown [id number] Social History Date Type Detail Facility Start: 04-18-2019 End: 02-09-2022 Tobacco smoking status SCIS Unknown if ever smoked [facility] Start: 04-18-2019 Non-smoker [facility] Start: 1960 Sex Assigned At Female [facility] Start: 02-09-2022 End: 10-07-2022 Tobacco smoking status NHIS Never smoked tobacco [facility] Work Phone: Start: 10-07-2022 Tobacco use and exposure Smokeless tobacco non-user [facility] Work Phone: Start: 10-07-2022 End: 10-14-2024 Alcohol intake Current non-drinker of alcohol (finding) [facility] Start: 1960 Sex Assigned At Not on file [facility] Start: 10-07-2022 End: 10-13-2023 History of Social function [facility] Start: 10-07-2022 End: 10-13-2023 Tobacco use panel [facility] National Score (1-100), lower number is lower risk 48 [facility] Medical Equipment Procedure Code Equipment Code Equipment Original Text Equipment Identifier Dates Total cholecystectomy with exploration of common bile duct Ligation clip, synthetic polymer, non-bioabsorbable [id number] [facility] Start: 02-22-2022 Goals Date Patient Goal Desired Activity /State Functional Status Date Assessment Result Facility 01-03-2014 Are you deaf, or do you have serious difficulty hearing No 01/03/2014 2:01 PM lCarisse Ruvalcaba MA No [facility] 01-03-2014 Are you blind, or do you have serious difficulty seeing, even when wearing glasses No 01/03/2014 2:01 PM Clarisse Ruvalcaba MA No [facility] 01-03-2014 Do you have serious difficulty walking or climbing stairs No 01/03/2014 2:01 PM Clarisse Ruvalcaba MA No [facility] 01-03-2014 Do you have difficul ty dressing or bathing No 01/03/2014 2:01 PM Clarisse Ruvalcaba MA No [facility] 01-03-2014 Because of a physica l, mental, or emotional condition, do you have difficulty doing errands alone such as visiting a physician's office or shopping No 01/03/2014 2:01 PM Clarisse Ruvalcaba MA No [facility] Mental Status Date Assessment Result Facility 02-22-2022 Cognitive function Voice/Name [facility] Work Phone: 01-17-2022 Cognitive function Voice/Name [facility] Work Phone: 01-03-2014 Because of a physica l, mental, or emotional condition, do you have serious difficulty concentrating, remembering, or making decisions No 01/03/2014 2:01 PM EDT Clarisse Tran MA No [facility] Clinical Notes 04-20-2020 to 10-14-2024 Joleen Reich APRN.TELEGRAPH OFFICE MANAGER - 10/14/2024 10:27 AM Berenice Preciado, Mammo Tech - 10/14/2024 10:10 AM Eben Fitzgerald, Mammography - 10/13/2023 1:45 PM EDT Note Date & Type Note Facility 10-14-2024 Note HNO ID: [id number] Author: JOLEEN REICH APRN.TELEGRAPH OFFICE MANAGER Service: ? Author Type: Nurse Practitioner Type: Progress Notes Filed: 10/14/2024 11:05 Note Text: Patient declined tour operatorRonald Morrison is a 64 year old who presents for an annual gynecologic exam without complaints. Postmenopausal: Postmenopausal: Yes since age 57. Last menses 2016. HRT use: No. Last Pap: 10/13/23 normal HPV: 10/13/23 negative History of abnormal pap: No Last mammogram: 2024 today History of abnormal mammogram: No Sexually active: Yes OB History Gravida3 Para3 Term3 Preterm0 AB0 Living3 SAB0 IAB0 Ectopic0 Multiple0 Live Births0 Comment: x 3 FAMILY HISTORY Problem Relation Age of Onset Breast Cancer Mother 60 Heart Mother High Cholesterol/[place] Hypertension Mother Prostate Cancer Father Heart Father High Cholesterol Coronary Artery Disease Father Bypass surgery Heart Brother heart surgery 2010 No Known Problems Daughter No Known Problems Son No Known Problems Son SOCIAL HISTORY Social History Tobacco Use Smoking status: Never Smokeless tobacco: Never Vaping Use Vaping status: Never Used Substance Use Topics Alcohol use: No Drug use: No REVIEW OF SYSTEMS Abdomen: No abdominal pain, nausea, vomiting, diarrhea, or constipation. No bloating, early satiety, indigestion, or increased flatulence. Bladder: No dysuria, gross hematuria, urinary frequency, urinary urgency, or incontinence Breast: No breast lumps, nipple d/c, overlying skin changes, redness or skin retraction Allergies and current medication updated:Yes SENSITIVE EXAM: The sensitive examination was discussed with the Patient or Patient's Authorized System Operator. As applicable, any other physician, advance practice provider, medical student, or other health professional student that will be observing or involved in the sensitive examination for educational or training purposes was discussed with the Patient or Authorized System Operator. The Patient or Authorized System Operator has agreed to proceed with the sensitive examination. (Sensitive examination includes inspection and/or palpation of the breasts, pelvis, prostate and anorectal regions). EXAM: BP 122/74 Ht 5' 4.803 (1.65m) Wt 182 lb (82.6kg) LMP 02/28/2019 BMI 30.47 kg/(m2). GENERAL: pleasant, female in no apparent distress HEENT: Normocephalic, atraumatic, mucus membranes moist, and no lesions DERMATOLOGY: Normal, without lesions, non-icteric, and non-hirsute BREAST: soft, non-tender, symmetric, no dominant mass, normal nipple-areolar complex, no lymphadenopathy, and no nipple discharge CHEST: Normal inspiratory effort ABDOMEN: soft, non-tender, and no masses PELVIC: external genitalia normal, normal Bartholin's glands, urethra, [place]'s glands, no vulvar lesions, no cervical lesions, physiologic discharge present, normal appearing perineal body and perianal region, atrophic changes BIMANUAL: uterus normal size, shape and consistency, no adnexal masses, and non-tender RECTOVAGINAL: deferred. NEURO: alert and oriented x3,exam grossly non-focal EXTREMITIES: normal ASSESSMENT/PLAN: 1) Health maintenance: Pap/HPV up to date. Mammogram ordered Mammogram up to date Nutrition, exercise and routine health maintenance exams reviewed. Calcium/Vitamin D supplementation information provided. Colon cancer screening: up to date with screening 2) Follow up one year or sooner as needed Joleen Reich APRN.[facility] 10-14-2024 History of Presen t illness Narrative Patient declined tour operatorRonald Morrison is a 64 year old who presents for an annual gynecologic exam without complaints. Postmenopausal: Postmenopausal: Yes since age 57. Last menses 2017. HRT use: No. Last Pap: 10/13/23 normal HPV: 10/13/23 negative History of abnormal pap: No Last mammogram: 2024 today History of abnormal mammogram: No Sexually active: Yes OB History Gravida3 Para3 Term3 Preterm0 AB0 Living3 SAB0 IAB0 Ectopic0 Multiple0 Live Births0 Comment: x 3 FAMILY HISTORY Problem Relation Age of Onset Breast Cancer Mother 60 Heart Mother High Cholesterol/[place] Hypertension Mother Prostate Cancer Father Heart Father High Cholesterol Coronary Artery Disease Father Bypass surgery Heart Brother heart surgery 2010 No Known Problems Daughter No Known Problems Son No Known Problems Son SOCIAL HISTORY Social History Tobacco Use Smoking status: Never Smokeless tobacco: Never Vaping Use Vaping status: Never Used Substance Use Topics Alcohol use: No Drug use: No REVIEW OF SYSTEMS Abdomen: No abdominal pain, nausea, vomiting, diarrhea, or constipation. No bloating, early satiety, indigestion, or increased flatulence. Bladder: No dysuria, gross hematuria, urinary frequency, urinary urgency, or incontinence Breast: No breast lumps, nipple d/c, overlying skin changes, redness or skin retraction Allergies and current medication updated:Yes SENSITIVE EXAM: The sensitive examination was discussed with the Patient or Patient's Authorized System Operator. As applicable, any other physician, advance practice provider, medical student, or other health professional student that will be observing or involved in the sensitive examination for educational or training purposes was discussed with the Patient or Authorized System Operator. The Patient or Authorized System Operator has agreed to proceed with the sensitive examination. (Sensitive examination includes inspection and/or palpation of the breasts, pelvis, prostate and anorectal regions). EXAM: BP 122/74 Ht 5' 4.803 (1.65m) Wt 182 lb (82.6kg) LMP 02/28/2019 BMI 30.47 kg/(m^2). GENERAL: pleasant, female in no apparent distress HEENT: Normocephalic, atraumatic, mucus membranes moist, and no lesions DERMATOLOGY: Normal, without lesions, non-icteric, and non-hirsute BREAST: soft, non-tender, symmetric, no dominant mass, normal nipple-areolar complex, no lymphadenopathy, and no nipple discharge CHEST: Normal inspiratory effort ABDOMEN: soft, non-tender, and no masses PELVIC: external genitalia normal, normal Bartholin's glands, urethra, [place]'s glands, no vulvar lesions, no cervical lesions, physiologic discharge present, normal appearing perineal body and perianal region, atrophic changes BIMANUAL: uterus normal size, shape and consistency, no adnexal masses, and non-tender RECTOVAGINAL: deferred. NEURO: alert and oriented x3,exam grossly non-focal EXTREMITIES: normal ASSESSMENT/PLAN: 1) Health maintenance: Pap/HPV up to date. Mammogram ordered Mammogram up to date Nutrition, exercise and routine health maintenance exams reviewed. Calcium/Vitamin D supplementation information provided. Colon cancer screening: up to date with screening 2) Follow up one year or sooner as needed Joleen Reich APRN.CNP documented in this encounter [facility] 10-14-2024 History of Presen t illness Narrative Radiology Service Progress Note PATIENT NAME: Tamiko Shearer DATE OF SERVICE: October 14, 2024 TIME: 10:32 AM PATIENT IDENTITY VERIFICATION COMPLETED USING TWO (2) IDENTIFIERS: Name and Date of confirmed by patient verbally. FALL SCREENING: Has the patient had 2 falls in the last year or 1 fall with injury or currently using an Ambulatory Assistive Device (Walker, Cane, Wheelchair, Crutches, etc.)? No PATIENT GENDER DATA: Assigned female at . status: : No status: NO. PATIENT RELEVANT IMPLANT DATA REVIEWED: Not Applicable PATIENT PRESENTS WITH AN IMPLANTABLE OR ATTACHED AMMONIA BOX OPERATOR: No RADIOLOGY DEPARTMENT: Mammography PERIPHERAL IV DATA: Not applicable SIGNED BY: Chapito Cordoba October 14, 2024 10:32 AM documented in this encounter [facility] 10-14-2024 Note HNO ID: [id number] Author: BERENICE KENDALL Mammo Tech Service: ? Author Type: Political Theory Professor Type: Progress Notes Filed: 10/14/2024 10:32 Note Text: Radiology Service Progress Note PATIENT NAME: Tamiko Shearer DATE OF SERVICE: October 14, 2024 TIME: 10:32 AM PATIENT IDENTITY VERIFICATION COMPLETED USING TWO (2) IDENTIFIERS: Name and Date of confirmed by patient verbally. FALL SCREENING: Has the patient had 2 falls in the last year or 1 fall with injury or currently using an Ambulatory Assistive Device (Walker, Cane, Wheelchair, Crutches, etc.)? No PATIENT GENDER DATA: Assigned female at . status: : No status: NO. PATIENT RELEVANT IMPLANT DATA REVIEWED: Not Applicable PATIENT PRESENTS WITH AN IMPLANTABLE OR ATTACHED AMMONIA BOX OPERATOR: No RADIOLOGY DEPARTMENT: Mammography PERIPHERAL IV DATA: Not applicable SIGNED BY: Berenice Kendall [employer] October 14, 2024 10:32 AM [facility] 10-13-2023 Note Formatting of this n ote might be different from the original. October 16, 2023 PID: [id number] Tamiko Shearer [id number] [place] [address] Dear Ms. Shearer, We are pleased to inform you that the results of your recent breast imaging exam on 10/13/2023 are normal. Your mammogram demonstrates that you have dense breast tissue, which could hide abnormalities. Dense breast tissue, in and of itself, is a relatively common condition. Therefore, this information is not provided to cause undue concern; rather, it is to raise your awareness and promote discussion with your health care provider regarding the presence of dense breast tissue in addition to other risk factors. Early detection of cancer is very important. We also understand recommendations regarding breast cancer screening are controversial. Please discuss with your primary care provider which strategy is best for you and whether a mammogram is right for you. Your imaging studies and report will be kept on file at [facility] as part of your permanent medical record and are available for your continuing care. Thank you for allowing us to help in meeting your health care needs. Sincerely, Dr. Morales Interpreting Radiologist [facility] (Normal over 40) [facility] 10-13-2023 Miscellaneous Notes October 16, 2023 PID: [id number] Tamiko Shearer [id number] [place] [address] Dear Ms. Shearer, We are pleased to inform you that the results of your recent breast imaging exam on 10/13/2023 are normal. Your mammogram demonstrates that you have dense breast tissue, which could hide abnormalities. Dense breast tissue, in and of itself, is a relatively common condition. Therefore, this information is not provided to cause undue concern; rather, it is to raise your awareness and promote discussion with your health care provider regarding the presence of dense breast tissue in addition to other risk factors. Early detection of cancer is very important. We also understand recommendations regarding breast cancer screening are controversial. Please discuss with your primary care provider which strategy is best for you and whether a mammogram is right for you. Your imaging studies and report will be kept on file at [facility] as part of your permanent medical record and are available for your continuing care. Thank you for allowing us to help in meeting your health care needs. Sincerely, Dr. Morales Interpreting Radiologist [facility] (Normal over 40) documented in this encounter [facility] 10-13-2023 History of Presen t illness Narrative Tamiko is a 63 year old who presents for an annual gynecologic exam without complaints. Postmenopausal: Postmenopausal: Yes since age 57. Last menses 2017. Seen in 2019 for D&C and polypectomy. No bleeding since last seenin 04/2019. HRT use: No. Last Pap: 03/20/2019 normal HPV: 03/19/2019 negative History of abnormal pap: No Last mammogram: 2023 today History of abnormal mammogram: No Sexually active: Yes Pain with intercourse: No Postcoital bleeding: No OB History T3 L3 SAB0 IAB0 Ectopic0 Multiple0 Live Births0 Comment: x 3 Coater Operator Insulation Board History LMP: 02/28/2019, Postmenopausal Age at Menarche: Age at First : Age at Menopause: Coater Operator Insulation Board History Comments: Sexual Activity: Yes; Male; Vasectomy Contraception: Vasectomy PAST MEDICAL HISTORY Diagnosis Date Lichen sclerosus NONE PAST SURGICAL HISTORY Procedure Laterality Date COLONOSCOPY FLX DX W/COLLJ SPEC WHEN PFRMD 07/27/15 Colonoscopy HYSTEROSCOPY 04/2019 D&C for PMB. 2 polyps noted. Benign pathology FAMILY HISTORY Problem Relation Age of Onset Breast Cancer Mother 60 Heart Mother High Cholesterol/[place] Hypertension Mother Prostate Cancer Father Heart Father High Cholesterol Coronary Artery Disease Father Bypass surgery No Known Problems Daughter No Known Problems Son No Known Problems Son Heart Brother heart surgery 2010 SOCIAL HISTORY Social History Tobacco Use Smoking status: Never Smokeless tobacco: Never Vaping Use Vaping Use: Never used Substance Use Topics Alcohol use: No Drug use: No REVIEW OF SYSTEMS Abdomen: No abdominal pain, nausea, vomiting, diarrhea, or constipation. No bloating, early satiety, indigestion, or increased flatulence. Bladder: No dysuria, gross hematuria, urinary frequency, urinary urgency, or incontinence Breast: No breast lumps, nipple d/c, overlying skin changes, redness or skin retraction Allergies and current medication updated:Yes EXAM: LMP 02/28/2019 GENERAL: pleasant, female in no apparent distress HEENT: Normocephalic, atraumatic, mucus membranes moist, and no lesions NECK: Supple, full range of motion, no adenopathy, and thyroid normal DERMATOLOGY: Normal, without lesions, non-icteric, and non-hirsute BREAST: soft, non-tender, symmetric, no dominant mass, normal nipple-areolar complex, no lymphadenopathy, and no nipple discharge CHEST: Normal inspiratory effort ABDOMEN: soft, non-tender, and no masses PELVIC: external genitalia normal, normal [place]tholin's glands, urethra, [place]'s glands, no vulvar lesions, no cervical lesions, physiologic discharge present, normal appearing perineal body and perianal region BIMANUAL: uterus normal size, shape and consistency, no adnexal masses, and non-tender RECTOVAGINAL: deferred. NEURO: alert and oriented x3,exam grossly non-focal EXTREMITIES: normal ASSESSMENT/PLAN: 1) Health maintenance: Pap done with HPV. Mammogram ordered Mammogram up to date Nutrition, exercise and routine health maintenance exams reviewed. Calcium/Vitamin D supplementation information provided. Colon cancer screening: up to date with screening 2) Follow up one year or sooner as needed Joleen Reich APRN.CNP documented in this encounter [facility] 10-13-2023 History of Presen t illness Narrative Radiology Service Progress Note PATIENT NAME: Tamiko Shearer DATE OF SERVICE: October 13, 2023 TIME: 8:50 AM PATIENT IDENTITY VERIFICATION COMPLETED USING TWO (2) IDENTIFIERS: Name and Date of confirmed by patient verbally. FALL SCREENING: Has the patient had 2 falls in the last year or 1 fall with injury or currently using an Ambulatory Assistive Device (Walker, Cane, Wheelchair, Crutches, etc.)? No PATIENT GENDER DATA: Female. status: : No status: NO. PATIENT RELEVANT IMPLANT DATA REVIEWED: Not Applicable PATIENT PRESENTS WITH AN IMPLANTABLE OR ATTACHED AMMONIA BOX OPERATOR: No RADIOLOGY DEPARTMENT: Mammography PERIPHERAL IV DATA: Not applicable SIGNED BY: Berenice Kendall [employer] October 13, 2023 8:50 AM documented in this encounter [facility] 10-07-2022 Miscellaneous Notes October 10, 2022 PID: [id number] Tamiko Romano Jeanne [id number] [place], [place] [id number] Dear Ms. Shearer, We are pleased to inform you that the results of your recent breast imaging exam on 10/07/2022 are normal. Your mammogram demonstrates that you have dense breast tissue, which could hide abnormalities. Dense breast tissue, in and of itself, is a relatively common condition. Therefore, this information is not provided to cause undue concern; rather, it is to raise your awareness and promote discussion with your health care provider regarding the presence of dense breast tissue in addition to other risk factors. Early detection of cancer is very important. We also understand recommendations regarding breast cancer screening are controversial. Please discuss with your primary care provider which strategy is best for you and whether a mammogram is right for you. Your imaging studies and report will be kept on file at [facility] as part of your permanent medical record and are available for your continuing care. Thank you for allowing us to help in meeting your health care needs. Sincerely, Dr. Chaudhari Interpreting Radiologist [facility] (Normal over 40) documented in this encounter [facility] 10-07-2022 History of Presen t illness Narrative Tamiko is a 62 year old who presents for an annual gynecologic exam without complaints. Postmenopausal: Postmenopausal: Yes since age 57. Last menses 2017. Seen in 2019 for D&C and polypectomy. No bleeding since last seenin 04/2019. HRT use: No. Last Pap: 03/20/2019 normal HPV: 03/19/2019 negative History of abnormal pap: No Last mammogram: 2022 pending History of abnormal mammogram: No Sexually active: Yes Pain with intercourse: No Postcoital bleeding: No Vaginal dryness: Yes OB History T3 L3 SAB0 IAB0 Ectopic0 Multiple0 Live Births0 Comment: x 3 Coater Operator Insulation Board History LMP: 02/28/2019, Postmenopausal Age at Menarche: Age at First : Age at Menopause: Coater Operator Insulation Board History Comments: Sexual Activity: Yes; Male; Vasectomy Contraception: Vasectomy PAST MEDICAL HISTORY Diagnosis Date Lichen sclerosus NONE PAST SURGICAL HISTORY Procedure Laterality Date COLONOSCOPY FLX DX W/COLLJ SPEC WHEN PFRMD 07/27/15 Colonoscopy HYSTEROSCOPY 04/2019 D&C for PMB. 2 polyps noted. Benign pathology FAMILY HISTORY Problem Relation Age of Onset Breast Cancer Mother 60 Heart Mother High Cholesterol/[place] Hypertension Mother Prostate Cancer Father Heart Father High Cholesterol Coronary Artery Disease Father Bypass surgery No Known Problems Daughter No Known Problems Son No Known Problems Son Heart Brother heart surgery 2011 SOCIAL HISTORY Social History Tobacco Use Smoking status: Never Smokeless tobacco: Never Vaping Use Vaping Use: Never used Substance Use Topics Alcohol use: No Drug use: No REVIEW OF SYSTEMS Abdomen: No abdominal pain, nausea, vomiting, diarrhea, or constipation. No bloating, early satiety, indigestion, or increased flatulence. Bladder: No dysuria, gross hematuria, urinary frequency, urinary urgency, or incontinence Breast: No breast lumps, nipple d/c, overlying skin changes, redness or skin retraction Allergies and current medication updated:Yes EXAM: LMP 02/28/2019 GENERAL: pleasant, female in no apparent distress HEENT: Normocephalic, atraumatic, mucus membranes moist, and no lesions NECK: Supple, full range of motion, no adenopathy, and thyroid normal DERMATOLOGY: Normal, without lesions, non-icteric, and non-hirsute BREAST: soft, non-tender, symmetric, no dominant mass, normal nipple-areolar complex, no lymphadenopathy, and no nipple discharge CHEST: Normal inspiratory effort ABDOMEN: soft, non-tender, and no masses PELVIC: external genitalia normal, normal Bartholin's glands, urethra, [place]'s glands, no vulvar lesions, no cervical lesions, good vaginal support, physiologic discharge present, normal appearing perineal body and perianal region, atrophic changes BIMANUAL: uterus normal size, shape and consistency, no adnexal masses, and non-tender RECTOVAGINAL: deferred. NEURO: alert and oriented x3,exam grossly non-focal EXTREMITIES: normal ASSESSMENT/PLAN: 1) Health maintenance: Pap/HPV up to date. Mammogram up to date Nutrition, exercise and routine health maintenance exams reviewed. Calcium/Vitamin D supplementation information provided. Colon cancer screening: up to date with screening 2) Follow up one year or sooner as needed Joleen Reich APRN.MARCE documented in this encounter [facility] 04-20-2020 Note [facility] HISTORY & PHYSICAL NAME ACCOUNT SEX AGE ADMIT DISCHARGE PT MED. RECORD# NUMBER DATE DATE TYPE JEANNE, [id number] F 60 04/15/20 1 TAMIKO [id number] ROOM: [facility] DATE OF : 62 DICTATING PHYSICIAN: Kym Louis HISTORY & PHYSICAL/DISCHARGE SUMMARY CHIEF COMPLAINT: Tachycardia. HISTORY OF PRESENT ILLNESS: This is a 60-year-old female who stated that she started with COVID-19 symptoms on March 28, 2020, initially with body aches, chills, and a low-grade fever. She quarantined at home and got tested on April 06, 2020, due to recurrent fever. She was given an inhaler for possible bronchitis. She only used it a few times. She was feeling better, and then she started to have another fever. She felt worse. She started with body aches again. She put on her Fitbit. Her heart rate was initially in the 90s, and then yesterday while walking around after lunch with minimal activity her heart rate was up to 120, and she came to the Emergency Room for further evaluation. Initially in the Emergency Room she was hypertensive, tachycardic and afebrile. Oxygen saturation was 98% on room air, and then it did drop in the Emergency Room to 91%. Chest x-ray was completed with right lower lobe infiltrate. Cultures were obtained. She was started on antibiotics, and CT scan was also completed. She was initially admitted for COVID-19 with ongoing symptoms and pneumonia. Upon evaluation this morning, she is requesting to go home. She does not want any further treatment with remdesivir or plasma. She feels much better. Her heart rate is better. She is afebrile and off oxygen. PAST MEDICAL HISTORY: No chronic medical problems. PAST SURGICAL HISTORY: Uterine cysts which were benign and removed. MEDICATIONS: Albuterol inhaler every 4 hours p.r.n. ALLERGIES: Macrobid. FAMILY HISTORY: Mother had breast cancer and then with lung cancer. She was not a smoker, but she was exposed to secondhand smoke. Father is alive at age 89 and healthy. 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 She is mainly isolated by herself. She does not smoke nor drink alcohol. REVIEW OF SYSTEMS: She did have a headache, body aches, low-grade fevers and Page 1 of 3 TAMIKO SHEARER History & Physical TAMIKO SHEARER :1960 chills. These have all improved. She is able to taste food. No nausea or vomiting. Today, no shortness of breath or fever. Heart rate has improved. PHYSICAL EXAMINATION GENERAL APPEARANCE: The patient was sitting up in bed in no acute distress. She is an alert, pleasant, cooperative, well-nourished, well-developed, overweight female. VITAL SIGNS: Blood pressure is 142/78, heart rate 93, respirations 17, temperature 98.4, and oxygen saturation 93% on room air. Weight is 174 pounds. BMI is 29.09. HEENT: HEENT is unremarkable. NECK: Neck is supple. No JVD. LUNGS: Normal respiratory effort, equal lung expansion, and clear to auscultation bilaterally. HEART: Heart is a regular rate and rhythm. ABDOMEN: Positive bowel sounds, soft and nontender. EXTREMITIES: Free of pitting edema. NEUROLOGIC: She is alert and oriented. Mood, affect and memory are within normal limits. Speech is clear. DIAGNOSTIC DATA: CBC is unremarkable on admission. D-dimer is 253. INR is 1. CRP was initially 1 and came down to 0.8. Glucose was elevated at 179. It was 153 this morning. Troponin is within normal limits. ABGs show a pH of 7.39, pCO2 of 41, pO2 of 74, and bicarbonate of 25 on admission. Chest x-ray reveals a right lower lobe pneumonia. IMPRESSIONS/PLAN: 1. COVID-19 infection. It appears she has improved. Her symptoms started on March 28, 2020. Initially she was admitted with recommendations for remdesivir and plasma. Her symptoms are minimal and improved. We will discontinue the remdesivir and plasma at this point, and she will go home. No further quarantine is needed. She will go back to work when her weakness improves. She can gauge that herself. We would recommend continuing famotidine 20 mg twice daily for 2 weeks, zinc 50 mg daily for 2 weeks, and vitamin D3 2000 units daily for 2 weeks. We will also send her home on prednisone 40 mg daily for 6 days. She did receive a dose of steroids in the hospital, and we will send her home on Tylenol as needed with Delsym for cough. 2. Acute community-acquired pneumonia. The chest x-ray does not look like a Page 2 of 3 TAMIKO SHEARER History & Physical TAMIKO SHEARER :1960 COVID-19 related infection. She is already improved. Blood cultures are pending. She is afebrile. She will go home on Ceftin 250 mg twice daily for 6 days and a Z-Josué. She is going to monitor her oxygen at home and was told to return to the Emergency Room if it goes below 85%. Otherwise, she can follow up with her family physician. She was encouraged to (more content not included)... [facility] Evaluation note No assessment inform ation available [facility] Work Phone: Evaluation note Diagnosis Onset Date Gallbladder sludge acute GERD (gastroesophageal reflux disease) acute N&V (nausea and vomiting) ac [place] RUQ fullness chronic Gallbladder sludge acute GERD (gastroesophageal reflux disease) acute N&V (nausea and vomiting) ac [place] RUQ fullness chronic [facility] Work Phone: Evaluation note* Diagnosis Onset Date Resolution Status Gallbladder sludge acute GERD (gastroesophageal reflux disease) acute N&V (nausea and vomiting) ac [place] RUQ fullness chronic Gallbladder sludge acute GERD (gastroesophageal reflux disease) acute N&V (nausea and vomiting) ac [place] RUQ fullness chronic Gallbladder sludge acute RUQ fullness chronic [facility] Work Phone: Evaluation note* Diagnosis Onset Date Resolution Status Gallbladder sludge acute GERD (gastroesophageal reflux disease) acute N&V (nausea and vomiting) ac [place] RUQ fullness chronic Gallbladder sludge acute GERD (gastroesophageal reflux disease) acute N&V (nausea and vomiting) ac [place] RUQ fullness chronic Gallbladder sludge acute RUQ fullness chronic Gallbladder sludge acute RUQ fullness chronic [facility] Work Phone: Evaluation note* Diagnosis Onset Date Resolution Status S/P laparoscopic cholecystectomy acute [facility] Work Phone: Evaluation note* Diagnosis Encounter for gynecological examination (general) (routine) without abnormal findings- Primary Encounter for screening mammogram for breast cancer Lichen sclerosus et atrophicus Circumscribed scleroderma documented in this encounter [facility] note* Diagnosis Encounter for gynecological examination (general) (routine) without abnormal findings- Primary Screening for malignant neoplasm of cervix Screening for malignant neoplasm of the cervix Encounter for screening for human papillomavirus (HPV) Special screening examination for human papillomavirus (HPV) Encounter for screening mammogram for malignant neoplasm of breast Other screening mammogram documented in this encounter [facility] note* Diagnosis Encounter for screening mammogram for breast cancer documented in this encounter [facility] note* Diagnosis Encounter for gynecological examination (general) (routine) without abnormal findings- Primary Encounter for screening mammogram for breast cancer documented in this encounter [facility] note* Diagnosis Encounter for gynecological examination (general) (routine) without abnormal findings documented in this encounter [facility] for referral (narrative)* Diagnostic Procedure Only (Routine) - Pending Review Specialty Diagnoses / Procedures Referred By Lisa t Referred To Contact [facility] Diagnoses Encounter for screening mammogram for breast cancer Procedures ASAEL SCREENING W LAZARA SCREENING DIGITAL BREAST TOMOSYNTHESIS BI SCREENING MAMMOGRAPHY BI 2-VIEW BREAST INC Joleen Delgado APRN.TELEGRAPH OFFICE MANAGER [address] [place] [address] [facility] [address] [place] [address] Referral ID Status Reason Start Date Expiration Date Visits Requested Visits Authorized [id number] Pending Review Auto-Generat ed Referral 10/07/2022 11/06/2023 1 1 [facility] Diagnostic Procedure Only (Routine) - Pending Review Specialty Diagnoses / Procedures Referred By Contac t Referred To Contact [facility] Diagnoses Encounter for screening mammogram for malignant neoplasm of breast Procedures ASAEL SCREENING W LAZARA SCREENING DIGITAL BREAST TOMOSYNTHESIS BI SCREENING MAMMOGRAPHY BI 2-VIEW BREAST INC CAD Joleen Reich APRN.TELEGRAPH OFFICE MANAGER [address] [place] [address] [facility] [address] [place] [address] Referral ID Status Reason Start Date Expiration Date Visits Requested Visits Authorized [id number] Pending Review Auto-Generat ed Referral 10/13/2023 11/11/2024 1 1 * Diagnostic Procedure Only (Routine) - Authorized Specialty Diagnoses / Procedures Referred By Lisa t Referred To Contact [facility] Diagnoses Encounter for gynecological examination (general) (routine) without abnormal findings Procedures ASAEL SCREENING W LAZARA SCREENING DIGITAL BREAST TOMOSYNTHESIS BI SCREENING MAMMOGRAPHY BI 2-VIEW BREAST INC CAD Joleen Reich, JAKE.TELEGRAPH OFFICE MANAGER [address] [place] [address] [facility] [address] [place] [address] Referral ID Status Reason Start Date Expiration Date Visits Requested Visits Authorized [id number] Authorized Auto-Generat ed Referral 10/13/2023 11/11/2024 1 [facility]No reason for referral [facility] Rem[facility] for visit Narrative* Diagnostic Procedure Only (Routine) - Closed Specialty Diagnoses / Procedures Referred By Lisa t Referred To Contact [facility] Diagnoses Encounter for screening mammogram for breast cancer Procedures ASAEL SCREENING W LAZARA SCREENING DIGITAL BREAST TOMOSYNTHESIS BI SCREENING MAMMOGRAPHY BI 2-VIEW BREAST INC CAD RachanaJoleen, PLANER SETUP 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 [address] [place] [address] [facility] [address] [place] [address] Referral ID Status Reason Start Date Expiration Date V isits Requested Visits Authorized [id number] Closed Auto-Generate d Referral 10/07/2022 11/06/2023 1 1 [facility] for visit Narrative* Diagnostic Procedure Only (Routine) - Closed Specialty Diagnoses / Procedures Referred By Contac t Referred To Contact [facility] Diagnoses Encounter for gynecological examination (general) (routine) without abnormal findings Procedures ASAEL SCREENING W LAZARA SCREENING DIGITAL BREAST TOMOSYNTHESIS BI SCREENING MAMMOGRAPHY BI 2-VIEW BREAST INC CAD NicasioInoee, PLANER SETUP 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 [address] [place] [address] Phone: tel: fax: [facility] [address] [place] [address] Referral ID Status Reason Start Date Expiration Date V isits Requested Visits Authorized [id number] Closed Auto-Generate d Referral 10/13/2023 11/11/2024 1 1 [facility] Summary Purpose Family History No Family History Records Found Relationship Condition Age at Onset Recorded Date/T jakub mother Cardiac disease Unknown Hypertension Unknown Malignant neoplasm of breast Unknown father Cardiac disease Unknown Advance Directives No Advanced Directives Records Found Advance Directive Response Recorded Date/ Time Living Will Yes April 18 019 12:23pm Power of Voip Network Engineer Yes April 18, 2019 12:23pm Advance Directive Response Recorded Date/ Time Name of Medical Power of Voip Network Engineer and so n January 12, 2022 9:32am Living Will Yes January 12 9:32am Power of Voip Network Engineer Yes January 12 9:32am Advance Directive Response Recorded Date/ Time Name of Medical Power of Voip Network Engineer and so n January 12, 2022 9:32am Name of Medical Power of Voip Network Engineer SPOUSE February 09, 2022 1:46pm Living Will Yes February 09, 1:46pm Power of Voip Network Engineer Yes February 09, 2022 1:46pm Advance Directive Response Recorded Date/ Time Living Will Yes February 09, 12:46pm Power of Voip Network Engineer Yes February 09, 2022 12:46pm Advance Directive Response Recorded Date/ Time Living Will Yes February 09 1:46pm Power of Voip Network Engineer Yes February 09, 2022 1:46pm Chief Complaint and Reason for Visit Chief Complaint RUQ PAIN Chief Complaint RUQ PAIN GALLSTONES 2 W FU GALLSTONES DISEASE OF GALLBLADDER Reason for Visit Gallbladder sludge GERD (gastroesophageal reflux disease) N&V (nausea and vomiting) RUQ fullness Gallbladder sludge GERD (gastroesophageal reflux disease) N&V (nausea and vomiting) RUQ fullness Chief Complaint RUQ PAIN GALLSTONES 2 W FU GALLSTONES DISEASE OF GALLBLADDER DISCUSS PLAN FOR RUQ PAIN Reason for Visit Gallbladder sludge GERD (gastroesophageal reflux disease) N&V (nausea and vomiting) RUQ fullness Gallbladder sludge GERD (gastroesophageal reflux disease) N&V (nausea and vomiting) RUQ fullness Gallbladder sludge RUQ fullness Chief Complaint RUQ PAIN GALLSTONES 2 W FU GALLSTONES DISEASE OF GALLBLADDER DISCUSS PLAN FOR RUQ PAIN LAP MARIA C GRAMS LAP MARIA C GRAMS Reason for Visit Gallbladder sludge GERD (gastroesophageal reflux disease) N&V (nausea and vomiting) RUQ fullness Gallbladder sludge GERD (gastroesophageal reflux disease) N&V (nausea and vomiting) RUQ fullness Gallbladder sludge RUQ fullness Gallbladder sludge RUQ fullness Chief Complaint LAP MARIA C GRAMS 02/22 Reason for Visit S/P laparoscopic cho lecystectomy Chief Complaint EORDER Chief Complaint Admit Date EORDER- FASTING October 30, 2024 8:06a m Additional Source Comments INFORMATION SOURCE (unrecogn ized section and content) DATE CREATED AUTHOR 04/09/2020 [facility] DATE CREATED AUTHOR AUTHOR'S ORGANIZ ATION 02/20/2021 [facility] DATE CREATED AUTHOR AUTHOR'S ORGANIZ ATION 10/14/2024 [facility] DATE CREATED AUTHOR AUTHOR'S ORGANIZ ATION 11/28/2024 [facility] Goals (unrecognized section and content) Goals may be documented in a n alternate sectionGoals may be documented in an alternate sectionGoals may be documented in an alternate sectionGoals may be documented in an alternate sectionGoals may be documented in an alternate section Care Teams (unrecognized sec tion and content) Team Status: Active Member Role Status Dates Dr. Kunal Cadena MD Family Provider Active Licha Mccray , DO Primary Care Provider Active Team Status: Inactive Member Role Status Dates Licha Mccray DO Primary Care Provider, Referring Provider Active Dr. Collette Ji MD Attending Provider Active Team Status: Inactive Member Role Status Dates Licha Mccray , DO Primary Care Provider Active Archana Hernandez NP-C Attending Provider Active Fuel Cell Battery Technician Relationship Specialty Start Date End Date Kunal Temple MD [address] [facility] [place] [address] PCP - General 07/20/04 Fuel Cell Battery Technician Relationship Specialty Start Date End Date Kunal Temple MD [address] [facility] [address] PCP - General 07/20/04 Team Status: Active Member Role Status Dates Dr. Kunal Cadena MD Family Provider Active Guido Aguayo MD Primary Care Provider Active Team Status: Inactive Member Role Status Dates Guido Aguayo MD Primary Care Provider Active Lucie Harris NP-C Attending Provider, Referr ing Provider Active Fuel Cell Battery Technician Relationship Specialty Start Date End Date Kunal Temple MD [address] [facility] [place] [address] PCP - General 07/20/04 Fuel Cell Battery Technician Relationship Specialty Start Date End Date Kunal Temple MD [address] [facility] [place] [address] PCP - General 07/20/04 Fuel Cell Battery Technician Relationship Specialty Start Date End Date Kunal Temple MD [address] [place] [address] PCP - General 07/20/04 Fuel Cell Battery Technician Relationship Specialty Start Date End Date Kunal Temple MD [address] [facility] [address] PCP - General 07/20/04 Fuel Cell Battery Technician Relationship Specialty Start Date End Date Kunal Temple MD [address] [place] [address] PCP - General 07/20/04 Team Status: Inactive Member Role Status Dates Guido Aguayo MD Primary Care Provider Active St art: October 30, 2024 End: October 30, 2024 Junaid Lott SANDAL PARTS ASSEMBLER, SANDAL PARTS ASSEMBLER-C Attending Provider Active Start: October 30, 2024 End: October 30, 2024 Junaid Lott SANDAL PARTS ASSEMBLER, SANDAL PARTS ASSEMBLER-C Referring Provider Active Start: October 30, 2024 End: October 30, 2024 Source Comments (unrecognize d section and content) In the event this informatio n is protected by the Federal Confidentiality of Alcohol and Drug Abuse Patient Records regulations: The Federal rules restrict any use of the information to criminally investigate or prosecute any alcohol or drug abuse patient.[facility] the event this information is protected by the Federal Confidentiality of Alcohol and Drug Abuse Patient Records regulations: The Federal rules restrict any use of the information to criminally investigate or prosecute any alcohol or drug abuse patient.[facility] the event this information is protected by the Federal Confidentiality of Alcohol and Drug Abuse Patient Records regulations: The Federal rules restrict any use of the information to criminally investigate or prosecute any alcohol or drug abuse patient.[facility] the event this information is protected by the Federal Confidentiality of Alcohol and Drug Abuse Patient Records regulations: The Federal rules restrict any use of the information to criminally investigate or prosecute any alcohol or drug abuse patient.[facility] the event this information is protected by the Federal Confidentiality of Alcohol and Drug Abuse Patient Records regulations: The Federal rules restrict any use of the information to criminally investigate or prosecute any alcohol or drug abuse patient.[facility] the event this information is protected by the Federal Confidentiality of Alcohol and Drug Abuse Patient Records regulations: The Federal rules restrict any use of the information to criminally investigate or prosecute any alcohol or drug abuse patient.[facility] the event this information is protected by the Federal Confidentiality of Alcohol and Drug Abuse Patient Records regulations: The Federal rules restrict any use of the information to criminally investigate or prosecute any alcohol or drug abuse patient.[facility] Reason for Visit (unrecogniz ed section and content) Reason Comments Yearly Exam With Mammogram 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 This clinical summary was aggregated from multiple sources. Caution should be exercised in using it in the provision of clinical care. This summary normalizes information from multiple sources, and as a consequence, information in this document may materially change the coding, format and clinical context of patient data. In addition, data may be omitted in some cases. CLINICAL DECISIONS SHOULD BE BASED ON THE PRIMARY CLINICAL RECORDS. [facility]. provides no warranty or guarantee of the accuracy or completeness of information in this document.
== END | disposition home or self-care (01) ==
PROVIDERS: PCP Family Medicine; Referring Provider Family Medicine; Visit Provider Family Medicine
DX: R10.9 Unspecified abdominal pain (principal)
CPT/HCPCS: 76705

== ENCOUNTER → 2024-12-11 | Outpatient (CLI) | payer BC, SELFPAY ==
[2024-12-11 12:12] LABS: Hematocrit 44.3 % (37-47); Hemoglobin 14.8 g/dL (12.0-15.0); Immature Granulocytes Count 0.010 X10^3/uL (0.0-0.0); Mean Corp Hgb Conc 33.4 g/dL (32-36); Mean Corpuscular Volume 88.2 fL (81-99); Mean Platelet Vol. 10.2 fl (6.2-12.0); NRBC Flagged by Analyzer 0 % (0-5); Platelet Count 208 K/mm3 (150-450); RBC Distribution Width CV 12.2 % (11.6-14.6); RBC Distribution Width SD 39.5 fl (35.1-43.9); Red Blood Count 5.02 M/mm3 (4.2-5.4); White Blood Count 6.3 K/mm3 (4.4-11.0)
[2024-12-11 12:42] LABS: AST(SGOT) 20 U/L (<=31); Alanine Aminotransfer ALT/SGPT 17 U/L (<=34); Albumin, Serum 4.6 g/dL (3.4-4.8); Alkaline Phosphatase 72 U/L (35-104); Anion Gap 13 (5-15); BUN 13 mg/dL (4-19); BUN/Creat Ratio 16.3 RATIO (10-20); Calcium,Total 9.8 mg/dL (7.6-11.0); Carbon Dioxide 25.1 mmol/L (21.0-32.0); Chloride 104 mmol/L (98-108); Globulin 3.1 g/dL (2.2-4.2); Glucose 110 mg/dL (70-99); Potassium 4.2 mmol/L (3.3-5.1)
== END | disposition home or self-care (01) ==
LOC: LAB 11:32
PROVIDERS: PCP Family Medicine; Referring Provider Student in an Organized Health Care Education/Training Program; Visit Provider Student in an Organized Health Care Education/Training Program
DX: K21.9 Gastro-esophageal reflux disease without esophagitis (principal); R11.2 Nausea with vomiting, unspecified; R19.8 Other specified symptoms and signs involving the digestive system and abdomen
CPT/HCPCS: 36415; 80053; 85025

== ENCOUNTER → 2024-12-14 | Outpatient (CLI) | payer BC, SELFPAY ==
--- OUTSIDE RECORDS SUMMARY | 2024-12-14 07:09 | XMS RPT_ITS | CCD ---
Author Organization [facility] Care Team Providers Care Transformer Builder Name Role Phone KENA, DR JAXSON Bennett [...] Provider Kunal Temple MD Primary Care Provider MAC, JOLEEN Attending Unavailable MAC, JOLEEN Referring Unavailable KUNAL TEMPLE Primary Care Unavailable MAC, JOLEEN Referring Unavailable MAVERICK KUNAL Erica Primary Care Unavailable Guido Aguayo MD Primary Care Provider McMorrow WEB PRODUCTION ASSISTANT-C, Junaid Attending Provider McMorrow WEB PRODUCTION ASSISTANT-C, Junaid Referring Provider Guido Aguayo MD Attending Provider Guido Aguayo MD Referring Provider Mariposa Garcia Attending Provider McMorrow WEB PRODUCTION ASSISTANT, Junaid Attending Unavailable McMorrow WEB PRODUCTION ASSISTANT, Junaid Referring Unavailable Olivier, Chalon Primary Care Unavailable Mariposa Bejarano Attending Unavailable Mariposa Bejarano Referring Unavailable Olivier, Chalon Primary Care Unavailable OlivierGuido Attending Unavailable Olivier, Bubbaon Referring Unavailable Olivier, Chalon Primary Care Unavailable Olivier, Chalon Referring Unavailable AtanasMariposa jacobson Attending Unavailable Olivier, Chalon Primary Care Unavailable Allergies Allergy Classification Reported Allergen(s) Allergy Type Date of Onset Reaction(s) Facility (1 source) Nitrofurantoin Drug Allergy [facility] Repository (9 sources) Nitrofurantoin Drug Allergy 9 Rash [facility] (18 sources) Mesa nut; Translations: [PINE NUT] Allergy to substance 9 Hives, Vomiting [facility] (9 sources) NITROFURANTOIN, MACROCRYSTALS / Nitrofurantoin, Monohydrate; Translations: [NITROFURANTOIN MONOHYD/M-CRYST] Drug Allergy 6 Hives [facility] Work Phone: (1 source) Nitrofurantoin Drug Allergy 2 [facility] Repository (1 source) Mesa nut Drug allergy (disorder) 2 [facility] Repository Medications Current Medications Medication Drug Class(es) Dates Sig (Normalized) Sig (Original) acetaminophen 325 mg / oxyCODONE hydrochloride 5 mg oral tablet (6 sources) Opioid Agonist Start: 02-22-2022 take 1 tablet by mouth every six hours as needed for pain Oxycodone-Acetaminop hen 5-325 mg tablet Active 1 {tbl} PO EVERY 6 HOURS as needed for pain 10 3 0 February 22, 2022 Postoperative pain Other acute postprocedural pain Start: 02-22-2022 take 1 tablet by roel every six hours Oxycodone-Acetaminophen Active 1 TABLET PO EVERY 6 HOURS 10 3 February 22, 2022 esomeprazole 40 mg delayed release oral capsule (2 sources) Proton Pump Inhibitor Start: 12-24-2021 take 40 mg by mouth once daily Esomeprazole Magnesium Active 40 MG PO DAILY December 24, 2021 12:00am Start: 12-10-2021 take 1 capsule by mo [facility] once daily Esomeprazole Magnesium (Nexium) 20 mg capsule,delayed release(DR/EC) Active 20 MG PO DAILY December 10, 2021 12:00am fluocinolone acetonide 0.70211 mg/mg topical ointment (9 sources) Corticosteroid Start: 07-26-2021 End: 10-07-2022 fluocinolone (SYNALAR) 0.025 % ointment Indications: Lichen sclerosus et atrophicus Apply small amount bid X 2 weeks, daily X 2 weeks then prn 15 g 5 10/07/2022 Active Comment on above: Apply small amount b id X 2 weeks, daily X 2 weeks then prn Multivitamin 1 EACH tablet (3 sources) Start: 04-18-2019 Multivitamin 1 EACH tablet Active 1 NMA PO DAILY April 18, 2019 1:00am Multivitamin preparation (6 sources) Start: 04-18-2019 Multivitamin A ctive 1 EACH PO DAILY April 18, 2019 12:00am Start: 04-18-2019 Multivitamin A ctive 1 EACH PO DAILY April 18, 2019 1:00am MULTIVITAMIN TAB (8 sources) Start: 09-07-2005 MULTIVITAMIN T AB Take one(1) tablet daily. 0 09/07/2005 Active Comment on above: Take one(1) tablet d aily. sucralfate 1000 mg oral tablet (1 source) Aluminum Complex Start: 01-17-2022 take 1 g by mouth four times daily 1 hour(s) before bedtime Sucralfate Active 1 GM PO 4 TIMES DAILY 56 January 172 12:00am Take 1 hour before meals and at bedtime Problems Active Problems Problem Classification Problem Date Documented Da te Episodic/Chronic Abdominal pain (1 source) Unspecified abdominal pain; Translations: [Unspecified abdominal pain] Onset: 5 Episodic Biliary tract disease (17 sources) Biliary sludge; Translations: [Other specified diseases of gallbladder] Episodic Esophageal disorders (20 sources) Gastroesophageal reflux disease; Translations: [Gastro-esophageal reflux disease without esophagitis] Onset: 3 Chronic Immunizations and screening for infectious disease (3 sources) Contact with and (suspected) exposure to other viral communicable diseases; Translations: [Patient encounter status] Onset: 0 Episodic Menopausal disorders (9 sources) Postmenopausal bleeding; Translations: [Postmenopausal bleeding] 04-24-2019 Chronic Nausea and vomiting (16 sources) Nausea and vomiting; Translations: [Nausea with vomiting, unspecified] Onset: 5 Episodic Other female genital disorders (9 sources) Polyp of corpus uteri; Translations: [Polyp of corpus uteri] 04-24-2019 Episodic Other gastrointestinal disorders (9 sources) Finding of abdomen; Translations: [Other specified symptoms and signs involving the digestive system and abdomen] 12-10-2021 Episodic Comment on above: for 1.5 years Other gastrointestinal disorders (10 sources) Other specified symptoms and signs involving the digestive system and abdomen; Translations: [Other symptoms involving abdomen and pelvis] Onset: 5 Episodic Other screening for suspected conditions (not mental disorders or infectious disease) (7 sources) Patient encounter status; Translations: [Encounter for screening mammogram for malignant neoplasm of breast] Onset: 5 Episodic Other skin disorders (9 sources) Lichen sclerosus et atrophicus; 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 Residual codes; unclassified (1 source) Acquired absence of other specified parts of digestive tract; Translations: [Other postprocedural status] 03-07-2022 Episodic Unclassified (2 sources) ENCOUNTER FOR SCREENING FOR COVID-19; Translations: [ENCOUNTER FOR SCREENING FOR COVID-19] Onset: 1 Viral infection (1 source) COVID-19; Translations: [COVID-19] Onset: 11-03-202 0 Past or Other Problems Problem Classification Problem Date Documented Da te Episodic/Chronic Unclassified (1 source) ENCOUNTER FOR SCREENING FOR COVID-19; Translations: [ENCOUNTER FOR SCREENING FOR COVID-19] Onset: 02-10-2021 Unclassified (3 sources) Patient encounter status 10-14-2024 Results Test Name Value Interpretation Reference Range Facility CBC W/Diff, Automatedon 07-0 Absolute Lymph 2.41 X10 3/uL Normal 0.83-4.51 [facility] Comment on above: Performed By: #### L 500.4050, L100.0100 #### [facility] [address] [place], [address] Absolute Neut 3.3 X10 3/uL Normal 2.0-7.7 [facility] Comment on above: Performed By: #### L 500.4050, L100.0100 #### [facility] [address] [place], [address] Basophils/100 WBC (Bld) 0.6 % Normal 0-1 [facility] Comment on above: Performed By: #### L 500.4050, L100.0100 #### [facility] [address] [place], [address] Eosinophils/100 WBC (Bld) 1.7 % Normal 0-5 [facility] Comment on above: Performed By: #### L 500.4050, L100.0100 #### [facility] [address] [place], [address] Erythrocyte distribution width (RBC) [Ratio] 12.2 % Normal 11.6-14.6 [facility] Comment on above: Performed By: #### L 500.4050, L100.0100 #### [facility] [address] [place], [address] Hematocrit (Bld) [Volume fraction] 44.3 % Normal 37-47 [facility] Comment on above: Performed By: #### L 500.4050, L100.0100 #### [facility] [address] [place], [address] Hemoglobin (Bld) [Mass/Vol] 14.8 g/dL Normal 12.0-15.0 [facility] Comment on above: Performed By: #### L 500.4050, L100.0100 #### [facility] [address] [place], [address] IG% 0.200 Normal 0.0-0.9 [facility] Comment on above: Result Comment: IG% - Immature Granulocytes (promyelocytes, myelocytes and metamyelocytes) > 1% indicates that a LEFT SHIFT is Present. Performed By: #### L 500.4050, L100.0100 #### [facility] [address] [place], [address] Lymphocytes/100 WBC (Bld) 38.2 % Normal 19-41 [facility] Comment on above: Performed By: #### L 500.4050, L100.0100 #### [facility] [address] [place], [address] MCH (RBC) [Entitic mass] 29.5 pg Normal 27.0-32.0 [facility] Comment on above: Performed By: #### L 500.4050, L100.0100 #### [facility] [address] [place], [address] MCHC (RBC) [Mass/Vol] 33.4 g/dL Normal 32-36 [facility] Comment on above: Performed By: #### L 500.4050, L100.0100 #### [facility] [address] [place], [address] MCV (RBC) [Entitic vol] 88.2 fL Normal 81-99 [facility] Comment on above: Performed By: #### L 500.4050, L100.0100 #### [facility] [address] [place], [address] Monocytes/100 WBC (Bld) 6.3 % Normal 0-10 [facility] Comment on above: Performed By: #### L 500.4050, L100.0100 #### [facility] [address] [place], [address] Neutrophils/100 WBC (Bld) 53.0 % Normal 47-70 [facility] Comment on above: Performed By: #### L 500.4050, L100.0100 #### [facility] [address] [place], [address] Nucleated RBC (Bld) [#/Vol] 0 10*3/uL Normal 0-5 [facility] Comment on above: Performed By: #### L 500.4050, L100.0100 #### [facility] [address] [place], [address] Platelet mean volume (Bld) [Entitic vol] 10.2 fL Normal 6.2-12.0 [facility] Comment on above: Performed By: #### L 500.4050, L100.0100 #### [facility] [address] [place], [address] Platelets (Bld) [#/Vol] 208 10*3/uL Normal 150-450 [facility] Comment on above: Performed By: #### L 500.4050, L100.0100 #### [facility] [address] [place], [address] RBC (Bld) [#/Vol] 5.02 10*6/uL Normal 4.2-5.4 [facility] Comment on above: Performed By: #### L 500.4050, L100.0100 #### [facility] [address] [place], [address] RDW SD 39.5 fl Normal 35.1-43.9 [facility] Comment on above: Performed By: #### L 500.4050, L100.0100 #### [facility] [address] [place], [address] WBC (Bld) [#/Vol] 6.3 10*3/uL Normal 4.4-11.0 [facility] Comment on above: Performed By: #### L 500.4050, L100.0100 #### [facility] [address] [place], [address] Comprehensive Metabolic Prof ilon 12-11-2024 Albumin [Mass/Vol] 4.6 g/dL Normal 3.4-4.8 [facility] Comment on above: Performed By: #### L 500.4050, L100.0100 #### [facility] [address] [place], [address] Albumin/Globulin [Mass ratio] 1.5 {ratio} Normal 0.9-2.4 [facility] Comment on above: Performed By: #### L 500.4050, L100.0100 #### [facility] [address] [place], [address] ALK PHOS 72 U/L Normal 35-104 [facility] Comment on above: Performed By: #### L 500.4050, L100.0100 #### [facility] [address] [place], [address] ALT [Catalytic activity/Vol] 17 U/L Normal <=34 [facility] Comment on above: Performed By: #### L 500.4050, L100.0100 #### [facility] [address] [place], [address] AST [Catalytic activity/Vol] 20 U/L Normal <=31 [facility] Comment on above: Performed By: #### L 500.4050, L100.0100 #### [facility] [address] [place], [address] Bilirubin [Mass/Vol] 0.47 mg/dL Normal 0.00-1.30 [facility] Comment on above: Performed By: #### L 500.4050, L100.0100 #### [facility] [address] [place], [address] BUN/CRE 16.3 RATIO Normal 10-20 [facility] Comment on above: Performed By: #### L 500.4050, L100.0100 #### [facility] [address] [place], [address] Calcium [Mass/Vol] 9.8 mg/dL Normal 7.6-11.0 [facility] Comment on above: Performed By: #### L 500.4050, L100.0100 #### [facility] [address] [place], [address] Chloride [Moles/Vol] 104 mmol/L Normal 98-108 [facility] Comment on above: Performed By: #### L 500.4050, L100.0100 #### [facility] [address] [place], [address] CO2 [Moles/Vol] 25.1 mmol/L Normal 21.0-32.0 [facility] Comment on above: Performed By: #### L 500.4050, L100.0100 #### [facility] [address] [place], [address] Creatinine [Mass/Vol] 0.77 mg/dL Normal 0.70-1.20 [facility] Comment on above: Performed By: #### L 500.4050, L100.0100 #### [facility] [address] [place], [address] GAP 13 Normal 5-15 [facility] Comment on above: Performed By: #### L 500.4050, L100.0100 #### [facility] [address] [place], [address] GFR/1.73 sq M.predicted among non-blacks MDRD (S/P/Bld) [Vol rate/Area] 86 mL/min/{1.73_m2} Normal >60 [facility] Comment on above: Result Comment: mL/m in/1.73m2 CKD-EPI Creatinine Equation (2020) Performed By: #### L 500.4050, L100.0100 #### [facility] [address] [place], [address] Globulin (S) [Mass/Vol] 3.1 g/dL Normal 2.2-4.2 [facility] Comment on above: Performed By: #### L 500.4050, L100.0100 #### [facility] [address] [place], [address] Glucose [Mass/Vol] 110 mg/dL High 70-99 [facility] Comment on above: Performed By: #### L 500.4050, L100.0100 #### [facility] [address] [place], [address] Potassium [Moles/Vol] 4.2 mmol/L Normal 3.3-5.1 [facility] Comment on above: Performed By: #### L 500.4050, L100.0100 #### [facility] [address] [place], [address] Sodium [Moles/Vol] 141 mmol/L Normal 133-145 [facility] Comment on above: Performed By: #### L 500.4050, L100.0100 #### [facility] [address] [place], [address] T PROT 7.7 g/dL Normal 5.9-8.4 [facility] Comment on above: Performed By: #### L 500.4050, L100.0100 #### [place] [facility] [address] [place], [address] Urea nitrogen [Mass/Vol] 13 mg/dL Normal 4-19 [facility] Comment on above: Performed By: #### L 500.4050, L100.0100 #### [facility] [address] [place], [address] Gastroenterology Visit Repor ton 12-11-2024 Gastroenterology Visit Report [facility] [address] [place] [address] OFFICE VISIT Date of Service: 12/11/24 MR#: [id number] Acct: [id number] Name: TAMIKO SHEARER Rep #: [id number] : 1960 Provider: JERALD Rodriguez Age/Sex: 64/F Location: [email or web address] Status: Signed Intake Vital Signs 02/22/22 10:18 Height 5 ft 5 in Intake Visit Reasons: RT FLANK PAIN Chief Complaint: ruq pain Allergies nitrofurantoin (From Macrobid) Allergy (Verified 03/07/22 13:50) Rash pine nut Allergy (Verified 03/07/22 13:50) Rash Nurse's Note: OV 12/11/24 Pt here to establish care with [facility]. Pt reports constipation, R sided abdominal pain, gas and bloating. Pt reports bm daily but strains more than normal. Reports gallbladder removed 2022. Prior hx of EGD and colonoscopy. Pt takes a multivitamin daily. PFSH Medical History (Updated 12/11/24 @ 11:33 by JERALD Rodriguez) History of ulceration No significant medical problems Post-menopausal Wears glasses Surgical History (Updated 03/09/22 @ 09:[address] Collette Ji MD) S/P laparoscopic cholecystectomy Hx of esophagogastroduodenoscopy History of hysteroscopy History of colonoscopy Family History Mother Heart disease Hypertension Breast cancer Father Heart disease Hypertension Social History Smoking Status: Never smoker alcohol intake: never substance use type: does not use HPI HPI Chief Complaint: ruq pain Details: TAMIKO JEANNE, is a 64 F who presents to the office today for establishment with [facility]. EGD 01.17.22; - Z-line irregular. Biopsied. - One non-bleeding duodenal ulcer with no stigmata of bleeding. - Gastritis. Biopsied. WSA cholecystectomy 2021 Pt has been having intermittent RUQ abd pain for a few months now. About 3 weeks ago the pain became constant. She was seen by her PCP who diagnosed her with a UTI and started her on an antibiotic. Her pain did not improve. She had her gallbladder removed in 2021 and does not feel this is similarly pain. Pain is not worse with eating. Certain positions make it worse. Applying pressure to the area relieves her pain. She feels bloated and like she may be constipated however she has 3 bm per day. She denies heartburn, n/v, loss of appetite, weightless or diarrhea. She is due for colonoscopy in 2025. ROS Const Constitutional: No anorexia, fatigue, fever(s), weight change or sleep problems Eyes Eyes: No change in vision ENT ENT: No abnormal hearing, difficulty swallowing, mouth lesions, tongue swelling or throat swelling Resp Respiratory: No cough or shortness of breath Cardio Cardiology: No chest pain at rest, chest pain with exertion, shortness of breath or dyspnea on exertion Gastro GI: Positive for abdominal pain and bloating; No difficulty swallowing Genitourinary-Female: No difficulty urinating or burning urination Musc Musculoskeletal: No joint pain, joint swelling, muscle weakness or decreased muscle mass Skin Skin: No hair loss in leg, yellowing of the eye, itchy eyes, rash, skin ulcer or skin swelling Neuro Neurology: No abnormal hearing, abnormal movements, confusion, unsteady gait/balance or memory loss Psych Psychiatric: No anxiety, No confusion and No memory loss Endo Endocrine: No fatigue or weight change Aller/Imm Allergy/Immunologic: No itchy eyes, throat swelling or tongue swelling Warren/Lymp Hematologic/Lymphatic: No easy bleeding, easy bruising or enlarged lymph nodes Exam Const General: cooperative, healthy appearing and comfortable Orientation: alert [facility] Head: normal to inspection Eyes General: appearance normal, both eyes and all related structures Neck Neck: normal visual inspection Chest Chest palpation inspection: normal inspection of the chest Resp Effort Inspection: normal respiratory effort Cardio Rate: regular rate Rhythm: regular rhythm GI Inspection: normal to inspection Auscultation: normal bowel sounds Palpation: soft, no hepatosplenomegaly and nontender Assessment and Plan Assessment and Plan (1) GERD (gastroesophageal reflux disease): Status: Acute Plan: Tamiko is a 64 yo female pt here today for evaluation of RUQ pain starting 3 months ago worsening over the past 3 weeks. Pt is s/p cholecystectomy in 2021. Her pain is not related to oral intake. She has increased pain with certain body movements. Last EGD in 2021 with duodenal ulcers. She is due for colonoscopy in 2025. I will order stool testing, CBC, CMP and CT abd/pelvis. Differential diagnosis included musculoskeletal pain, choledocholithiasis, sphincter of Oddi dysfunction, constipation or duodenal ulcer. I recommended starting daily PPI and dicyclomine PRN however she declin (more content not included)... Normal [facility] Abdomen Limitedon 11-28-2024 Abdomen Limited [facility] [address] [place] [address] [id number] Abdomen Limited MR#: [id number] Acct: [id number] Name: TAMIKO SHEARER Rep #: [id number] : 1960 F 64 From: [place] MD PCP: Dr. Guido Aguayo MD Status: REG CLI Study: Abdomen Limited Date of Exam: 11/28/24 Exam# [id number] Ordering Dr: Guido Aguayo MD PROCEDURE: ABDOMEN LIMITED 11/28/2024 REASON FOR EXAM: R FLANK PAIN COMPARISON: December 03, 2021. FINDINGS: Liver: Grossly normal size and echotexture. Liver measures 17.1 cm. Gallbladder: Surgically absent. Common bile duct: Normal measuring 5.1 mm . Pancreas: Normal Other: Visualized portions of the right kidney are unremarkable. No right upper quadrant ascites. US/Abdomen Limited IMPRESSION: Borderline hepatomegaly. Reading Location: [id number] CC: Dr. Guido Aguayo MD Turning Lathe Tender: Signed Normal [facility] Anion gap in Serum or Plasma Ordered By: Junaid Lott on 10-30-2024 Anion gap [Moles/Vol] 11 mmol/L 5-15 [facility] BUN/creatinine ratioOrdered By: Junaid [facility] 10-30-2024 Urea nitrogen/Creatinine [Mass ratio] 19.1 mg/mg 10-20 [facility] Bilirubin, totalOrdered By: Junaid [facility] on 10-30-2024 Bilirubin [Mass/Vol] 0.45 mg/dL 0.00-1.30 [facility] Calculated very low density lipoprotein (VLDL) cholesterol measurementOrdered By: Junaid [facility] on 10-30-2024 Calculated very low density lipoprotein (VLDL) cholesterol measurement 21 mg/dL 5-40 [facility] Carbon dioxide, total [Moles /volume] in Central venous bloodOrdered By: Junaid [facility] on 10-30-2024 CO2 [Moles/Vol] 25.1 mmol/L 21.0-32.0 [facility] Chloride assayOrdered By: An gel [facility] on 10-30-2024 Chloride [Moles/Vol] 104 mmol/L 98-108 [facility] Comprehensive Metabolic Prof ilon 10-30-2024 Albumin [Mass/Vol] 4.4 g/dL Normal 3.4-4.8 [facility] Comment on above: Order Comment: Order Date: 10/29/24 Order Info: [id number] - CMP Order Info: [id number] - LIPID Performed By: #### L [id number] #### [facility] [address] [place], [address] Albumin/Globulin [Mass ratio] 1.5 {ratio} Normal 0.9-2.4 [facility] Comment on above: Order Comment: Order Date: 10/29/24 Order Info: [id number] - CMP Order Info: [id number] - LIPID Performed By: #### L [id number] #### [facility] [address] [place], [place], [id number] ALK PHOS 68 U/L Normal 35-104 [facility] Comment on above: Order Comment: Order Date: 10/29/24 Order Info: [id number] - CMP Order Info: [id number] - LIPID Performed By: #### L [id number] #### [facility] [address] [place], [address] ALT [Catalytic activity/Vol] 21 U/L Normal <=34 [facility] Comment on above: Order Comment: Order Date: 10/29/24 Order Info: [id number] - CMP Order Info: [id number] - LIPID Performed By: #### L [id number] #### [facility] [address] [place], [address] AST [Catalytic activity/Vol] 21 U/L Normal <=31 [facility] Comment on above: Order Comment: Order Date: 10/29/24 Order Info: 86-1 - CMP Order Info: [id number] - LIPID Performed By: #### L [id number] #### [facility] [address] [place], [address] Bilirubin [Mass/Vol] 0.45 mg/dL Normal 0.00-1.30 [facility] Comment on above: Order Comment: Order Date: 10/29/24 Order Info: [id number] - CMP Order Info: [id number] - LIPID Performed By: #### L [id number] #### [facility] [address] [place], [address] BUN/CRE 19.1 RATIO Normal 10-20 [facility] Comment on above: Order Comment: Order Date: 10/29/24 Order Info: [id number] - CMP Order Info: [id number] - LIPID Performed By: #### L [id number] #### [facility] [address] [place], [address] Calcium [Mass/Vol] 9.5 mg/dL Normal 7.6-11.0 [facility] Comment on above: Order Comment: Order Date: 10/29/24 Order Info: [id number] - CMP Order Info: [id number] - LIPID Performed By: #### L [id number] #### [facility] [address] [place], [place], [address] [phone] Chloride [Moles/Vol] 104 mmol/L Normal 98-108 [facility] Comment on above: Order Comment: Order Date: 10/29/24 Order Info: [id number] - CMP Order Info: [id number] - LIPID Performed By: #### L [id number] #### [facility] [address] [place], [address] CO2 [Moles/Vol] 25.1 mmol/L Normal 21.0-32.0 [facility] Comment on above: Order Comment: Order Date: 10/29/24 Order Info: 07- - CMP Order Info: [id number] - LIPID Performed By: #### L [id number] #### [facility] [address] [place], [place], [address] Creatinine [Mass/Vol] 0.69 mg/dL Low 0.70-1.20 [facility] Comment on above: Order Comment: Order Date: 10/29/24 Order Info: [id number] - CMP Order Info: [id number] - LIPID Performed By: #### L [id number] #### [facility] [address] [place], [address] GAP 11 Normal 5-15 [facility] Comment on above: Order Comment: Order Date: 10/29/24 Order Info: [id number]- - CMP Order Info: [id number] - LIPID Performed By: #### L [id number] #### [facility] [address] [place], [place], [address] (975 GFR/1.73 sq M.predicted among non-blacks MDRD (S/P/Bld) [Vol rate/Area] 98 mL/min/{1.73_m2} Normal >60 [facility] Comment on above: Order Comment: Order Date: 10/29/24 Order Info: [id number] - CMP Order Info: [id number] - LIPID Result Comment: mL/m in/1.73m2 CKD-EPI Creatinine Equation (2020) Performed By: #### L [id number] #### [facility] [address] [place], [address] Globulin (S) [Mass/Vol] 2.9 g/dL Normal 2.2-4.2 [facility] Comment on above: Order Comment: Order Date: 10/29/24 Order Info: [id number] - CMP Order Info: [id number] - LIPID Performed By: #### L [id number] #### [facility] [address] [place], [address] Glucose [Mass/Vol] 99 mg/dL Normal 70-99 [facility] Comment on above: Order Comment: Order Date: 10/29/24 Order Info: [id number] - CMP Order Info: [id number] - LIPID Performed By: #### L [id number] #### [facility] [address] [place], [address] Potassium [Moles/Vol] 4.3 mmol/L Normal 3.3-5.1 [facility] Comment on above: Order Comment: Order Date: 10/29/24 Order Info: [id number] - CMP Order Info: [id number] - LIPID Performed By: #### L [id number] #### [facility] [address] [place], [address] Sodium [Moles/Vol] 140 mmol/L Normal 133-145 [facility] Comment on above: Order Comment: Order Date: 10/29/24 Order Info: [id number] - CMP Order Info: [id number] - LIPID Performed By: #### L [id number] #### [facility] [address] [place], [address] T PROT 7.3 g/dL Normal 5.9-8.4 [facility] Comment on above: Order Comment: Order Date: 10/29/24 Order Info: [id number] - CMP Order Info: [id number] - LIPID Performed By: #### L [id number] #### [facility] [address] [place], [place], [address] Urea nitrogen [Mass/Vol] 13 mg/dL Normal 4-19 [facility] Comment on above: Order Comment: Order Date: 10/29/24 Order Info: [id number] - CMP Order Info: [id number] - LIPID Performed By: #### L [id number] #### [facility] [address] [place], [place], [address] Glomerular filtration rate ( GFR) estimation/1.73 sq m using serum, plasma, or whole bOrdered By: Junaid Lott on 10-30-2024 GFR/1.73 sq M.predicted among non-blacks MDRD (S/P/Bld) [Vol rate/Area] 98 mL/min/{1.73_m2} >60 [facility] Comment on above: mL/min/1.73m2 CKD-EP I Creatinine Equation (2020) LDL calc ser/plasOrdered By: Junaid Lott on 10-30-2024 Cholesterol in LDL [Mass/Vol] 155 mg/dL [facility] Comment on above: Tlwcekqvvx=514-258 m g/dL & Higher Wlbe=487 mg/dL or greater Laboratory - Chemistry and C hemistry - challengeOrdered By: Junaid Lott on 10-30-2024 AST [Catalytic activity/Vol] 21 U/L <32 [facility] Lipid Profileon 10-30-2024 CHOL:HDL 3.34 Normal [facility] Comment on above: Order Comment: Order Date: 10/29/24 Order Info: [id number] - CMP Order Info: [id number] - LIPID Performed By: #### L 500.4100 #### [facility] [address] [place], [place], [address] Cholesterol [Mass/Vol] 251 mg/dL High <=200 [facility] Comment on above: Order Comment: Order Date: 10/29/24 Order Info: [id number] - CMP Order Info: [id number] - LIPID Result Comment: Chol esterol level, Desirable <200 mg/dL Borderline high cholesterol 200-239 mg/dL High cholesterol >=240 mg/dL Recommendations of the NCEP Adult Treatment Panel for the following risk-cutoff thresholds for the [place] population. Performed By: #### L 500.4100 #### [facility] [address] [place], [address] Cholesterol in HDL [Mass/Vol] 75 mg/dL Normal [facility] Comment on above: Order Comment: Order Date: 10/29/24 Order Info: [id number] - CMP Order Info: [id number] - LIPID Result Comment: Vandana onal Cholesterol Education Program (NCEP) guidelines: <40 mg/dL: Low HDL-cholesterol (major risk factor for CHD) >= 60 mg/dL: High HDL-cholesterol (negative risk factor for CHD) HDL-cholesterol is affected by a number of factors, e.g. smoking, exercise, hormones, sex and age. Performed By: #### L 500.4100 #### [facility] [address] [place], [address] Cholesterol in LDL [Mass/Vol] 155 mg/dL Normal [facility] Comment on above: Order Comment: Order Date: 10/29/24 Order Info: [id number] - CMP Order Info: [id number] - LIPID Result Comment: Bord xdunel=135-710 mg/dL Higher Bxds=639 mg/dL or greater Performed By: #### L 500.4100 #### [facility] [address] [place], [address] Cholesterol in VLDL [Mass/Vol] 21 mg/dL Normal 5-40 [facility] Comment on above: Order Comment: Order Date: 10/29/24 Order Info: [id number] - CMP Order Info: [id number] - LIPID Performed By: #### L 500.4100 #### [facility] [address] [place], [address] Triglyceride [Mass/Vol] 106 mg/dL Normal [facility] Comment on above: Order Comment: Order Date: 10/29/24 Order Info: [id number] - CMP Order Info: [id number] - LIPID Result Comment: The drugs N-Acetylcysteine and Metamizole may falsely depress this assay. Normal range: <150 mg/dL Borderline High: 150-199 mg/dL High: 200-499 mg/dL Very High: >500 mg/dL Performed By: #### L 500.4100 #### [facility] [address] [place], [address] Potassium measurement (mass/ volume)Ordered By: Junaid Lott on 10-30-2024 Potassium (Unsp spec) [Mass/Vol] 4.3 mmol/L 3.3-5.1 [facility] Screening total cholesterol/ high density lipoprotein (HDL) cholesterol ratioOrdered By: Junaid [facility] on 10-30-2024 Cholesterol.total/Ch olesterol in HDL [Mass ratio] 3.34 {ratio} [facility] Serum creatinine measurement (mass/volume)Ordered By: Junaid Colenewarknabeel 10-30-2024 Creatinine [Mass/Vol] 0.69 mg/dL Low 0.70-1.20 [facility] Serum globulin measurementOr dered By: [facility] 10-30-2024 Globulin (S) [Mass/Vol] 2.9 g/dL 2.2-4.2 [facility] Serum glucose measurement (m ass/volume)Ordered By: Junaid [facility] 10-30-2024 Glucose [Mass/Vol] 99 mg/dL 70-99 [facility] Serum or plasma alanine neri otransferase (ALT) measurementOrdered By: Junaid [facility] 10-30-2024 ALT [Catalytic activity/Vol] 21 U/L <35 [facility] Serum or plasma albumin neelam urement (mass/volume)Ordered By: [facility] hospital[facility] 10-30-2024 Albumin [Mass/Vol] 4.4 g/dL 3.4-4.8 [facility] Serum or plasma albumin/glob ulin mass ratioOrdered By: [facility] hospitalnabeel 10-30-2024 Albumin/Globulin [Mass ratio] 1.5 {ratio} 0.9-2.4 [facility] Serum or plasma alkaline jose ramon sphatase measurementOrdered By: Junaid Lott 5 ALP [Catalytic activity/Vol] 68 U/L 35-104 [facility] Serum or plasma calcium neelam urement (mass/volume)Ordered By: Junaid Colenabeel 10-30-2024 Calcium [Mass/Vol] 9.5 mg/dL 7.6-11.0 [facility] Serum or plasma cholesterol in HDL measurement (mass/volume)Ordered By: Junaid Lott 10-30-2024 Cholesterol in HDL [Mass/Vol] 75 mg/dL >40 [facility] Comment on above: National Cholesterol Education Program (NCEP) guidelines:<40 mg/dL: Low HDL-cholesterol (major risk factor for CHD)>= 60 mg/dL: High HDL-cholesterol (negative risk factor for CHD)HDL-cholesterol is affected by a number of factors, e.g. smoking, exercise, hormones, sex and age. Serum or plasma cholesterol measurement (mass/volume)Ordered By: Junaid Lott 10-30-2024 Cholesterol [Mass/Vol] 251 mg/dL High <201 [facility] Comment on above: Cholesterol level, D esirable <200 mg/dLBorderline high cholesterol 200-239 mg/dLHigh cholesterol >=240 mg/dLRecommendations of the NCEP Adult Treatment Panel for the following risk-cutoff thresholds for the [place] population. Serum or plasma urea nitroge n measurement (mass/volume)Ordered By: Junaid Lott 10-30-2024 Urea nitrogen [Mass/Vol] 13 mg/dL 4-19 [facility] Sodium levelOrdered By: Kasie Lott on 10-30-2024 Sodium [Moles/Vol] 140 mmol/L 133-145 [facility] Total proteinOrdered By: Bobby Lott on 10-30-2024 Protein [Mass/Vol] 7.3 g/dL 5.9-8.4 [facility] Triglycerides measurementOrd ered By: Junaid Lott on 10-30-2024 Triglyceride [Mass/Vol] 106 mg/dL <199 [facility] Comment on above: The drugs N-Acetylcy steine and Metamizole may falsely depress this assay. 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 As applicable, any other physician, advance practice provider, medical student, or other health professional student that will be observing or involved in the sensitive examination for educational or training purposes was discussed with the Patient or Authorized Drop Hammer Setter Up. The Patient or Authorized Drop Hammer Setter Up has agreed to proceed with the sensitive [...] external genitalia normal, normal Bartholin's glands, urethra, [place]'s glands, no vulvar lesions, no cervical lesions, [...] Joleen Reich APRN.MARCE Referring Provider: JOLEEN REICH [[id number]] Allergies As of Date: 10/14/2024 Noted Allergy Reaction PINE NUT 05/12/2020 4 - Hives 11 - Vomiting MACROBID (NITROFURANTOIN MONOHYD/*09/06/2005 4 - Hives Date Reviewed: 10/14/2024 Reviewed by: Joleen Reich APRN.SOFTWARE TEST MANAGER - Fully Assessed Reason for Visit: Well Woman [1463] Primary Visit Diagnosis:Encounter for gynecological examination (general) (routine) without abnormal findings [Z01.419] Other Visit Diagnosis:Encounter for screening mammogram for breast cancer [Z12.31] Order(s):ASAEL SCREENING W LAZARA [[id number]] Order #: [id number] FUTURE Prescriptions as of 10/14/2024 - fluocinolone [...] for Encounter Date Provider Department Center 10/14/2024 [id number] REICH Encounter Status (more content not included)... Normal [facility] DBT Breast - bilateral scree [...] Isidro Chaudhari M.D. Electronically signed on: 10/14/2024 Turning Lathe Tender: EDITH Transcribe Date/Time: Oct 14 2024 10:07A Dictated by: ISIDRO CHAUDHARI MD This examination was interpreted and the report reviewed and electronically signed by: ISIDRO CHAUDHARI MD on Oct 14 2024 12:27PM [facility] DIVISION OF RADIOLOGY * * *Final Report* * * DATE OF EXAM: Oct 14 2024 10:18AM [facility] 0582 - ASAEL SCREENING W LAZARA / PROCEDURE REASON: Encounter for gynecological examination (general) (routine) without abnormal fin * * * * Physician Interpretation * * * * RESULT: [facility] [address] [place] [address] #[id number] - ASAEL SCREENING W LAZARA HISTORY: 64 [...] significant interval changes. DIVISION OF RADIOLOGY Provider, [facility] - 10/14/2024 * * *Final Report* * * DATE OF EXAM: Oct 14 2024 10:18AM [facility] 0582 - ASAEL SCREENING W LAZARA / PROCEDURE REASON: Encounter for gynecological examination (general) (routine) without abnormal fin * * * * Physician Interpretation * * * * RESULT: [facility] [address] [place] [address] #[id number] - ASAEL SCREENING W LAZARA HISTORY: 64 [...] Isidro Chaudhari M.D. Electronically signed on: 10/14/2024 Turning Lathe Tender: EDITH Transcribe Date/Time: Oct 14 2024 10:07A Dictated by: ISIDRO CHAUDHARI MD This examination was interpreted and the report reviewed and electronically signed by: ISIDRO CHAUDHARI MD on Oct 14 2024 12:27PM EST [facility] Radiology Study observation (narrative) [facility] DBT Breast - bilateral scree ningOrdered By: [facility] Provider on 10-14-2024 [facility] ASAEL SCREENING W TOMOon 10-14 ASAEL SCREENING W LAZARA * * *Final Report* * * DATE OF EXAM: Oct 14 2024 10:18AM [facility] 0582 - ASAEL SCREENING W LAZARA / PROCEDURE REASON: Encounter for gynecological examination (general) (routine) without abnormal fin * * * * Physician Interpretation * * * * RESULT: [facility] [address] [id number] #[id number] - ASAEL SCREENING W LAZARA HISTORY: 64 [...] Isidro Chaudhari M.D. Electronically signed on: 10/14/2024 Turning Lathe Tender: EDITH Transcribe Date/Time: Oct 14 2024 10:07A Dictated by: ISIDRO CHAUDHARI MD This examination was interpreted and the report reviewed and electronically signed by: ISIDRO CHAUDHARI MD on Oct 14 2024 12:27PM EST [id number] Normal [facility] Basophil percentageOrdered B y: Lucie Harris on 10-02-2023 Chloride [Moles/Vol] 104 mmol/L 98-107 [facility] Cholesterol [Mass/Vol] 249 mg/dL <200 [facility] Comment on above: <200 mg/dL Desirable 200-240 mg/dL Borderline >240 mg/dL High Risk Glucose [Mass/Vol] 101 mg/dL 74-106 [facility] Comment on above: Fasting Glucose resu lt from 100 to 125 mg/dL suggests IMPAIRED HOMEOSTASIS per A.D.A. criteria. Hemoglobin (Bld) [Mass/Vol] 14.1 g/dL 12.0-15.0 [facility] Potassium [Moles/Vol] 4.2 mmol/L 3.5-5.1 [facility] Sodium [Moles/Vol] 139 mmol/L 136-145 [facility] Triglyceride [Mass/Vol] 70 mg/dL <199 [facility] Comment on above: The drugs N-Acetylcy steine and Metamizole may falsely depress this assay.Serum Triglycerides Reference Interval Normal <150 mg/dL Borderline high 150 - 199 mg/dL High 200 - 499 mg/dL Very High > or = 500 mg/dL WBC (Bld) [#/Vol] 5.0 10*3/uL 4.4-11.0 [facility] Determination of erythrocyte mean corpuscular volume (MCV)Ordered By: Lucie Kimberly on 10-02-2023 MCV (RBC) [Entitic vol] 89.5 fL 81-99 [facility] Erythrocyte distribution wid th ratioOrdered By: [facility] on 10-02-2023 Erythrocyte distribution width (RBC) [Ratio] 12.3 % 11.6-14.6 [facility] Erythrocyte distribution wid th standard deviationOrdered By: [facility] on 10-02-2023 Erythrocyte distribution width (RBC) [Entitic vol] 40.2 fL 35.1-43.9 [facility] Hematocrit Auto (Bld) [Volum e fraction]Ordered By: [facility] on 10-02-2023 Hematocrit (Bld) [Volume fraction] 42.8 % 37-47 [facility] Laboratory - Chemistry and C hemistry - challengeOrdered By: Luciemendez Harris on 10-02-2023 Cholesterol in HDL [Mass/Vol] 83 mg/dL >40 [facility] Comment on above: The drugs N-Acetylcy steine and Metamizole may falsely depress this assay. Reference Range HDL <40 mg/dL Low HDL Cholesterol HDL >or= 60 mg/dL High HDL Cholesterol Cholesterol in LDL [Mass/Vol] 152 mg/dL 0-130 [facility] CO2 [Moles/Vol] 29.0 mmol/L 21.0-32.0 [facility] Urea nitrogen/Creatinine [Mass ratio] 21.7 mg/mg 10-20 [facility] - Hematology and Cell countsOrdered By: Lucie Harris on 10-02-2023 MCH (RBC) [Entitic mass] 29.5 pg 27.0-32.0 [facility] MCHC (RBC) [Mass/Vol] 32.9 g/dL 32-36 [facility] Platelet mean volume (Bld) [Entitic vol] 9.9 fL 6.2-12.0 [facility] Platelets (Bld) [#/Vol] 202 10*3/uL 150-450 [facility] No Panel InformationOrdered By: Lucie Harris on 10-02-2023 Estimated GFR (MDRD) Amer 103 mL/min >60 [facility] Comment on above: GFR Calc Estimated GFR (MDRD) Non-Af Amer 85 mL/min >60 [facility] Comment on above: Non- GFR Calc VLDL Cholesterol 14 mg/dL 5-40 [facility] RBC Auto (Bld) [#/Vol]Ordere d By: Lucie Harris on 10-02-2023 RBC (Bld) [#/Vol] 4.78 10*6/uL 4.2-5.4 [facility] Serum or plasma calcium neelam urement (mass/volume)Ordered By: Lucie Harris on 10-02-2023 Calcium [Mass/Vol] 9.3 mg/dL 8.5-10.1 [facility] Serum or plasma creatinine m easurement (mass/volume)Ordered By: Lucie Harris on 10-02-2023 Creatinine [Mass/Vol] 0.74 mg/dL 0.55-1.02 [facility] Comment on above: The validity of the calculated GFR & GFRAA in patients over 70 years has not been determined. Clinical correlation is essential. Serum or plasma urea nitroge n measurement (mass/volume)Ordered By: Lucie Harris on 10-02-2023 Urea nitrogen [Mass/Vol] 16 mg/dL 7-18 [facility] Thin prep Papanicolaou smear with manual screeningOrdered By: Lucie Harris on 10-02-2023 Thin prep Papanicolaou smear with manual screening 6 5-15 [facility] Basophil percentageOrdered B y: Archana Hernandez on 06-21-2022 Bilirubin [Mass/Vol] 0.60 mg/dL 0.20-1.00 [facility] Comment on above: For patients on eltr ombopag therapy, use of Dimension [place] TBIL is not recommended. Chloride [Moles/Vol] 106 mmol/L 98-107 [facility] Cholesterol [Mass/Vol] 214 mg/dL <200 [facility] Comment on above: <200 mg/dL Desirable 200-240 mg/dL Borderline >240 mg/dL High Risk Glucose [Mass/Vol] 91 mg/dL 74-106 [facility] Potassium [Moles/Vol] 4.2 mmol/L 3.5-5.1 [facility] Protein [Mass/Vol] 7.4 g/dL 6.4-8.2 [facility] Sodium [Moles/Vol] 141 mmol/L 136-145 [facility] Triglyceride [Mass/Vol] 78 mg/dL <199 [facility] Comment on above: The drugs N-Acetylcy steine and Metamizole may falsely depress this assay.Serum Triglycerides Reference Interval Normal <150 mg/dL Borderline high 150 - 199 mg/dL High 200 - 499 mg/dL Very High > or = 500 mg/dL WBC (Bld) [#/Vol] 4.9 10*3/uL 4.4-11.0 [facility] [place] Blood erythrocytes count (nu mber/volume)Ordered By: Archana Hernandez on 06-21-2022 RBC (Bld) [#/Vol] 5.01 10*6/uL 4.2-5.4 [facility] Blood hemoglobin measurement (mass/volume)Ordered By: Archana Hernandez on 06-21-2022 Hemoglobin (Bld) [Mass/Vol] 14.5 g/dL 12.0-15.0 [facility] Blood platelet mean volumeOr dered By: Archana Hernandez on 06-21-2022 Platelet mean volume (Bld) [Entitic vol] 10.4 fL 6.2-12.0 [facility] Determination of erythrocyte mean corpuscular volume (MCV)Ordered By: Archana Hernandez on 06-21-2022 MCV (RBC) [Entitic vol] 87.8 fL 81-99 [facility] Hematocrit Auto (Bld) [Volum e fraction]Ordered By: Archana Hernandez on 06-21-2022 Hematocrit (Bld) [Volume fraction] 44.0 % 37-47 [facility] Laboratory - Chemistry and C hemistry - challengeOrdered By: Archana Hernandez on 06-21-2022 ALP [Catalytic activity/Vol] 71 U/L 45-117 [facility] ALT [Catalytic activity/Vol] 26 U/L 13-56 [facility] CO2 [Moles/Vol] 31.0 mmol/L 21.0-32.0 [facility] Globulin (S) [Mass/Vol] 3.4 g/dL 2.2-4.2 [facility] Urea nitrogen/Creatinine [Mass ratio] 15.8 mg/mg 10-20 [facility] Laboratory - Hematology and Cell countsOrdered By: Archana Hernandez on 06-21-2022 Erythrocyte distribution width (RBC) [Entitic vol] 39.8 fL 35.1-43.9 [facility] Erythrocyte distribution width (RBC) [Ratio] 12.3 % 11.6-14.6 [facility] MCH (RBC) [Entitic mass] 28.9 pg 27.0-32.0 [facility] MCHC Auto (RBC) [Mass/Vol]Or dered By: Archana Hernandez on 06-21-2022 MCHC (RBC) [Mass/Vol] 33.0 g/dL 32-36 [facility] No Panel InformationOrdered By: Archana Hernandez on 06-21-2022 Estimated GFR (MDRD) Amer 110 mL/min >60 [facility] Comment on above: GFR Calc Estimated GFR (MDRD) Non-Af Amer 91 mL/min >60 [facility] Comment on above: Non- GFR Calc Platelets bldOrdered By: Harry Hernandez on 06-21-2022 Platelets (Bld) [#/Vol] 211 10*3/uL 150-450 [facility] Serum or plasma albumin neelam urement (mass/volume)Ordered By: Archana Hernandez on 06-21-2022 Albumin [Mass/Vol] 4.0 g/dL 3.2-5.0 [facility] [place] Serum or plasma albumin/glob ulin mass ratioOrdered By: Archana Hernandez on 06-21-2022 Albumin/Globulin [Mass ratio] 1.2 {ratio} 0.9-2.4 [facility] Serum or plasma calcium neealm urement (mass/volume)Ordered By: Archana Hernandez on 06-21-2022 Calcium [Mass/Vol] 9.3 mg/dL 8.5-10.1 [facility] [place] Serum or plasma cholesterol in HDL measurement (mass/volume)Ordered By: Archana Hernandez on 06-21-2022 Cholesterol in HDL [Mass/Vol] 77 mg/dL >40 [facility] Comment on above: The drugs N-Acetylcy steine and Metamizole may falsely depress this assay. Reference Range HDL <40 mg/dL Low HDL Cholesterol HDL >or= 60 mg/dL High HDL Cholesterol Serum or plasma cholesterol in VLDL measurement (mass/volume)Ordered By: Archana Hernandez on 06-21-2022 Cholesterol in VLDL [Mass/Vol] 16 mg/dL 5-40 [facility] Serum or plasma creatinine m easurement (mass/volume)Ordered By: Archana Hernandez on 06-21-2022 Creatinine [Mass/Vol] 0.70 mg/dL 0.55-1.02 [facility] Comment on above: The validity of the calculated GFR & GFRAA in patients over 70 years has not been determined. Clinical correlation is essential. Serum or plasma low density lipoprotein (LDL) cholesterol measurement (mass/volume)Ordered By: Archana Hernandez on 06-21-2022 Cholesterol in LDL [Mass/Vol] 121 mg/dL 0-130 [facility] Serum or plasma urea nitroge n measurement (mass/volume)Ordered By: Archana Hernandez on 06-21-2022 Urea nitrogen [Mass/Vol] 11 mg/dL 7-18 [facility] Thin prep Papanicolaou smear with manual screeningOrdered By: Archana Hernandez on 06-21-2022 Thin prep Papanicolaou smear with manual screening 17 U/L 15-37 [facility] Thin prep Papanicolaou smear with manual screening 4 5-15 [facility] CORONAVIRUS PCR - [facility] 02-10-2021 SARS-CoV-2 (COVID-19) RNA SHAN+probe Ql (Unsp spec) Negative Normal NORMAL: NEGATIVE [facility] Comment on above: Performed By: #### 2 [id number] #### [facility],[address] [place], [place] [id number] SEND TO ? YES Normal [facility] Comment on above: Result Comment: BABS MULLEN FAXED TO INFECTION CONTROL. SARS-CoV-2 THIS TEST IS BEING USED UNDER THE FDA EUA PROCEDURE. THIS ASSAY HAS BEEN VALIDATED IN THE [facility] FOR USE WITH NASOPHARYNGEAL SPECIMENS IN [facility]. INTERPRETIVE DATA LABORATORY TEST RESULTS [...] PUBLIC HEALTH AUTHORITIES. Performed By: #### 2 08145 #### [facility],[address] [place], [place] [id number] EMERGENCY REPORTon 0 EMERGENCY REPORT [facility] EMERGENCY ROOM REPORT NAME ACCOUNT SEX AGE ADMIT DISCHARGE PT MED. RECORD# NUMBER DATE DATE TYPE JEANNE [id number] F 60 05/30/20 05/30/20 3 TAMIKO [id number] ROOM: ER DATE OF : 1960 DICTATING [...] of 2 JEANNE, Emergency Room Report TAMIKO RYAN : 1960 05/30/20 14:42 JOB #: [id number] Transcribed By: sher 05/31/20 10:05 Electronically signed by: CHINMAY Escudero D.O. 06/04/20 19:50 Page 2 of 2 JEANNE, Emergency Room Report TAMIKO Normal [facility] CBC + DIFFon 05-30-2020 Baso # 0.10 x10EE3/UL Normal 0.00 - 0.10 [facility] Comment on above: Performed By: #### 2 63110 #### [facility],[address] [place] [address] 21248 Basophils/100 WBC (Bld) 0.8 % Normal 0.0 - 2.0 [facility] Comment on above: Performed By: #### 2 04776 #### [facility],[address] [place] [address] 19106 CBC + DIFF Normal [facility] Comment on above: Result Comment: CBC- COMPLETE BLOOD COUNT Performed By: #### 2 90065 #### [facility],[address] [place] [address] 06337 EO # 0.10 x10EE3/UL Normal 0.00 - 0.50 [facility] Comment on above: Performed By: #### 2 13097 #### [facility],[address] [place] [address] 27166 Eosinophils/100 WBC (Bld) 1.2 % Normal 0.0 - 7.0 [facility] Comment on above: Performed By: #### 2 46079 #### [facility],[address] [place] [address] 77492 Erythrocyte distribution width (RBC) [Ratio] 13.9 % Normal 12.0 - 15.6 [facility] Comment on above: Performed By: #### 2 59603 #### [facility],[address] [place] [address] 65199 Hematocrit (Bld) [Volume fraction] 44.8 % Normal 34.0 - 46.0 [facility] Comment on above: Performed By: #### 2 52583 #### [facility],[address] [place] [address] 01225 Hemoglobin (Bld) [Mass/Vol] 15.4 g/dL Normal 12.0 - 16.0 [facility] Comment on above: Performed By: #### 2 42611 #### [facility],[address] [place] [address] 91171 Lymph # 2.30 x10EE3/UL Normal 0.80 - 2.80 [facility] Comment on above: Performed By: #### 2 84835 #### [facility],[address] [place] [address] Lymphocytes/100 WBC (Bld) 35.1 % Normal 20.0 - 45.0 [facility] Comment on above: Performed By: #### 2 65225 #### [facility],[address] [place], [place] [id number] MANUAL DIFF N/A Normal [facility] Comment on above: Performed By: #### 2 85472 #### [facility],[address] [place] [address] MCH (RBC) [Entitic mass] 30 pg Normal 27 - 33 [facility] Comment on above: Performed By: #### 2 07103 #### [facility],[address] [place] [address] MCHC 34 X10 3 Normal 32 - 36 [facility] Comment on above: Performed By: #### 2 75014 #### [facility],[address] [place], [place] [id number] MCV (RBC) [Entitic vol] 87 fL Normal 80 - 99 [facility] Comment on above: Performed By: #### 2 32254 #### [facility],[address] [place] [address] 57917 Boyd # 0.40 x10EE3/UL Normal 0.20 - 1.00 [facility] Comment on above: Performed By: #### 2 23875 #### [facility],[address] [place] [address] 81978 MONOS % 5.9 % Normal 0.0 - 10.0 [facility] Comment on above: Performed By: #### 2 17763 #### [facility],[address] [place] [address] 07087 Morphology Pasquale (Bld) [Interp] N/A Normal [facility] Comment on above: Result Comment: {CD] Performed By: #### 2 64012 #### [facility],[address] [place] [address] 37106 Neut # 3.70 x10EE3/UL Normal 1.50 - 7.10 [facility] Comment on above: Performed By: #### 2 44514 #### [facility],[address] [place] [address] 80196 Neutrophils/100 WBC (Bld) 57.0 % Normal 46.0 - 76.0 [facility] Comment on above: Performed By: #### 2 00573 #### [facility],[address] [place] [address] 62587 PLATELET 226 x10EE3/UL Normal 150 - 450 [facility] Comment on above: Performed By: #### 2 89178 #### [facility],[address] [place] [address] 42249 Platelet mean volume (Bld) [Entitic vol] 7.8 fL Normal 6.6 - 10.5 [facility] Comment on above: Result Comment: AUTO MATED DIFFERENTIAL Performed By: #### 2 47868 #### [facility],[address] [place] [address] 89479 RBC 5.13 x 10EE6/UL Normal 4.10 - 5.30 [facility] Comment on above: Performed By: #### 2 67419 #### [facility],[address] [place] [address] 84348 WBC 6.6 x 10EE3/UL Normal 4.5 - 10.8 [facility] Comment on above: Performed By: #### 2 01062 #### [facility],[address] [place] [address] 89090 CHEST 2 VIEWSon 05-30-2020 CHEST 2 VIEWS [place] [address] Patient: TAMIKO SHEARER Phone#: : 1960 Age: 60 Gender: F Pt. Type: ER Account: [id number] [place] [facility] [place] Ordering: JAXSON ESCUDERO Exam Date: 05/30/2020/10:31 Family Phys: KUNAL CADENA Charge Code: [id number] Physician: Leon Order #: [id number] DLP Dose#: PROCEDURE: X-RAY CHEST 2 VIEWS COMPARISON: [facility], XR, CHEST 1 VIEW, 04/15/2020, 15:27. INDICATIONS: [...] Turner MD on 05/30/2020 at 13:51 Normal [facility] CMP with eGFRon 05-30-2020 AGE 60 years Normal [facility] Comment on above: Performed By: #### 2 57860 ####[facility],[address] [place] [address] Albumin [Mass/Vol] 4.1 g/dL Normal 3.4 - 5.0 [facility] Comment on above: Performed By: #### 2 94852 ####[facility],[address] [place], [place] [address] Albumin/Globulin [Mass ratio] 1.1 {ratio} Normal 0.9 - 1.6 [facility] Comment on above: Performed By: #### 2 82635 ####[facility],[address] [place] [address] ALK PHOS 75 U/L Normal 46 - 116 [facility] Comment on above: Performed By: #### 2 33719 ####[facility],[address] [place] [address] ALT [Catalytic activity/Vol] 24 U/L Normal 14 - 59 [facility] Comment on above: Performed By: #### 2 85497 ####[facility],[address] [place] [address] Anion gap [Moles/Vol] 12 mmol/L Normal 10 - 20 [facility] Comment on above: Performed By: #### 2 73848 ####[facility],[address] [place] [address] AST [Catalytic activity/Vol] 11 U/L Low 13 - 39 [facility] Comment on above: Performed By: #### 2 25194 ####[facility],[address] [place] [address] B/C RATIO 16 ratio Normal 0 - 30 [facility] Comment on above: Performed By: #### 2 67133 ####[facility],[address] [place] [address] Bilirubin [Mass/Vol] 0.4 mg/dL Normal 0.2 - 1.0 [facility] Comment on above: Performed By: #### 2 34413 ####[facility],[address] [place], [place] [id number] Calcium [Mass/Vol] 9.1 mg/dL Normal 8.5 - 10.1 [facility] Comment on above: Performed By: #### 2 03701 ####[facility],[address] [place], [place] [id number] Chloride [Moles/Vol] 101 mmol/L Normal 98 - 107 [facility] Comment on above: Performed By: #### 2 75231 ####[facility],[address] [place], [place] [phone] CMP with eGFR Normal [facility] Comment on above: Result Comment: COMP REHENSIVE METABOLIC PANEL Performed By: #### 2 30304 ####[facility],[address] [place] [address] CO2 [Moles/Vol] 29.3 mmol/L Normal 21.0 - 32.0 [facility] Comment on above: Performed By: #### 2 13658 ####[facility],[address] [place] [address] Creatinine [Mass/Vol] 0.7 mg/dL Normal 0.5 - 1.0 [facility] Comment on above: Performed By: #### 2 41731 ####[facility],[address] [place] [address] GFR/1.73 sq M.predicted among non-blacks MDRD (S/P/Bld) [Vol rate/Area] mL/min/{1.73_m2} Normal 60 - 999 [facility] Comment on above: Performed By: #### 2 43079 ####[facility],[address] [place] [address] Result Comment: ACCO RDING TO THE NATIONAL KIDNEY DISEASE EDUCATION PROGRAM(NKDE), A NORMAL eGFR IS A VALUE GREATER THAN OR EQUAL TO 60 ML/MIN/1.73 SQ METERS. CHRONIC KIDNEY DISEASE: <60mL/MIN/1.73 SQ METERS KIDNEY FAILURE: <15mL/MIN/1.73 SQ METERS THIS TEST SHOULD ONLY BE USED FOR PATIENTS 18 YEARS OF AGE AND OLDER. Globulin (S) [Mass/Vol] 3.9 g/dL High 1.5 - 3.8 [facility] Comment on above: Performed By: #### 2 63170 ####[facility],[address] [place] [address] Glucose [Mass/Vol] 118 mg/dL High 74 - 106 [facility] Comment on above: Performed By: #### 2 24861 ####[facility],[address],[place] [address] Potassium [Moles/Vol] 3.9 mmol/L Normal 3.5 - 5.1 [facility] Comment on above: Performed By: #### 2 04578 ####[facility],[address] [place] [address] 44988 Protein [Mass/Vol] 8.0 g/dL Normal 6.4 - 8.2 [facility] Comment on above: Performed By: #### 2 21186 ####[facility],[address] [place] [address] 69883 Sodium [Moles/Vol] 138 mmol/L Normal 136 - 145 [facility] Comment on above: Performed By: #### 2 53591 ####[facility],[address] [place] [address] 50309 Urea nitrogen [Mass/Vol] 11 mg/dL Normal 7 - 18 [facility] Comment on above: Performed By: #### 2 22373 ####[facility],[address] [place] [address] CHEST (PE PROTOCOL)on CT CHEST (PE PROTOCOL) [place] [address] Patient: TAMIKO SHEARER Phone#: : 1960 Age: 60 Gender: F Pt. Type: ER Account: [id number] Location: 052 Ordering: JAXSON ESCUDERO Exam Date: 05/30/2020/11:51 Family Phys: KUNAL CADENA Charge Code: [id number] Physician: Leon Order #: [id number] DLP Dose#: PROCEDURE: CT CHEST WITH CONTRAST FOR PE COMPARISON: [facility], CT, CHEST PE W CON, 04/15/2020, 18:51. [...] pulmonary embolism. No acute pulmonary parenchymal abnormality. [place] [address] Patient: TAMIKO SHEARER Phone#: : 1960 Age: 60 Gender: F Pt. Type: ER Account: [id number] Location: 052 Ordering: JAXSON ESCUDERO Exam Date: 05/30/2020/11:51 Family Phys: KUNAL CADENA Charge Code: [id number] Physician: Leon Order #: [id number] DLP Dose#: Dictated by: Petra Turner MD on 05/30/2020 at 12:10 Approved by: Petra Turner MD on 05/30/2020 at 12:16 Normal [facility] CULTURE BLOODon 05-30-2020 Microscopic examination of blood, culture CULTURE BLOOD CULTURE BLOOD SET: 1 of 2 24HOUR REPORT NEGATIVE 48HOUR REPORT NEGATIVE 72HOUR REPORT NEGATIVE M I C R O B I O L O G Y R E P O R T FINAL ----- Antimicrobial Susceptibility and Organism Identification Report ------ Specimen Number : [id number] Requested : 05/30/20 Specimen Source : BLOOD Collected : 05/30/20 09:31 [facility] : EMERGENCY ROOM Received : 05/30/20 09:31 Requesting Physician : KENA Patient/Specimen Tests and Comments Specimen Comments ------ ------ FINAL REPORT: NO GROWTH AT 5 DAYS Tech : Source : BLOOD ID # : [id number] FINAL Report Date : / / : Collected : 05/30/20 09:31 06/04/20.1445.MARA. 06/04/20.1445.MARA.COMPLETE 1 of 2 NEGATIVE NEGATIVE NEGATIVE Normal [facility] Comment on above: Performed By: #### 2 01864 ####[facility],[address] [place], [place] [id number] Microscopic examination of blood, culture CULTURE BLOOD CULTURE BLOOD SET: 2 of 2 24HOUR REPORT NEGATIVE 48HOUR REPORT NEGATIVE 72HOUR REPORT NEGATIVE M I C R O B I O L O G Y R E P O R T FINAL ----- Antimicrobial Susceptibility and Organism Identification Report ------ Specimen Number : [id number] Requested : 05/30/20 Specimen Source : BLOOD Collected : 05/30/20 09:31 [facility] : EMERGENCY ROOM Received : 05/30/20 09:31 Requesting Physician : KENA Patient/Specimen Tests and Comments Specimen Comments ------ ------ FINAL REPORT: NO GROWTH AT 5 DAYS Tech : Source : BLOOD ID # : [id number] FINAL Report Date : / / : Collected : 05/30/20 09:31 06/04/20.1445.KLS. 06/04/20.1445.KLS.COMPLETE 2 of 2 NEGATIVE NEGATIVE NEGATIVE Normal [facility] Comment on above: Performed By: #### 2 45003 ####[facility],[address] [place] [address] 51061 D-DIMER, QUANTITATIVEon 05-06 D-DIMER QUANT 176 ng/ml Normal 0 - 230 [facility] Comment on above: Performed By: #### 2 38189 #### [facility],[address] [place] [address] 17381 D-DIMER, QUANTITATIVE Normal [facility] Comment on above: Result Comment: ABBEY T D-DIMER Performed By: #### 2 06756 #### [facility],[address] [place] [address] 29417 LACTATEon 05-30-2020 Lactate [Moles/Vol] 0.6 mmol/L Normal 0.4 - 2.0 [facility] Comment on above: Performed By: #### 2 66066 ####[facility],[address] [place] [address] 99358 NT-proBNPon 05-30-2020 Natriuretic peptide B (Bld) [Mass/Vol] 45 pg/mL Normal 0 - 125 [facility] Comment on above: Performed By: #### 2 97169 #### [facility],[address] [place] [address] 92739 TROPONIN I, HIGH SENSITIVITY on 05-30-2020 HS TROPONIN 5.1 pg/mL Normal 0.0 - 51.4 [facility] Comment on above: Performed By: #### 2 61837 #### [facility],[address] [place] [address] 49984 HS TROPONIN <4.0 Normal 0.0 - 51.4 [facility] Comment on above: Performed By: #### 2 86257 ####[facility],[address] [place] [address] 11877 EMERGENCY REPORTon 0 EMERGENCY REPORT [facility] EMERGENCY ROOM REPORT NAME ACCOUNT SEX AGE ADMIT DISCHARGE PT MED. RECORD# NUMBER DATE DATE TYPE JEANNE [id number] F 60 04/15/20 1 TAMIKO [id number] ROOM: [facility] DATE OF : 1960 DICTATING PHYSICIAN: Kunal [...] Kunal Tapia MD 04/15/20 16:29 JOB #: [id number] Transcribed By: [email or web address] 04/16/20 11:25 Electronically signed by: Kunal Tapia M.D. 05/04/20 21:18 Page 1 of 1 JEANNE, Emergency Room Report TAMIKO RYAN : 1960 Page 2 of 1 JEANNE, Emergency Room Report TAMIKO Normal [facility] EMERGENCY REPORT [facility] EMERGENCY ROOM REPORT NAME ACCOUNT SEX AGE ADMIT DISCHARGE PT MED. RECORD# NUMBER DATE DATE TYPE JEANNE [id number] F 60 04/15/20 1 TAMIKO [id number] ROOM: 304 DATE OF : 1960 DICTATING [...] Kunal Tapia MD 04/15/20 18:42 JOB #: [id number] Transcribed By: am 04/16/20 12:47 Electronically signed by: Kunal Tapia M.D. 05/04/20 21:15 Page 1 of 1 JEANNE, Emergency Room Report TAMIKO Normal [facility] EMERGENCY REPORT [facility] EMERGENCY ROOM REPORT NAME ACCOUNT SEX AGE ADMIT DISCHARGE PT MED. RECORD# NUMBER DATE DATE TYPE JEANNE [id number] F 60 04/15/20 1 TAMIKO [id number] ROOM: 304 DATE OF : 1960 DICTATING PHYSICIAN: Kunal Tapia CHIEF COMPLAINT: Tachycardia. HISTORY OF PRESENT ILLNESS: This is a 60-year-old female who developed COVID19 symptoms at the end of March. She was tested April 06 and was COVID positive. Her symptoms have [...] Kunal Tapia MD 04/15/20 16:14 JOB #: [id number] Transcribed By: sher 04/16/20 11:40 Electronically signed by: Kunal Tapia M.D. 05/04/20 21:15 Page 1 of 1 JEANNE, Emergency Room Report TAMIKO Jerson [facility] EMERGENCY REPORTon 0 EMERGENCY REPORT [facility] EMERGENCY ROOM REPORT NAME ACCOUNT SEX AGE ADMIT DISCHARGE PT MED. RECORD# NUMBER DATE DATE TYPE JEANNE [id number] F 60 04/15/20 3 TAMIKO [id number] ROOM: ER DATE OF : 1960 DICTATING PHYSICIAN: Kaveh Rutherford TIME SEEN: I am seeing the patient at 7 p.m. CHIEF COMPLAINT/HISTORY OF PRESENT ILLNESS: This is a 60-year-old white female seen here earlier by Dr. Tapia for complaint of tachycardia. She denies any [...] care is Dr. Kunal Cadena at [facility] in [place], [place]. Patient is alert and oriented x3. [...] No motor or sensory deficits noted. Hand checker/stocker is strong and symmetric. Skin is warm [...] minute with a right bundle branch block. [place] was approximately 90 degrees. I did review [...] those results (more content not included)... Normal [facility] [facility] EMERGENCY REPORT [facility] EMERGENCY ROOM REPORT NAME ACCOUNT SEX AGE ADMIT DISCHARGE PT MED. RECORD# NUMBER DATE DATE TYPE JEANNE [id number] F 60 04/15/20 1 TAMIKO [id number] ROOM: 304 DATE OF : 1960 DICTATING [...] Kaveh Rutherford DO 04/15/20 20:48 JOB #: [id number] Transcribed By: sher 04/16/20 12:40 Electronically signed by: E-Sign: Dr. Kaveh Rutherford D.O. 04/21/20 09:31 Page 1 of 1 [facility], Emergency Room Report TAMIKO Normal [facility] APTTon 04-16-2020 aPTT Coag (Bld) [Time] 28.6 s Normal 25.4 - 38.4 [facility] Comment on above: Performed By: #### 2 41895 #### [facility],[address] [place] [address] aPTT Coag (Bld) [Time] 30.1 s Normal 25.4 - 38.4 [facility] Comment on above: Performed By: #### 2 81829 #### [facility],[address] [place], [place] [id number] C-REACTIVE PROTEINon 020 CRP 0.80 mg/dl Normal 0.00 - 0.90 [facility] Comment on above: Performed By: #### 2 82021 ####[facility],[address] [place], [place] [id number] CBC + DIFFon 04-16-2020 Baso # 0.00 x10EE3/UL Normal 0.00 - 0.10 [facility] Comment on above: Performed By: #### 2 18857 ####[place] [address] Basophils/100 WBC (Bld) 0.4 % Normal 0.0 - 2.0 [facility] Comment on above: Performed By: #### 2 31625 ####[facility],[address] [place] [address] CBC + DIFF Normal [facility] Comment on above: Result Comment: CBC- COMPLETE BLOOD COUNT Performed By: #### 2 57089 ####[place] [address] EO # 0.00 x10EE3/UL Normal 0.00 - 0.50 [facility] Comment on above: Performed By: #### 2 63057 ####[place] [address] Eosinophils/100 WBC (Bld) 0.0 % Normal 0.0 - 7.0 [facility] Comment on above: Performed By: #### 2 84701 ####[place] [address] Erythrocyte distribution width (RBC) [Ratio] 13.1 % Normal 12.0 - 15.6 [facility] Comment on above: Performed By: #### 2 46939 ####[place] [address] Hematocrit (Bld) [Volume fraction] 39.6 % Normal 34.0 - 46.0 [facility] Comment on above: Performed By: #### 2 80034 ####[place] [address] Hemoglobin (Bld) [Mass/Vol] 13.5 g/dL Normal 12.0 - 16.0 [facility] Comment on above: Performed By: #### 2 58885 ####[facility],[address] [place] [address] Lymph # 1.50 x10EE3/UL Normal 0.80 - 2.80 [facility] Comment on above: Performed By: #### 2 78637 ####[facility],[address] [place] [address] Lymphocytes/100 WBC (Bld) 18.8 % Low 20.0 - 45.0 [facility] Comment on above: Performed By: #### 2 30108 ####[facility],[address] [place] [address] MANUAL DIFF N/A Normal [facility] Comment on above: Performed By: #### 2 43701 ####[facility],[address] [place] [address] MCH (RBC) [Entitic mass] 30 pg Normal 27 - 33 [facility] Comment on above: Performed By: #### 2 75311 ####[place] [address] MCHC 34 X10 3 Normal 32 - 36 [facility] Comment on above: Performed By: #### 2 57479 ####[facility],[address] [place] [address] MCV (RBC) [Entitic vol] 87 fL Normal 80 - 99 [facility] Comment on above: Performed By: #### 2 16047 ####[facility],[address] [place] [address] Boyd # 0.10 x10EE3/UL Low 0.20 - 1.00 [facility] Comment on above: Performed By: #### 2 42677 ####[place] [address] MONOS % 1.3 % Normal 0.0 - 10.0 [facility] Comment on above: Performed By: #### 2 16060 ####[facility],[address],[place] [address] Morphology Pasquale (Bld) [Interp] N/A Normal [facility] Comment on above: Result Comment: {CD] Performed By: #### 2 21562 ####[facility],[address] [place] [address]329 Neut # 6.50 x10EE3/UL Normal 1.50 - 7.10 [facility] Comment on above: Performed By: #### 2 61962 ####[facility],[address] [place] [address] Neutrophils/100 WBC (Bld) 79.5 % High 46.0 - 76.0 [facility] Comment on above: Performed By: #### 2 80320 ####[facility],[address] [place] [address] PLATELET 350 x10EE3/UL Normal 150 - 450 [facility] Comment on above: Performed By: #### 2 78182 ####[facility],[address] [place] [address] Platelet mean volume (Bld) [Entitic vol] 8.2 fL Normal 6.6 - 10.5 [facility] Comment on above: Result Comment: AUTO MATED DIFFERENTIAL Performed By: #### 2 84433 ####[facility],[address] [place] [address] 24629 RBC 4.57 x 10EE6/UL Normal 4.10 - 5.30 [facility] Comment on above: Performed By: #### 2 98670 ####[facility],[address] [place], [place] [id number] WBC 8.1 x 10EE3/UL Normal 4.5 - 10.8 [facility] Comment on above: Performed By: #### 2 31120 ####[facility],[address] [place], [place] [id number] CMP with eGFRon 04-16-2020 AGE 60 years Normal [facility] Comment on above: Performed By: #### 2 97465 ####[facility],[address] [place] [address] 23536 Albumin [Mass/Vol] 3.4 g/dL Normal 3.4 - 5.0 [facility] Comment on above: Performed By: #### 2 91280 ####[facility],[address] [place] [address] 52822 Albumin/Globulin [Mass ratio] 0.8 {ratio} Low 0.9 - 1.6 [facility] Comment on above: Performed By: #### 2 95341 ####[facility],[address] [place] [address] 19560 ALK PHOS 66 U/L Normal 46 - 116 [facility] Comment on above: Performed By: #### 2 18512 ####[facility],[address] [place] [address] 01991 ALT [Catalytic activity/Vol] 27 U/L Normal 14 - 59 [facility] Comment on above: Performed By: #### 2 47855 ####[facility],[address] [place] [address] 90530 Anion gap [Moles/Vol] 14 mmol/L Normal 10 - 20 [facility] Comment on above: Performed By: #### 2 42809 ####[facility],[address] [place] [address] 57024 AST [Catalytic activity/Vol] 17 U/L Normal 13 - 39 [facility] Comment on above: Performed By: #### 2 93983 ####[facility],[address] [place] [address] 62487 B/C RATIO 10 ratio Normal 0 - 30 [facility] Comment on above: Performed By: #### 2 04764 ####[facility],[address] [place] [address] 59271 Bilirubin [Mass/Vol] 0.2 mg/dL Normal 0.2 - 1.0 [facility] Comment on above: Performed By: #### 2 48803 ####[facility],[address] [place] [address] 00507 Calcium [Mass/Vol] 8.7 mg/dL Normal 8.5 - 10.1 [facility] Comment on above: Performed By: #### 2 84819 ####[facility],[address] [place] [address] 96030 Chloride [Moles/Vol] 104 mmol/L Normal 98 - 107 [facility] Comment on above: Performed By: #### 2 51874 ####[facility],[address] [place] [address] 98780 CMP with eGFR Normal [facility] Comment on above: Result Comment: COMP REHENSIVE METABOLIC PANEL Performed By: #### 2 01080 ####[facility],[address] [place] [address] 47713 CO2 [Moles/Vol] 23.2 mmol/L Normal 21.0 - 32.0 [facility] Comment on above: Performed By: #### 2 96953 ####[facility],[address] [place] [address] 21827 Creatinine [Mass/Vol] 0.7 mg/dL Normal 0.5 - 1.0 [facility] Comment on above: Performed By: #### 2 91329 ####[facility],[address] [place] [address] 70093 GFR/1.73 sq M.predicted among non-blacks MDRD (S/P/Bld) [Vol rate/Area] mL/min/{1.73_m2} Normal 60 - 999 [facility] Comment on above: Performed By: #### 2 83287 ####[facility],[address] [place] [address] 26001 Result Comment: ACCO RDING TO THE NATIONAL KIDNEY DISEASE EDUCATION PROGRAM(NKDE), A NORMAL eGFR IS A VALUE GREATER THAN OR EQUAL TO 60 ML/MIN/1.73 SQ METERS. CHRONIC KIDNEY DISEASE: <60mL/MIN/1.73 SQ METERS KIDNEY FAILURE: <15mL/MIN/1.73 SQ METERS THIS TEST SHOULD ONLY BE USED FOR PATIENTS 18 YEARS OF AGE AND OLDER. Globulin (S) [Mass/Vol] 4.3 g/dL High 1.5 - 3.8 [facility] Comment on above: Performed By: #### 2 27969 ####[facility],[address] [place] [address] 32230 Glucose [Mass/Vol] 153 mg/dL High 74 - 106 [facility] Comment on above: Performed By: #### 2 13246 ####[facility],[address] [place] [address] 17301 Potassium [Moles/Vol] 4.1 mmol/L Normal 3.5 - 5.1 [facility] Comment on above: Performed By: #### 2 40381 ####[facility],[address] [place] [address] 15283 Protein [Mass/Vol] 7.7 g/dL Normal 6.4 - 8.2 [facility] Comment on above: Performed By: #### 2 64253 ####[facility],[address] [place] [address] 12080 Sodium [Moles/Vol] 137 mmol/L Normal 136 - 145 [facility] Comment on above: Performed By: #### 2 07010 ####[facility],[address] [place] [address] 18074 Urea nitrogen [Mass/Vol] 7 mg/dL Normal 7 - 18 [facility] Comment on above: Performed By: #### 2 08155 ####[facility],[address] [place] [address] 12523 CPKon 04-16-2020 CPK 90 U/L Normal 26 - 192 [facility] Comment on above: Performed By: #### 2 70741 ####[facility],[address] [place] [address] 53826 D-DIMER, QUANTITATIVEon 04-05 D-DIMER QUANT 265 ng/ml High 0 - 230 [facility] Comment on above: Performed By: #### 2 69016 #### [facility],[address] [place] [address] 13599 D-DIMER, QUANTITATIVE Normal [facility] Comment on above: Result Comment: ABBEY T D-DIMER Performed By: #### 2 09756 #### [facility],[address] [place] [address] 57824 LDHon 04-16-2020 LDH 195 U/L Normal 81 - 234 [facility] Comment on above: Performed By: #### 2 62973 ####[facility],[address] [place] [address] 16839 PROTHROMBIN TIME AND INRon 06-16-2019 INR Coag (PPP) [Relative time] 1.1 {INR} Normal 0.8 - 1.2 [facility] Comment on above: Result Comment: T HE [...] MECHANICAL HEART VALVES Performed By: #### 2 37660 ####[facility],[address] [place] [address] 68791 PROTHROMBIN TIME AND INR Normal [facility] Comment on above: Result Comment: PROT HROMBIN TIME AND INR Performed By: #### 2 43488 ####[facility],[address] [place] [address] 40487 PT-COUMADIN 11.5 sec Normal 9.3 - 14.1 [facility] Comment on above: Performed By: #### 2 97093 ####[facility],[address] [place] [address] 21495 INR Coag (PPP) [Relative time] 1.0 {INR} Normal 0.8 - 1.2 [facility] Comment on above: Result Comment: T HE [...] MECHANICAL HEART VALVES Performed By: #### 2 58090 ####[facility],[address] [place] [address] PROTHROMBIN TIME AND INR Normal [facility] Comment on above: Result Comment: PROT HROMBIN TIME AND INR Performed By: #### 2 58635 ####[facility],[address] [place] [address] PT-COUMADIN 11.1 sec Normal 9.3 - 14.1 [facility] Comment on above: Performed By: #### 2 32314 ####[facility],[address] [place] [address] TROPONIN I, HIGH SENSITIVITY on 04-16-2020 HS TROPONIN 5.5 pg/mL Normal 0.0 - 51.4 [facility] Comment on above: Performed By: #### 2 06031 #### [facility],[address] [place], [place] [id number] ARTERIAL BLOOD GAS ANALYSISo n 04-15-2020 ALLENS TEST Positive Normal [facility] Comment on above: Result Comment: { TI ME CALLED 2020 Performed By: #### 2 45152 #### [facility],[address] [place], [place] [id number] ARTERIAL BLOOD GAS ANALYSIS Normal [facility] Comment on above: Result Comment: JOSE RIAL BLOOD GAS Performed By: #### 2 48799 #### [facility],[address] [place] [address] 66630 BE 0 Normal -2 - 3 [facility] Comment on above: Performed By: #### 2 25382 #### [facility],[address] [place] [address] HCO3 (Bld) [Moles/Vol] 25 mmol/L High 20 - 24 [facility] Comment on above: Performed By: #### 2 32676 #### [facility],[address] [place] [address] Heart rate 114 /min Normal [facility] Comment on above: Performed By: #### 2 73542 #### [facility],[address] [place] [address] MODALITY RA Normal [facility] Comment on above: Performed By: #### 2 09785 #### [facility],[address] [place] [address] PCO2 41 mm Hg Normal 35 - 45 [facility] Comment on above: Performed By: #### 2 98975 #### [facility],[address] [place] [address] pH (Bld) 7.39 [pH] Normal 7.35 - 7.45 [facility] Comment on above: Performed By: #### 2 07653 #### [facility],[address] [place] [address] PO2 74 mm Hg Low 80 - 105 [facility] Comment on above: Performed By: #### 2 36376 #### [facility],[address] [place] [address] SAMPLE SITE RR Normal [facility] Comment on above: Performed By: #### 2 66492 #### [facility],[address] [place], [place] [id number] SaO2 95 Normal 95 - 98 [facility] Comment on above: Result Comment: TIME RESULT CALLED _2019 04/15/20.2020.YUDITH. { FIO2/LPM 21% Performed By: #### 2 46661 #### [facility],[address] [place] [address] TOTAL RR 20 Normal [facility] Comment on above: Performed By: #### 2 30244 #### [facility],[address] [place] [address] 36704 VENT N/A Normal [facility] Comment on above: Performed By: #### 2 74715 #### [facility],[address] [place] [address] 88755 BMP with eGFRon 04-15-2020 AGE 60 years Normal [facility] Comment on above: Performed By: #### 2 00772 #### [facility],[address] [place] [address] 42035 Anion gap [Moles/Vol] 11 mmol/L Normal 10 - 20 [facility] Comment on above: Performed By: #### 2 62755 #### [facility],[address] [place] [address] 67970 BMP with eGFR Normal [facility] Comment on above: Result Comment: BASI C METABOLIC PANEL Performed By: #### 2 54497 #### [facility],[address] [place] [address] 68074 Calcium [Mass/Vol] 9.1 mg/dL Normal 8.5 - 10.1 [facility] Comment on above: Performed By: #### 2 04848 #### [facility],[address] [place] [address] 44811 Chloride [Moles/Vol] 102 mmol/L Normal 98 - 107 [facility] Comment on above: Performed By: #### 2 95601 #### [facility],[address] [place] [address] 14082 CO2 [Moles/Vol] 28.1 mmol/L Normal 21.0 - 32.0 [facility] Comment on above: Performed By: #### 2 39066 #### [facility],[address] [place] [address] 22123 Creatinine [Mass/Vol] 0.7 mg/dL Normal 0.5 - 1.0 [facility] Comment on above: Performed By: #### 2 31432 #### [facility],[address] [place] [address] 74046 GFR/1.73 sq M.predicted among non-blacks MDRD (S/P/Bld) [Vol rate/Area] mL/min/{1.73_m2} Normal 60 - 999 [facility] Comment on above: Performed By: #### 2 77048 #### [facility],[address] [place] [address] 31092 Result Comment: ACCO RDING TO THE NATIONAL KIDNEY DISEASE EDUCATION PROGRAM(NKDE), A NORMAL eGFR IS A VALUE GREATER THAN OR EQUAL TO 60 ML/MIN/1.73 SQ METERS. CHRONIC KIDNEY DISEASE: <60mL/MIN/1.73 SQ METERS KIDNEY FAILURE: <15mL/MIN/1.73 SQ METERS THIS TEST SHOULD ONLY BE USED FOR PATIENTS 18 YEARS OF AGE AND OLDER. Glucose [Mass/Vol] 179 mg/dL High 74 - 106 [facility] Comment on above: Performed By: #### 2 48360 #### [facility],[address] [place] [address] 10842 Potassium [Moles/Vol] 4.0 mmol/L Normal 3.5 - 5.1 [facility] Comment on above: Performed By: #### 2 58648 #### [facility],[address] [place] [address] 30628 Sodium [Moles/Vol] 137 mmol/L Normal 136 - 145 [facility] Comment on above: Performed By: #### 2 21871 #### [facility],[address] [place] [address] 99014 Urea nitrogen [Mass/Vol] 11 mg/dL Normal 7 - 18 [facility] Comment on above: Performed By: #### 2 77840 #### [facility],[address] [place] [address] 51265 C-REACTIVE PROTEINon 020 CRP 1.00 mg/dl High 0.00 - 0.90 [facility] Comment on above: Performed By: #### 2 49860 #### [facility],[address] [place] [address] 21067 CBC + DIFFon 04-15-2020 Baso # 0.10 x10EE3/UL Normal 0.00 - 0.10 [facility] Comment on above: Performed By: #### 2 10605 ####[facility],[address] [place] [address] 08097 Basophils/100 WBC (Bld) 0.9 % Normal 0.0 - 2.0 [facility] Comment on above: Performed By: #### 2 01141 ####[facility],[address] [place] [address] 40820 CBC + DIFF Normal [facility] Comment on above: Result Comment: CBC- COMPLETE BLOOD COUNT Performed By: #### 2 74021 ####[facility],[address] [place] [address] 04092 EO # 0.10 x10EE3/UL Normal 0.00 - 0.50 [facility] Comment on above: Performed By: #### 2 83819 ####[facility],[address] [place] [address] 98621 Eosinophils/100 WBC (Bld) 1.9 % Normal 0.0 - 7.0 [facility] Comment on above: Performed By: #### 2 49834 ####[facility],[address] [place] [address] 30460 Erythrocyte distribution width (RBC) [Ratio] 13.0 % Normal 12.0 - 15.6 [facility] Comment on above: Performed By: #### 2 35366 ####[facility],[address] [place] [address] 77652 Hematocrit (Bld) [Volume fraction] 41.4 % Normal 34.0 - 46.0 [facility] Comment on above: Performed By: #### 2 29918 ####[facility],[address] [place] [address] 80313 Hemoglobin (Bld) [Mass/Vol] 14.0 g/dL Normal 12.0 - 16.0 [facility] Comment on above: Performed By: #### 2 34729 ####[facility],[address] [place] [address] Lymph # 2.10 x10EE3/UL Normal 0.80 - 2.80 [facility] Comment on above: Performed By: #### 2 58238 ####[facility],[address] [place] [address] Lymphocytes/100 WBC (Bld) 34.9 % Normal 20.0 - 45.0 [facility] Comment on above: Performed By: #### 2 15060 ####[facility],[address] [place] [address] MANUAL DIFF N/A Normal [facility] Comment on above: Performed By: #### 2 01637 ####[facility],[address] [place] [address] MCH (RBC) [Entitic mass] 29 pg Normal 27 - 33 [facility] Comment on above: Performed By: #### 2 53791 ####[facility],[address] [place] [address] MCHC 34 X10 3 Normal 32 - 36 [facility] Comment on above: Performed By: #### 2 96628 ####[facility],[address] [place] [address] MCV (RBC) [Entitic vol] 86 fL Normal 80 - 99 [facility] Comment on above: Performed By: #### 2 31688 ####[facility],[address] [place] [address] Boyd # 0.40 x10EE3/UL Normal 0.20 - 1.00 [facility] Comment on above: Performed By: #### 2 30233 ####[facility],[address] [place] [address] MONOS % 6.5 % Normal 0.0 - 10.0 [facility] Comment on above: Performed By: #### 2 76905 ####[facility],[address] [place] [address] 32451 Morphology Pasquale (Bld) [Interp] N/A Normal [facility] Comment on above: Result Comment: {CD] Performed By: #### 2 12774 ####[facility],[address] [place] [address] 02564 Neut # 3.30 x10EE3/UL Normal 1.50 - 7.10 [facility] Comment on above: Performed By: #### 2 31609 ####[place] [address] Neutrophils/100 WBC (Bld) 55.8 % Normal 46.0 - 76.0 [facility] Comment on above: Performed By: #### 2 19878 ####[place] [address] PLATELET 340 x10EE3/UL Normal 150 - 450 [facility] Comment on above: Performed By: #### 2 52756 ####[facility] [facility],[address] [place] [address] Platelet mean volume (Bld) [Entitic vol] 8.0 fL Normal 6.6 - 10.5 [facility] Comment on above: Result Comment: AUTO MATED DIFFERENTIAL Performed By: #### 2 [id number] ####[facility],[address] [place] [address] RBC 4.79 x 10EE6/UL Normal 4.10 - 5.30 [facility] Comment on above: Performed By: #### 2 [id number] ####[address] [address] WBC 5.9 x 10EE3/UL Normal 4.5 - 10.8 [facility] Comment on above: Performed By: #### 2 [id number] ####[facility],[address] [place] [address] CHEST 1 VIEWon 04-15-2020 CHEST [address] [address] Patient: TAMIKO SHEARER Phone#: : 1960 Age: 60 Gender: F Pt. Type: ER Account: [id number] Location: 052 Ordering: DR. KUNAL TAPIA Exam Date: 04/15/2020/15:27 Family Phys: Charge Code: [id number] Physician: Leon Order #: [id number] DLP Dose#: PROCEDURE: X-RAY CHEST 1 VIEW [...] Turner MD on 04/15/2020 at 15:59 Normal [facility] CT CHEST (PE PROTOCOL)on CT CHEST (PE PROTOCOL) [address] [address] Patient: TAMIKO SHEARER Phone#: : 1960 Age: 60 Gender: F Pt. Type: ER Account: [id number] Location: 052 Ordering: DR. KUNAL TAPIA Exam Date: 04/15/2020/18:51 Family Phys: Charge Code: 803744 Physician: Leon Order #: [id number] DLP Dose#: 14.40mGy PROCEDURE: CT CHEST WITH CONTRAST FOR PE COMPARISON: [facility], CHEST 1 VIEW, 04/15/2020, 15:27. INDICATIONS: Embolism. [...] lower lobe pneumonia 2. No pulmonary embolism. [place] [address] Patient: TAMIKO SHEARER Phone#: : 1960 Age: 60 Gender: F Pt. Type: ER Account: [id number] Location: [facility] Ordering: DR. KUNAL TAPIA Exam Date: 04/15/2020/18:51 Family Phys: Charge Code: 827907 Physician: Leon Order #: [id number] DLP Dose#: 14.40mGy Dictated by: Petra Turner MD on 04/15/2020 at 19:04 Approved by: Petra Turner MD on 04/15/2020 at 19:11 Normal [facility] CULTURE BLOODon 04-15-2020 Microscopic examination of blood, culture CULTURE BLOOD CULTURE BLOOD SET: 2 of 2 24HOUR REPORT NEGATIVE 48HOUR REPORT NEGATIVE 72HOUR REPORT NEGATIVE M I C R O B I O L O G Y R E P O R T FINAL ----- Antimicrobial Susceptibility and Organism Identification Report ------ Specimen Number : [id number] Requested : 04/15/20 Specimen Source : BLOOD Collected : 04/15/20 19:48 [place] of Isolation : EMERGENCY ROOM Received : 04/15/20 19:48 Requesting Physician : KHUSHBOO Patient/Specimen Tests and Comments Specimen Comments ------ ------ FINAL REPORT: NO GROWTH AT 5 DAYS Tech : Source : BLOOD ID # : [id number] FINAL Report Date : / / : Collected : 04/15/20 19:48 04/21/20.0744.BKO. 04/21/20.0744.BKO.COMPLETE 2 of 2 NEGATIVE NEGATIVE NEGATIVE Normal [facility] Comment on above: Performed By: #### 2 [id number] ####[facility],[address] [place] [address] Microscopic examination of blood, culture CULTURE BLOOD CULTURE BLOOD SET: 1 of 2 24HOUR REPORT NEGATIVE 48HOUR REPORT NEGATIVE 72HOUR REPORT NEGATIVE M I C R O B I O L O G Y R E P O R T FINAL ----- Antimicrobial Susceptibility and Organism Identification Report ------ Specimen Number : [id number] Requested : 04/15/20 Specimen Source : BLOOD Collected : 04/15/20 19:48 [place] of Isolation : EMERGENCY ROOM Received : 04/15/20 19:48 Requesting Physician : KHUSHBOO Patient/Specimen Tests and Comments Specimen Comments ------ ------ FINAL REPORT: NO GROWTH AT 5 DAYS Tech : Source : BLOOD ID # : [id number] FINAL Report Date : / / : Collected : 04/15/20 19:48 04/21/20.743.BKO. 04/21/20.BKO.COMPLETE 1 of 2 NEGATIVE NEGATIVE NEGATIVE Normal [facility] Comment on above: Performed By: #### 2 [id number] ####[address] [address] D-DIMER, QUANTITATIVEon 04-05 D-DIMER QUANT 253 ng/ml High 0 - 230 [facility] Comment on above: Performed By: #### 2 [id number] #### [facility],[address] [place] [address] D-DIMER, QUANTITATIVE Normal [facility] Comment on above: Result Comment: ABBEY T D-DIMER Performed By: #### 2 71883 #### [facility],[address] [place] [address] LACTATEon 04-15-2020 Lactate [Moles/Vol] 1.1 mmol/L Normal 0.4 - 2.0 [facility] Comment on above: Performed By: #### 2 06184 #### [facility],[address] [place] [address] MAGNESIUMon 04-15-2020 Magnesium [Mass/Vol] 2.3 mg/dL Normal 1.8 - 2.4 [facility] Comment on above: Performed By: #### 2 80879 #### [place] [address],[place] [address] TROPONIN I, HIGH SENSITIVITY on 04-15-2020 HS TROPONIN 4.3 pg/mL Normal 0.0 - 51.4 [facility] Comment on above: Performed By: #### 2 49079 #### [facility],[address] [place] [address] CORONAVIRUS PCR [CCL]on REF LAB REPORT Positive Normal [facility] Comment on above: Performed By: #### 2 34470 ####[facility],[address] [place] [address] SARS-CoV-2 (COVID-19) RNA SHAN+probe Ql (Unsp spec) Nasopharyngeal Swab Normal [facility] Comment on above: Result Comment: Call ed to and read back by: Jessie Lovering [facility] 04/09/2020 0239 by Juan Antonio Bowen. Corrected on 04/09 AT 0250: Previously reported as U Performed By: #### 2 [id number] ####[facility],[address] [place] [address] SARS-CoV-2 (COVID-19) RNA SHAN+probe Ql (Unsp spec) Positive Abnormal [facility] Comment on above: Result Comment: Posi tive for COVID19 (SARS CoV2) by PCR.(*) This test was developed and its performance characteristics determined by [facility]. This test has been authorized by FDA under an Emergency Use Authorization (EUA). This test has been validated in accordance with the FDA's Guidance Document Policy for Diagnostics Testing in Laboratories Certified to Perform High Complexity Testing under CLIA prior to Emergency use Authorization for Coronavirus Disease 2019 during the Public Health Emergency issued on August 03, 2019. [place] [address] [place] [address] Benja Woods III, M.D. [id number] Performed By: #### 2 [id number] ####[facility],[address] [place] [address] Coronavirus 2019on 0 COVID 19 Source WEB PRODUCTION ASSISTANT Normal [facility] Comment on above: Result Comment: Naso pharyngeal Swab Called to and read back by: Jessie Lovering [facility] Corrected on 04/09 AT 0250: Previously reported as U 04/09/2020 0239 by Juan Antonio Bowen. Corrected on 04/09 AT 0250: Previously reported as U COVID 19 Result WEB PRODUCTION ASSISTANT Abnormal Negative for COVID19 (SARS CoV2) by PCR. [facility] Comment on above: Result Comment: Posi tive for This test was developed and its performance characteristics determined by [facility]'s [facility] [place]. This test has been authorized by FDA [...] developed and its performance characteristics determined by [facility] [place]. This test has been authorized by FDA [...] developed and its performance characteristics determined by [facility] [place]. This test has been authorized by FDA [...] developed and its performance characteristics determined by [facility] [place]. This test has been authorized by FDA [...] 10-14-2024 10:50-0400 Body height 164.6 cm Joleen Mac CIVIL ENGINEER HELPER.SOFTWARE TEST MANAGER Work Phone: [facility] 10-14-2024 10:50-0400 Body mass index (BMI) [Ratio] 30.47 kg/m2 Joleen Raleigh CIVIL ENGINEER HELPER.SOFTWARE TEST MANAGER Work Phone: [facility] 10-14-2024 10:50-0400 Body weight 82.56 kg Joleen Mac CIVIL ENGINEER HELPER.SOFTWARE TEST MANAGER Work Phone: [facility] 10-14-2024 10:50-0400 Diastolic blood pressure 74 mm[Hg] Joleen Mac CIVIL ENGINEER HELPER.SOFTWARE TEST MANAGER Work Phone: [facility] 10-14-2024 10:50-0400 Systolic blood pressure 122 mm[Hg] Joleen Mac CIVIL ENGINEER HELPER.SOFTWARE TEST MANAGER Work Phone: [facility] 10-13-2023 08:50-0400 Body height 167 cm Joleen Raleigh CIVIL ENGINEER HELPER.SOFTWARE TEST MANAGER Work Phone: [facility] 10-13-2023 08:50-0400 Body mass index (BMI) [Ratio] 28.95 kg/m2 Joleen Mac CIVIL ENGINEER HELPER.SOFTWARE TEST MANAGER Work Phone: [facility] 10-13-2023 08:50-0400 Body weight 80.74 kg Joleen Mac CIVIL ENGINEER HELPER.SOFTWARE TEST MANAGER Work Phone: [facility] 10-13-2023 08:50-0400 Diastolic blood pressure 74 mm[Hg] Joleen Raleigh CIVIL ENGINEER HELPER.SOFTWARE TEST MANAGER Work Phone: [facility] 10-13-2023 08:50-0400 Systolic blood pressure 122 mm[Hg] Joleen Mac CIVIL ENGINEER HELPER.SOFTWARE TEST MANAGER Work Phone: [facility] 10-07-2022 08:36-0400 Body height 165.3 cm Joleen Mac CIVIL ENGINEER HELPER.SOFTWARE TEST MANAGER Work Phone: [facility] 10-07-2022 08:36-0400 Body weight 76.3 kg Joleen Raleigh CIVIL ENGINEER HELPER.SOFTWARE TEST MANAGER Work Phone: [facility] 10-07-2022 08:36-0400 Diastolic blood pressure 70 mm[Hg] Joleen Raleigh CIVIL ENGINEER HELPER.SOFTWARE TEST MANAGER Work Phone: [facility] 10-07-2022 08:36-0400 Systolic blood pressure 122 mm[Hg] Joleen Raleigh CIVIL ENGINEER HELPER.SOFTWARE TEST MANAGER Work Phone: [facility] 02-22-2022 15:19-0400 Body temperature 97.9 [degF] Dr. Kunal Cadena Work Phone: [facility] Work Phone: 02-22-2022 15:19-0400 Diastolic blood pressure 68 mm[Hg] Dr. Kunal Cadena Work Phone: [facility] Work Phone: 02-22-2022 15:19-0400 Heart rate 79 /min Dr. Kunal Cadena Work Phone: [facility] Work Phone: 02-22-2022 15:19-0400 Respiratory rate 16 /min Dr. Kunal Cadena Work Phone: [facility] Work Phone: 02-22-2022 15:19-0400 SaO2% (BldA) [Mass fraction] 98 % Dr. Kunal Cadena Work Phone: [facility] Work Phone: 02-22-2022 15:19-0400 Systolic blood pressure 135 mm[Hg] Dr. Kunal Cadena Work Phone: [facility] Work Phone: 02-22-2022 10:18-0400 Body height 165.[address] Kunal Cadena Work Phone: [facility] Work Phone: 02-22-2022 10:18-0400 Body mass index (BMI) [Ratio] 27.6 kg/m2 Dr. Kunal Cadena Work Phone: [facility] Work Phone: 02-22-2022 10:18-0400 Body weight 75.[address] Kunal Cadena Work Phone: [facility] Work Phone: 01-17-2022 08:07-0400 Body temperature 98.4 [degF] Dr. Kunal Cadena Work Phone: [facility] Work Phone: 01-17-2022 08:07-0400 Diastolic blood pressure 72 mm[Hg] Dr. Kunal Cadena Work Phone: [facility] Work Phone: 01-17-2022 08:07-0400 Heart rate 74 /min Dr. Kunal Cadena Work Phone: [facility] Work Phone: 01-17-2022 08:07-0400 Respiratory rate 16 /min Dr. Kunal Cadena Work Phone: [facility] Work Phone: 01-17-2022 08:07-0400 SaO2% (BldA) [Mass fraction] 95 % Dr. Kunal Cadena Work Phone: [facility] Work Phone: 01-17-2022 08:07-0400 Systolic blood pressure 118 mm[Hg] Dr. Kunal Cadena Work Phone: [facility] Work Phone: 01-17-2022 06:40-0400 Body height 165.[address] Kunal Cadena Work Phone: [facility] Work Phone: 01-17-2022 06:40-0400 Body mass index (BMI) [Ratio] 27.5 kg/m2 Dr. Kunal Cadena Work Phone: [facility] Work Phone: 01-17-2022 06:40-0400 Body weight [address] Kunal Cadena Work Phone: [facility] Work Phone: 12-10-2021 10:12-0400 Body height 165.[address] Kunal Cadena Work Phone: [facility] Work Phone: 12-10-2021 10:12-0400 Body mass index (BMI) [Ratio] 29.3 kg/m2 Dr. Kunal Cadena Work Phone: [facility] Work Phone: 12-10-2021 10:12-0400 Body temperature 98.2 [degF] Dr. Kunal Cadena Work Phone: [facility] Work Phone: 12-10-2021 10:12-0400 Body weight [address] Kunal Cadena Work Phone: [facility] Work Phone: 12-10-2021 10:12-0400 Diastolic blood pressure 79 mm[Hg] Dr. Kunal Cadena Work Phone: [facility] Work Phone: 12-10-2021 10:12-0400 Heart rate 72 /min Dr. Kunal Cadena Work Phone: [facility] Work Phone: 12-10-2021 10:12-0400 Respiratory rate 16 /min Dr. Kunal Cadena Work Phone: [facility] Work Phone: 12-10-2021 10:12-0400 SaO2% (BldA) [Mass fraction] 98 % Dr. Kunal Cadena Work Phone: [facility] Work Phone: 12-10-2021 10:12-0400 Systolic blood pressure 147 mm[Hg] Dr. Kunal Cadena Work Phone: [facility] Work Phone: 04-15-2020 22:22-0500 SaO2% (BldA) [Mass fraction] 95 % DR JAXSON ESCUDERO [facility] Comment on above: Performed By: #### [id number] #### [facility],[address] [place] [address] Encounters Encounter Date Encounter Type Care Provider Facility Start: 12-11-2024 End: 12-11-2024 Patient encounter procedure Mariposa MARQUES -[facility] Work Phone: Start: 12-11-2024 End: 12-11-2024 ambulatory Guido Aguayo MD Work Phone: -[facility] Start: 11-28-2024 End: 11-28-2024 ambulatory Guido Aguayo MD Work Phone: -Ultrasound [facility] Start: 11-28-2024 End: 11-28-[address] Guido Aguayo MD -Ultrasound [facility] Work Phone: Start: 11-28-2024 End: 11-28-2024 ambulatory Guido Aguayo Facility:[facility] Start: 10-30-2024 End: 10-30-2024 ambulatory Guido Aguayo MD Work Phone: [facility] Work Phone: Start: 10-30-2024 End: 10-30-2024 Patient encounter procedure Junaid Lott WEB PRODUCTION ASSISTANT-C [facility] Work Phone: Start: 10-30-2024 End: 10-30-2024 ambulatory Junaid Lott WEB PRODUCTION ASSISTANT Facility:[facility] Start: 10-14-2024 End: 12-14-2024 Follow-up encounter Joleen Reich APRN.CNP Work Phone: OB/Gynecology Start: 10-14-2024 End: 10-14-2024 Patient encounter procedure Joleen Reich APRN.SOFTWARE TEST MANAGER Work Phone: OB/Gynecology Comment on above: Encounter for gyneco logical examination (general) (routine) without abnormal findings (Primary Dx); Encounter for screening mammogram for breast cancer Start: 10-14-2024 End: 10-14-2024 Patient encounter status Joleen Winslowcalf JAKE.SOFTWARE TEST MANAGER Work Phone: [facility] Start: 10-14-2024 Encounter for gynecological examination (general) (routine) without abnormal findings JOLEEN REICH [facility] Start: 10-14-2024 End: 10-14-2024 ambulatory JOLEEN LUNDBERGF Facility:[facility] Start: 10-14-2024 End: 10-14-2024 Patient encounter status Screen Wstr [facility] Start: 10-14-2024 End: 10-14-2024 Subsequent hospital visit by physician Screen Mammo [facility] Mammogram Comment on above: Encounter for gyneco logical examination (general) (routine) without abnormal findings [Z01.419] Start: 10-13-2023 Documentation procedure Mammog micheal Coordinator [facility] Start: 10-13-2023 Letter encounter Mammography Coordinator [facility] Start: 10-13-2023 End: 10-13-2023 Patient encounter procedure Joleen Reich APRN.SOFTWARE TEST MANAGER Work Phone: OB/Gynecology Comment on above: Encounter for gyneco logical examination (general) (routine) without abnormal findings (Primary Dx); Screening for malignant neoplasm of cervix; Encounter for screening for human papillomavirus (HPV); Encounter for screening mammogram for malignant neoplasm of breast Start: 10-13-2023 End: 10-13-2023 Patient encounter status Joleen Reich APRN.SOFTWARE TEST MANAGER Work Phone: [facility] Start: 10-13-2023 End: 10-13-2023 Subsequent hospital visit by physician Screen Mammo [facility] Mammogram Comment on above: Encounter for screen ing mammogram for breast cancer [Z12.31] Start: 10-02-2023 End: 10-02-2023 ambulatory [facility] Work Phone: Start: 10-02-2023 End: 10-02-2023 Patient encounter procedure [facility] Work Phone: Start: 10-07-2022 Documentation procedure Mammog micheal Coordinator [facility] Start: 10-07-2022 Letter encounter Mammography Coordinator [facility] Start: 10-07-2022 End: 10-07-2022 Patient encounter procedure Joleen Winslowcalf JAKE.SOFTWARE TEST MANAGER Work Phone: OB/Gynecology Comment on above: Encounter for gyneco logical examination (general) (routine) without abnormal findings (Primary Dx); Encounter for screening mammogram for breast cancer; Lichen sclerosus et atrophicus Start: 10-07-2022 End: 10-07-2022 Patient encounter status Joleen Winslowcalf JAKE.SOFTWARE TEST MANAGER Work Phone: OB/Gynecology Start: 06-21-2022 End: 06-21-2022 ambulatory DO Licha Mccray Work Phone: [facility] Work Phone: Start: 06-21-2022 End: 06-21-2022 Patient encounter procedure DO Licha Mccray Work Phone: [facility] Start: 03-07-2022 End: 03-07-2022 Patient encounter procedure DO Licha Mccray Work Phone: [facility] Start: 02-22-2022 Non-patient / Non-visit Dr. Margy Cadena Work Phone: [facility] Start: 02-22-2022 End: 02-22-2022 Admission to same day surgery center [facility] Start: 02-22-2022 End: 02-22-[address] Kunal Cadena Work Phone: [facility] Work Phone: Start: 01-17-2022 Non-patient / Non-visit Dr. Margy Cadena Work Phone: [facility] Start: 01-17-2022 End: 01-17-2022 Admission to same day surgery center Dr. Kunal Cadena Work Phone: [facility]-Endoscopy Start: 01-10-2022 End: 01-10-[address] Kunal Cadena Work Phone: [facility] Start: 12-31-2021 End: 12-31-[address] Kunal Cadena Work Phone: [facility]-Nuclear Medicine, [facility] Start: 12-24-2021 End: 12-24-[address] Kunal Cadena Work Phone: [facility] Start: 12-10-2021 End: 12-10-[address] Kunal Cadena Work Phone: [facility] Start: 12-03-2021 End: 12-03-2021 Patient encounter procedure [facility]-Ultrasound, [facility] Start: 02-10-2021 End: 02-10-[address] JAXSON ESCUDERO [facility] Start: 09-03-2020 End: 09-03-[address] JAXSON ESCUDERO [facility] Start: 05-30-2020 End: 05-30-2020 Emergency department patient visit DR JAXSON ESCUDERO [facility] Start: 04-15-2020 End: 04-16-2020 Evaluation and management of inpatient KYM LOUIS [facility] Start: 04-06-2020 End: 04-07-[address] JAXSON ESCUDERO [facility] Procedures Date Procedure Procedure Detail Performing Clinician Start: 11-28-2024 Ultrasonography of abdomen Guido Newton Work Phone: Start: 10-14-2024 Screening digital breast tomosynthesis amador Reich APRN.CNP Work Phone: Start: 05-05-2023 Mammography Mammography Coordinator Start: 02-22-2022 Total cholecystectomy and exploration of common bile duct Dr. Kunal Cadena Work Phone: Start: 02-22-[address] Kunal Cadena Work Phone: Start: 01-17-[address] Kunal nice Work Phone: Start: 12-31-2021 Radionuclide imaging of liver and/or biliary tract using radioactive isotope Dr. Kunal Cadena Work Phone: Start: 12-03-2021 Ultrasonography of abdomen Start: 07-26-2021 Mammography Joleen Mac CIVIL ENGINEER HELPER.SOFTWARE TEST MANAGER Work Phone: Start: 06-25-2016 Lipid 1996 panel - Serum or Plasma Joleen Mac CIVIL ENGINEER HELPER.SOFTWARE TEST MANAGER Work Phone: Start: 07-27-2015 Colonoscopy Joleen Raleigh CIVIL ENGINEER HELPER.SOFTWARE TEST MANAGER Work Phone: History of cholecystectomy S/P l aparoscopic cholecystectomy DO Lichayoon Johnsonnger Work Phone: Plan of Treatment Date Care Activity Detail Author Start: 01-25-2036 RSV Vaccine (1 - 1-d ose 75+ series) RSV Vaccine (1 - 1-dose 75+ series) [facility] Start: 10-12-2028 Screening for malign ant neoplasm of cervix Cervical Cancer Screening [facility] Start: 10-20-2025 End: 10-20-2025 Patient encounter procedure Mammogram Comment on above: Encounter for gyneco logical examination (general) (routine) without abnormal findings [Z01.419]; Encounter for screening mammogram for breast cancer [Z12.31] Annual Start: 10-14-2025 Screening for malign ant neoplasm of breast Mammogram Screening [facility] Start: 07-27-2025 Colonoscopy COLONOSCOPY [facility] Start: 07-27-2025 COLORECTAL CANCER SCREENING COLORECTAL CANCER SCREENING [facility] Start: 07-27-2025 Screening for malign ant neoplasm of colon [facility] Start: 02-03-2025 Influenza vaccination Influenza Vacc ine (#1) [facility] Start: 10-14-2024 End: 10-14-2024 Patient encounter procedure 10/14/2024 11:30 AM EDT Office Visit OB/Gynecology [address] [place] [id number] Joleen Reich APRN.SOFTWARE TEST MANAGER [address] [place] [id number] Annual OB/Gynecology Comment on above: Annual Start: 10-14-2024 End: 10-14-2024 Patient encounter procedure 10/14/2024 10:10 AM EDT Appointment Mammogram [address] [place] [id number] Encounter for gynecological examination (general) (routine) without abnormal findings [Z01.419] Mammogram Comment on above: Encounter for gyneco logical examination (general) (routine) without abnormal findings [Z01.419] Start: 10-12-2024 Screening for malign ant neoplasm of breast Mammogram Screening [facility] Start: 03-15-2024 HPV TESTING HPV TESTING [facility] Start: 03-15-2024 PAP TESTING PAP TESTING [facility] Start: 03-15-2024 Screening for malign ant neoplasm of cervix [facility] Start: 02-04-2024 Covid-19 Vaccine () Covid-19 Vaccine () [facility] Start: 10-08-2023 Mammography MAMMOGRAM [facility] Start: 10-08-2023 Screening for malign ant neoplasm of breast Mammogram Screening [facility] Start: 06-05-2023 Behavioral Health Screening Behavioral Health Screening [facility] Start: 02-03-2023 Covid-19 Vaccine ( season) Covid-19 Vaccine () [facility] Start: 07-26-2022 Mammography MAMMOGRAM [facility] Start: 06-05-2022 DEPRESSION ASSESSMENT DEPRESSION ASS ESSMENT [facility] Start: 02-22-2022 [facility] Start: 02-22-2022 Cholangiogram Cholangiogram/ O R,Initial [facility] Work Phone: Start: 02-22-2022 XR Biliary ducts and Gallbladder Views W contrast IV [facility] Work Phone: Start: 01-17-2022 Egd transoral biopsy single/multiple EGD BIOPSY SINGLE/MULTIPLE [facility] Work Phone: Start: 01-17-2022 Patient discharge [facility] Work Phone: Start: 08-13-2021 COVID-19 VACCINE (3 - Booster) COVID-19 VACCINE (3 - Booster) [facility] Start: 06-25-2021 Lipid panel Lipid Screening [facility] Start: 06-25-2021 LIPID SCREEN LIPID SCREEN [facility] Start: 2021 RSV Vaccine (1 - 1-d ose 60+ series) RSV Vaccine (1 - 1-dose 60+ series) [facility] Start: 06-25-2019 DIABETES SCREEN DIABETES SCREEN [facility] Start: 06-25-2019 Diabetes Screening Diabetes Screenin g [facility] Start: 01-26-2019 Urine microalbumin profile DTaP,Tdap,Td Vaccine (1 - Tdap) [facility] Start: 09-22-2013 FECAL OCCULT BLOOD FECAL OCCULT BLOO D [facility] Start: 09-22-2013 Screening for malign ant neoplasm of colon Fecal Occult Blood [facility] Start: 2011 Pneumococcal Vaccine : 50+ (1 of 1 - PCV) Pneumococcal Vaccine: 50+ (1 of 1 - PCV) [facility] Start: 2011 SHINGRIX VACCINE (1 of 2) SHINGRIX VACCINE (1 of 2) [facility] Start: 2006 COLOGUARD (FIT-DNA) COLOGUARD (FIT-D NA) [facility] Start: [address] COLONOGRAPHY [facility] Start: 2006 Screening for malign ant neoplasm of colon [facility] Start: 2006 SIGMOIDOSCOPY SIGMOIDOSCOPY [facility] Start: 01-25-1980 Urine microalbumin profile DTAP,TDAP,TD (1 - Tdap) [facility] Start: 1979 Anxiety Screening Anxiety Screening [facility] Start: 1979 Depression Screening Depression Scre ening [facility] Start: 1979 HEPATITIS C SCREENING HEPATITIS C [facility] Start: 1979 Hepatitis C screening Hepatitis C [facility] Start: 1979 HIV SCREENING HIV SCREENING [facility] Start: 1979 HIV screening HIV Screening [facility] CBC W Auto Different ial panel - Blood [facility] Clostridioides diffi cile DNA [Presence] in Unspecified specimen by SHAN with probe detection [facility] Comprehensive metabo lic 2000 panel - Serum or Plasma [facility] End: 11-11-2024 DBT Breast - bilateral screening [facility] Work Phone: Comment on above: 1 Occurrences starti ng 10/13/2023 until 11/11/2024 DBT Breast - bilater al screening ASAEL SCREENING W LAZARA Radiology Routine Encounter for screening mammogram for breast cancer 10/13/2023 8:50 AM EDT [facility] Work Phone: End: 11-13-2025 DBT Breast - bilateral screening ASAEL SCREENING W LAZARA Radiology Routine Encounter for gynecological examination (general) (routine) without abnormal findings Encounter for screening mammogram for breast cancer 1 Occurrences starting 10/14/2024 until 11/13/2025 [facility] Work Phone: Comment on above: 1 Occurrences starti ng 10/14/2024 until 11/13/2025 Helicobacter pylori Ag [Presence] in Stool by Immunoassay [facility] End: 11-06-2023 ASAEL SCREENING W LAZARA ASAEL SCREENING W LAZARA Radiology Routine Encounter for screening mammogram for breast cancer 1 Occurrences starting 10/07/2022 until 11/06/2023 [facility] Work Phone: Comment on above: 1 Occurrences starti ng 10/07/2022 until 11/06/2023 Nucleic acid assay [facility] PAP TEST PAP TEST Lab [facility] Screening for malignant neoplasm of cervix Encounter for screening for human papillomavirus (HPV) 10/13/2023 9:19 AM EDT [facility] Work Phone: Protein measurement [facility] Immunizations Immunization Date Immunization Notes Care Provider Carlitos larry 03-07-2024 influenza, seasonal, injectable, preservative free Joleen Mac CIVIL ENGINEER HELPER.SOFTWARE TEST MANAGER Work Phone: [facility] 03-07-2024 influenza virus vaccine, unspecified formulation Joleen Mac CIVIL ENGINEER HELPER.SOFTWARE TEST MANAGER Work Phone: [facility] 03-23-2023 influenza, injectabl e, quadrivalent, preservative free Joleen Raleigh CIVIL ENGINEER HELPER.SOFTWARE TEST MANAGER Work Phone: [facility] 03-22-2022 Influenza, injectabl e, Madin [place] Canine Kidney, preservative free, quadrivalent Joleen Raleigh CIVIL ENGINEER HELPER.SOFTWARE TEST MANAGER Work Phone: [facility] 09-03-2021 zoster vaccine recombinant Joleen Mac CIVIL ENGINEER HELPER.SOFTWARE TEST MANAGER Work Phone: [facility] 06-18-2021 COVID-19 original vaccine, full dose, monovalent (MODERNA) Joleen Raleigh CIVIL ENGINEER HELPER.SOFTWARE TEST MANAGER Work Phone: [facility] Work Phone: 06-02-2021 zoster vaccine recombinant Joleen Mac CIVIL ENGINEER HELPER.SOFTWARE TEST MANAGER Work Phone: [facility] 03-04-2021 influenza, injectabl e, quadrivalent, contains preservative Joleen Mac CIVIL ENGINEER HELPER.SOFTWARE TEST MANAGER Work Phone: [facility] Work Phone: 09-03-2020 COVID-19 vaccine (AMANDO) Joleen Mac CIVIL ENGINEER HELPER.SOFTWARE TEST MANAGER Work Phone: [facility] 09-03-2020 COVID-19 vaccine, unspecified formulation Joleen Mac CIVIL ENGINEER HELPER.SOFTWARE TEST MANAGER Work Phone: [facility] Work Phone: 02-21-2020 Influenza, injectabl e, Madin Ashley Canine Kidney, preservative free, quadrivalent Joleen Mac CIVIL ENGINEER HELPER.SOFTWARE TEST MANAGER Work Phone: [facility] 01-25-2019 tetanus and diphther ia toxoids, adsorbed, preservative free, for adult use (5 Lf of tetanus toxoid and 2 Lf of diphtheria toxoid) Joleen Mac CIVIL ENGINEER HELPER.SOFTWARE TEST MANAGER Work Phone: [facility] 10-24-2013 measles, mumps and rubella virus vaccine Joleen Raleigh CIVIL ENGINEER HELPER.SOFTWARE TEST MANAGER Work Phone: [facility] 05-09-2013 hepatitis A vaccine, adult dosage Joleen Raleigh CIVIL ENGINEER HELPER.SOFTWARE TEST MANAGER Work Phone: [facility] 05-09-2013 hepatitis B vaccine, adult dosage Joleen Raleigh CIVIL ENGINEER HELPER.SOFTWARE TEST MANAGER Work Phone: [facility] 11-27-2012 hepatitis B vaccine, adult dosage Joleen Mac CIVIL ENGINEER HELPER.SOFTWARE TEST MANAGER Work Phone: [facility] 10-16-2012 hepatitis A vaccine, adult dosage Joleen Mac CIVIL ENGINEER HELPER.SOFTWARE TEST MANAGER Work Phone: [facility] 10-16-2012 hepatitis B vaccine, adult dosage Joleen Raleigh CIVIL ENGINEER HELPER.SOFTWARE TEST MANAGER Work Phone: [facility] Payers Date Payer Category Payer Unknown [id number] 2024 Self-pay [id number] 2023 [facility] [place] [facility] [id number] 2023 Unknown [id number] 2019 Unknown [id number] 1960 Unknown [id number] 1960 Unknown [id number] 1960 Unknown [id number] 1960 Unknown [id number] 1960 Unknown [id number] Unknown [id number] Unknown [id number] Unknown [id number] Unknown [id number] 462 Unknown [id number] Unknown [id number] 462 Social History Date Type Detail Facility Start: 04-18-2019 End: 02-09-2022 Tobacco smoking status AZIS Unknown if ever smoked [facility] Start: 04-18-2019 Non-smoker [facility] Start: 1960 Sex Assigned At Female [facility] Start: 02-09-2022 End: 10-07-2022 Tobacco smoking status AZIS Never smoked tobacco [facility] Work Phone: Start: 10-07-2022 Tobacco use and exposure Smokeless tobacco non-user [facility] Work Phone: Start: 10-07-2022 End: 10-14-2024 Alcohol intake Current non-drinker of alcohol (finding) [facility] Start: 1960 Sex Assigned At Not on file [facility] Start: 10-07-2022 End: 10-13-2023 History of Social function [facility] Start: 10-07-2022 End: 10-13-2023 Tobacco use panel [facility] National Score (1-100), lower number is lower risk 48 [facility] Medical Equipment Procedure Code Equipment Code Equipment Original Text Equipment Identifier Dates Total cholecystectomy with exploration of common bile duct Ligation clip, synthetic polymer, non-bioabsorbable [id number] FDA Start: 02-22-2022 Goals Date Patient Goal Desired Activity /State Functional Status Date Assessment Result Facility 01-03-2014 Are you deaf, or do you have serious difficulty hearing No 01/03/2014 2:01 PM Clarisse Ruvalcaba MA No [facility] 01-03-2014 Are you blind, or do you have serious difficulty seeing, even when wearing glasses No 01/03/2014 2:01 PM Clarisse Ruvalcaba MA No [facility] 01-03-2014 Do you have serious difficulty walking or climbing stairs No 01/03/2014 2:01 PM Clarisse Ruvalcaba MA No [facility] 01-03-2014 Do you have difficul ty dressing or bathing No 01/03/2014 2:01 PM Clarisse Ruvalcaba MA No [facility] 01-03-2014 Because of a physica l, mental, or emotional condition, do you have difficulty doing errands alone such as visiting a physician's office or shopping No 01/03/2014 2:01 PM Clarisse Ruvalcaba MA No [facility] Mental Status Date Assessment Result Facility 02-22-2022 Cognitive function Voice/Name [facility] Work Phone: 01-17-2022 Cognitive function Voice/Name [facility] Work Phone: 01-03-2014 Because of a physica l, mental, or emotional condition, do you have serious difficulty concentrating, remembering, or making decisions No 01/03/2014 2:01 PM Clarisse Ruvalcaba MA No [facility] Clinical Notes 04-20-2020 to 11-28-2024 Joleen Reich APRN.SOFTWARE TEST MANAGER - 10/14/2024 10:27 AM Berenice Preciado, Mammo Tech - 10/14/2024 10:10 AM Eben - Amiclar, Mammography - 10/13/2023 1:45 PM EDT Note Date & Type Note Facility 11-28-2024 Radiology Diagnostic study note [facility] Imaging Services [address] [place] [address] Abdomen Limited MR#: [id number] Acct: [id number] Name: TAMIKO SHEARER Rep #: [id number] : 1960 F 64 From: Maurice Mackenzie MD PCP: Dr. Guido Aguayo MD Status: REG CL I Study:Abdomen Limited Date of Exam: 11/04 11/27 Exam# [id number] Ordering Dr: Ghazal Aguayo MD PROCEDURE: ABDOMEN LIMITED 11/28/2024 REASON FOR EXAM: R FLANK PAIN COMPARISON: December 03, 2021. FINDINGS: Liver: Grossly normal size and echotexture. Liver measures 17.1 cm. Gallbladder: Surgically absent. Common bile duct: Normal measuring 5.1 mm . Pancreas: Normal Other: Visualized portions of the right kidney are unremarkable. No right upperquadrant ascites. US/Abdomen Limited IMPRESSION: Borderline hepatomegaly. Reading Location: [facility] CC: Dr. Guido Aguayo MD ~ Turning Lathe Tender: Signed [facility] 10-14-2024 Note HNO ID: [id number] Author: JOLEEN REICH APRN.SOFTWARE TEST MANAGER Service: ? Author Type: Nurse Practitioner Type: Progress Notes Filed: 10/14/2024 11:05 Note Text: Patient declined statistical methods professorRonald Morrison is a 64 year old who [...] Breast Cancer Mother 60 Heart Mother High Cholesterol/CT Hypertension Mother Prostate Cancer Father Heart Father [...] discussed with the Patient or Patient's Authorized Drop Hammer Setter Up. As applicable, any other physician, advance practice provider, medical student, or other health professional student that will be observing or involved in the sensitive examination for educational or training purposes was discussed with the Patient or Authorized Drop Hammer Setter Up. 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 Tamiko is a 64 year old who presents [...] Breast Cancer Mother 60 Heart Mother High Cholesterol/CT Hypertension Mother Prostate Cancer Father Heart Father [...] discussed with the Patient or Patient's Authorized Drop Hammer Setter Up. As applicable, any other physician, advance practice provider, medical student, or other health professional student that will be observing or involved in the sensitive examination for educational or training purposes was discussed with the Patient or Authorized Drop Hammer Setter Up. The Patient or Authorized Drop Hammer Setter Up has agreed to proceed with the sensitive [...] external genitalia normal, normal Bartholin's glands, urethra, [place]'s glands, no vulvar lesions, no cervical lesions, [...] Joleen Reich APRN.MARCE documented in this encounter [facility] 10-14-2024 History of Presen t illness [...] PATIENT PRESENTS WITH AN IMPLANTABLE OR ATTACHED FRETTED INSTRUMENT REPAIRER: No RADIOLOGY DEPARTMENT: Mammography PERIPHERAL IV DATA: Not applicable SIGNED BY: Chapito Cordoba October 14, 2024 10:32 AM documented in this encounter [facility] 10-14-2024 Note HNO ID: [id number] Author: BERENICE KENDALL Mammo Tech Service: ? Author Type: Belt Repairer Type: Progress Notes Filed: 10/14/2024 10:32 Note [...] PATIENT PRESENTS WITH AN IMPLANTABLE OR ATTACHED FRETTED INSTRUMENT REPAIRER: No RADIOLOGY DEPARTMENT: Mammography PERIPHERAL IV DATA: Not applicable SIGNED BY: Chapito Cordoba October 14, 2024 10:32 AM [facility] 10-13-2023 Note Formatting of this n ote might be different from the original. October 16, 2023 PID: [id number] Tamiko Shearer [address] [address] Dear Ronald BelcherJeanne, We are pleased to inform you that [...] report will be kept on file at [facility] as part of your permanent medical record and are available for your continuing care. Thank you for allowing us to help in meeting your health care needs. Sincerely, Dr. Morales Interpreting Radiologist [facility] (Normal over 40) [facility] 10-13-2023 Miscellaneous Notes October 16, 2023 PID: [id number] Tamiko Shearer [address] [place] [address] Dear Ronald Shearer, We are pleased to inform you [...] report will be kept on file at [facility] as part of your permanent medical record and are available for your continuing care. Thank you for allowing us to help in meeting your health care needs. Sincerely, Dr. Morales Interpreting Radiologist [facility] (Normal over 40) documented in this encounter [facility] 10-13-2023 History of Presen t illness Narrative [...] Ectopic0 Multiple0 Live Births0 Comment: x 3 Integrated Circuit Fabricator History LMP: 02/28/2019, Postmenopausal Age at Menarche: Age at First : Age at Menopause: Integrated Circuit Fabricator History Comments: Sexual Activity: Yes; Male; Vasectomy Contraception: Vasectomy PAST MEDICAL HISTORY Diagnosis Date Lichen sclerosus NONE PAST SURGICAL HISTORY Procedure Laterality Date COLONOSCOPY FLX DX W/COLLJ SPEC WHEN PFRMD 07/27/15 Colonoscopy HYSTEROSCOPY 04/2019 D&C for PMB. 2 polyps noted. Benign pathology FAMILY HISTORY Problem Relation Age of Onset Breast Cancer Mother 60 Heart Mother High Cholesterol/CT Hypertension Mother Prostate Cancer Father Heart Father [...] external genitalia normal, normal Bartholin's glands, urethra, [place]'s glands, no vulvar lesions, no cervical lesions, [...] Joleen Reich APRN.MARCE documented in this encounter [facility] 10-13-2023 History of Presen t illness Narrative [...] PATIENT PRESENTS WITH AN IMPLANTABLE OR ATTACHED FRETTED INSTRUMENT REPAIRER: No RADIOLOGY DEPARTMENT: Mammography PERIPHERAL IV DATA: Not applicable SIGNED BY: Chapito Cordoba October 13, 2023 8:50 AM documented in this encounter [facility] 10-07-2022 Miscellaneous Notes October 10, 2022 PID: [id number] Tamiko Shearer [address] [address] Dear Ms. Shearer, We are pleased to [...] report will be kept on file at [facility] as part of your permanent medical record and are available for your continuing care. Thank you for allowing us to help in meeting your health care needs. Sincerely, Dr. Chaudhari Interpreting Radiologist [facility] (Normal over 40) documented in this encounter [facility] 10-07-2022 History of Presen t illness Narrative [...] Ectopic0 Multiple0 Live Births0 Comment: x 3 Integrated Circuit Fabricator History LMP: 02/28/2019, Postmenopausal Age at Menarche: Age at First : Age at Menopause: Integrated Circuit Fabricator History Comments: Sexual Activity: Yes; Male; Vasectomy Contraception: Vasectomy PAST MEDICAL HISTORY Diagnosis Date Lichen sclerosus NONE PAST SURGICAL HISTORY Procedure Laterality Date COLONOSCOPY FLX DX W/COLLJ SPEC WHEN PFRMD 07/27/15 Colonoscopy HYSTEROSCOPY 04/2019 D&C for PMB. 2 polyps noted. Benign pathology FAMILY HISTORY Problem Relation Age of Onset Breast Cancer Mother 60 Heart Mother High Cholesterol/CT Hypertension Mother Prostate Cancer Father Heart Father [...] external genitalia normal, normal Bartholin's glands, urethra, [place]'s glands, no vulvar lesions, no cervical lesions, [...] Joleen Reich APRN.MARCE documented in this encounter [facility] 04-20-2020 Note [facility] HISTORY & PHYSICAL NAME ACCOUNT SEX AGE ADMIT DISCHARGE PT MED. RECORD# NUMBER DATE DATE TYPE JEANNE, [id number] F 60 04/15/20 1 TAMIKO [id number] ROOM: [facility] DATE OF : 62 DICTATING PHYSICIAN: Kym [...] healthy. 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 She is [...] was encouraged to (more content not included)... [facility] Evaluation note No assessment inform ation available [facility] Work Phone: Evaluation note Diagnosis Onset Date Gallbladder sludge acute GERD (gastroesophageal reflux disease) acute N&V (nausea and vomiting) ac hamilton RUQ fullness chronic Gallbladder sludge acute GERD (gastroesophageal reflux disease) acute N&V (nausea and vomiting) ac hamilton RUQ fullness chronic [facility] Work Phone: Evaluation note* Diagnosis Onset Date Resolution Status Gallbladder sludge acute GERD (gastroesophageal reflux disease) acute N&V (nausea and vomiting) ac hamilton RUQ fullness chronic Gallbladder sludge acute GERD (gastroesophageal reflux disease) acute N&V (nausea and vomiting) ac hamilton RUQ fullness chronic Gallbladder sludge acute RUQ fullness chronic [facility] Work Phone: Evaluation note* Diagnosis Onset Date Resolution Status Gallbladder sludge acute GERD (gastroesophageal reflux disease) acute N&V (nausea and vomiting) ac hamilton RUQ fullness chronic Gallbladder sludge acute GERD (gastroesophageal reflux disease) acute N&V (nausea and vomiting) ac hamilton RUQ fullness chronic Gallbladder sludge acute RUQ fullness chronic Gallbladder sludge acute RUQ fullness chronic [facility] Work Phone: Evaluation note* Diagnosis Onset Date Resolution Status S/P laparoscopic cholecystectomy acute [facility] Work Phone: Evaluation note* Diagnosis Encounter for gynecological examination (general) (routine) without abnormal findings- Primary Encounter for screening mammogram for breast cancer Lichen sclerosus et atrophicus Circumscribed scleroderma [facility] Diagnosis Encounter for gynecological examination (general) (routine) without abnormal findings- Primary Screening for malignant neoplasm of cervix Screening for malignant neoplasm of the cervix Encounter for screening for human papillomavirus (HPV) Special screening examination for human papillomavirus (HPV) Encounter for screening mammogram for malignant neoplasm of breast Other screening mammogram [facility]* Diagnosis Encounter for screening mammogram for breast cancer documented in this encounter [facility] note* Diagnosis Encounter for gynecological examination (general) (routine) without abnormal findings- Primary Encounter for screening mammogram for breast cancer [facility] Diagnosis Encounter for gynecological examination (general) (routine) without abnormal findings documented in this encounter [facility] note* Diagnosis Onset Date Resolution Status Admit Date GERD (gastroesophageal reflu x disease) acute December 11, 2024 1 0:42am RUQ fullness chronic December 11 10:42am N&V (nausea and vomiting) resolved December 11, 2024 10:42am [facility] Work [facility]: [facility] Diagnostic Procedure Only (Routine) - Pending Review Specialty Diagnoses / Procedures Referred By Lisa chan Referred To Contact [facility] Diagnoses Encounter for screening mammogram for breast cancer Procedures ASAEL SCREENING W LAZARA SCREENING DIGITAL BREAST TOMOSYNTHESIS BI SCREENING MAMMOGRAPHY BI 2-VIEW BREAST INC CAD Joleen Reich APRN.CNP [address] [facility] [address] [facility] [address] [place] [id number] Referral ID Status Reason Start Date Expiration Date Visits Requested Visits Authorized [id number] Pending Review Auto-Generat ed Referral 10/07/2022 11/06/2023 1 1 [facility] for referral (narrative)* Diagnostic Procedure Only (Routine) - Pending Review Specialty Diagnoses / Procedures Referred By Lisa chan Referred To Contact [facility] Diagnoses Encounter for screening mammogram for malignant neoplasm of breast Procedures ASAEL SCREENING W LAZARA SCREENING DIGITAL BREAST TOMOSYNTHESIS BI SCREENING MAMMOGRAPHY BI 2-VIEW BREAST INC CAD Joleen Reich APRN.CNP [address] [address] [facility] [address] [place] [address] Referral ID Status Reason Start Date Expiration Date Visits Requested Visits Authorized [id number] Pending Review Auto-Generat ed Referral 10/13/2023 11/11/2024 1 1 * Diagnostic Procedure Only (Routine) - Authorized Specialty Diagnoses / Procedures Referred By Bobac t Referred To Contact [facility] Diagnoses Encounter for gynecological examination (general) (routine) without abnormal findings Procedures ASAEL SCREENING W LAZARA SCREENING DIGITAL BREAST TOMOSYNTHESIS BI SCREENING MAMMOGRAPHY BI 2-VIEW BREAST INC CAD Joleen Reich APRN.SOFTWARE TEST MANAGER [address] [place] [address] [facility] [address] [place] [address] Referral ID Status Reason Start Date Expiration Date Visits Requested Visits Authorized [id number] Authorized Auto-Generat ed Referral 10/13/2023 11/11/2024 1 1 [facility])No reason for referral information availableW[facility] Work Phone: Reason for visit Narrative* Diagnostic Procedure Only (Routine) - Closed Specialty Diagnoses / Procedures Referred By Lisa t Referred To Contact [facility] Diagnoses Encounter for screening mammogram for breast cancer Procedures ASAEL SCREENING W LAZARA SCREENING DIGITAL BREAST TOMOSYNTHESIS BI SCREENING MAMMOGRAPHY BI 2-VIEW BREAST INC CAD Joleen Reich APRN.SOFTWARE TEST MANAGER [address] [place] [address] [facility] [address] [place] [address] Referral ID Status Reason Start Date Expiration Date V isits Requested Visits Authorized [id number] Closed Auto-Generate d Referral 10/07/2022 11/06/2023 1 1 [facility] for visit Narrative* Diagnostic Procedure Only (Routine) - Closed Specialty Diagnoses / Procedures Referred By Lisa t Referred To Contact [facility] Diagnoses Encounter for gynecological examination (general) (routine) without abnormal findings Procedures ASAEL SCREENING W LAZARA SCREENING DIGITAL BREAST TOMOSYNTHESIS BI SCREENING MAMMOGRAPHY BI 2-VIEW BREAST INC CAD Joleen Reich APRN.SOFTWARE TEST MANAGER [address] [place] [address] Phone: tel: fax: [facility] [address] [place] [address] Referral ID Status Reason Start Date Expiration Date V isits Requested Visits Authorized [id number] Closed Auto-Generate d Referral 10/13/2023 11/11/2024 1 1 [facility] Summary Purpose Family History Relationship Condition Age at Onset Recorded Date/T jakub mother Cardiac disease Unknown Hypertension Unknown Malignant neoplasm of breast Unknown father Cardiac disease Unknown Advance Directives Advance Directive Response Recorded Date/ Time Living Will Yes April 18, 019 12:23pm Power of Stone Planer Yes April 18, 2019 12:23pm Advance Directive Response Recorded Date/ Time Name of Medical Power of Stone Planer and so n January 12, 2022 9:32am Living Will Yes January 12 9:32am Power of Stone Planer Yes January 12 9:32am Advance Directive Response Recorded Date/ Time Name of Medical Power of Stone Planer and so n January 12, 2022 9:32am Name of Medical Power of Stone Planer SPOUSE February 09, 2022 1:46pm Living Will Yes February 09, 1:46pm Power of Stone Planer Yes February 09, 2022 1:46pm Advance Directive Response Recorded Date/ Time Living Will Yes February 09, 12:46pm Power of Stone Planer Yes February 09, 2022 12:46pm Advance Directive Response Recorded Date/ Time Living Will Yes February 09, 1:46pm Power of Stone Planer Yes February 09, 2022 1:46pm Chief Complaint [...] EORDER- FASTING October 30, 2024 8:06a m Chief Complaint Admit Date EORDER- FASTING October 30, 2024 8:06a m RT FLANK PAIN November 28, 2024 7:25 am Chief Complaint Admit Date EORDER- FASTING October 30, 2024 8:06a m RT FLANK PAIN November 28, 2024 7:25 am RT FLANK PAIN December 11, 2024 10:42 am Reason for Visit Admit Date GERD (gastroesophageal reflux disease) J roscoe 2024 10:42am RUQ fullness December 11, 2024 10:42 am N&V (nausea and vomiting) December 11, 2024 10:42am Additional Source Comments INFORMATION SOURCE (unrecogn ized section and content) DATE CREATED AUTHOR 04/09/2020 [facility] DATE CREATED AUTHOR AUTHOR'S ORGANIZ ATION 02/20/2021 [facility] DATE CREATED AUTHOR AUTHOR'S ORGANIZ ATION 10/14/2024 [facility] DATE CREATED AUTHOR AUTHOR'S ORGANIZ ATION 12/13/2024 [facility] Goals (unrecognized section and content) Goals may [...] Status Dates Licha Mccray DO Primary Care Provider Active Archana Barkman , WEB PRODUCTION ASSISTANT-C Attending Provider Active Transformer Builder Relationship Specialty Start Date End Date Kunal Temple MD [address] [place] [address] PCP - General 07/20/04 Transformer Builder Relationship Specialty Start Date End Date Kunal Temple MD [address] [place] [address] PCP - General 07/20/04 Team Status: Active Member Role Status Dates Dr. Kunal Cadena MD Family Provider Active Guido Aguayo MD Primary Care Provider Active Team Status: Inactive Member Role Status Dates Guido Aguayo MD Primary Care Provider Active Lucie Harris NP-C Attending Provider, Referr ing Provider Active Transformer Builder Relationship Specialty Start Date End Date Kunal Temple MD [address] [place] [address] PCP - General 07/20/04 Transformer Builder Relationship Specialty Start Date End Date Kunal Temple MD [address] [place] [address] PCP - General 07/20/04 Transformer Builder Relationship Specialty Start Date End Date Kunal Temple MD [address] [place] [address] PCP - General 07/20/04 Transformer Builder Relationship Specialty Start Date End Date Kunal Temple MD [address] [place] [address] PCP - General 07/20/04 Transformer Builder Relationship Specialty Start Date End Date Kunal Temple MD [address] [place] [address] PCP - General 07/20/04 Team Status: Inactive Member Role Status Dates Guido Aguayo MD Primary Care Provider Active St art: October 30, 2024 End: October 30, 2024 Junaid Lott WEB PRODUCTION ASSISTANT, WEB PRODUCTION ASSISTANT-C Attending Provider Active Start: October 30, 2024 End: October 30, 2024 Junaid Lott WEB PRODUCTION ASSISTANT, WEB PRODUCTION ASSISTANT-C Referring Provider Active Start: October 30, 2024 End: October 30, 2024 Team Status: Active Member Role/Relationship Status Kate Aguayo MD Primary Care Provider Active Team Status: Inactive Member Role/Relationship Status Kate Aguayo MD Primary Care Provider Active St art: October 30, 2024 End: October 30, 2024 Junaid Lott WEB PRODUCTION ASSISTANT, WEB PRODUCTION ASSISTANT-C Attending Provider Active Start: October 30, 2024 End: October 30, 2024 Junaid Lott WEB PRODUCTION ASSISTANT, WEB PRODUCTION ASSISTANT-C Referring Provider Active Start: October 30, 2024 End: October 30, 2024 Team Status: Inactive Member Role/Relationship Status Kate Aguayo MD Primary Care Provider Active St art: November 28, 2024 End: November 28, 2024 Guido Aguayo MD Attending Provider Active Start : November 28, 2024 End: November 28, 2024 Guido Aguayo MD Referring Provider Active Start : November 28, 2024 End: November 28, 2024 Team Status: Inactive Member Role/Relationship Status Kate Aguayo MD Primary Care Provider Active St art: December 11, 2024 End: December 11, 2024 Guido Aguayo MD Referring Provider Active Start : December 11, 2024 End: December 11, 2024 JERALD Rodriguez Attending Provider Active Start: December 11, 2024 End: December 11, 2024 Transformer Builder Relationship Specialty Start Date End Date Kunal Temple MD [address] [place] [address] PCP - General 07/20/04 Source Comments (unrecognize d section and content) In the event this informatio n is protected by the Federal Confidentiality of Alcohol and Drug Abuse Patient Records regulations: The Federal rules restrict any use of the information to criminally investigate or prosecute any alcohol or drug abuse patient.[facility] the event this information is protected by the Federal Confidentiality of Alcohol and Drug Abuse Patient Records regulations: The Federal rules restrict any use of the information to criminally investigate or prosecute any alcohol or drug abuse patient.[facility]In the event this information is protected by the Federal Confidentiality of Alcohol and Drug Abuse Patient Records regulations: The Federal rules restrict any use of the information to criminally investigate or prosecute any alcohol or drug abuse patient.[facility]In the event this information is protected by the Federal Confidentiality of Alcohol and Drug Abuse Patient Records regulations: The Federal rules restrict any use of the information to criminally investigate or prosecute any alcohol or drug abuse patient.[facility]In the event this information is protected by the Federal Confidentiality of Alcohol and Drug Abuse Patient Records regulations: The Federal rules restrict any use of the information to criminally investigate or prosecute any alcohol or drug abuse patient.[facility] HospitalIn the event this information is protected by the Federal Confidentiality of Alcohol and Drug Abuse Patient Records regulations: The Federal rules restrict any use of the information to criminally investigate or prosecute any alcohol or drug abuse patient.[facility] the event this information is protected by the Federal Confidentiality of Alcohol and Drug Abuse Patient Records regulations: The Federal rules restrict any use of the information to criminally investigate or prosecute any alcohol or drug abuse patient.[facility] the event this information is protected by the Federal Confidentiality of Alcohol and Drug Abuse Patient Records regulations: The Federal rules restrict any use of the information to criminally investigate or prosecute any alcohol or drug abuse patient.[facility] Reason for Visit (unrecogniz ed section and content) Reason Comments Yearly Exam With Mammogram 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 [facility] [facility] provides no warranty or guarantee of the accuracy or completeness of information in this document.
[2024-12-16 12:08] LABS: H. PYLORI STOOL AG Negative (Negative)
[2024-12-18 13:08] LABS: Calprotectin, Stool 6 ug/g (0-120)
== END | disposition home or self-care (01) ==
LOC: LABSPEC 07:06
PROVIDERS: PCP Family Medicine; Referring Provider Student in an Organized Health Care Education/Training Program; Visit Provider Student in an Organized Health Care Education/Training Program
DX: R19.8 Other specified symptoms and signs involving the digestive system and abdomen (principal); R11.2 Nausea with vomiting, unspecified; K21.9 Gastro-esophageal reflux disease without esophagitis; K58.9 Irritable bowel syndrome, unspecified
CPT/HCPCS: 83993; 87338; 87493; 87506